=== PATIENT | female | born 1935 | race African-American/Black ===

== ENCOUNTER 2021-02-22 11:55 | Inpatient (IN) | payer MEDICARE, SELFPAY ==
[2021-02-22] VITALS (7 sets, daily range): BP systolic 172–212; BP diastolic 69–113; PULSE 58–86; RESP 11–20; TEMP 36.5–37; O2SAT 80–99; BMI 24.3
--- NOTE | 2021-02-22 | ECG_ITS ---
Test Reason : CP Blood Pressure : / mmHG Vent. Rate : 084 BPM Atrial Rate : 084 BPM P-R Int : 170 ms QRS Dur : 088 ms QT Int : 376 ms P-R-T Axes : 054 -19 134 degrees QTc Int : 444 ms Normal sinus rhythm Possible Left atrial enlargement Left ventricular hypertrophy with repolarization abnormality Abnormal ECG When compared with ECG of 24-DEC-2009 12:51, No significant change was found Referred By: Generic ED Physician Electronically Signed By:Shen Foley
--- NOTE | 2021-02-22 | ECG_ITS ---
Test Reason : CHEST PAIN Blood Pressure : / mmHG Vent. Rate : 067 BPM Atrial Rate : 067 BPM P-R Int : 166 ms QRS Dur : 082 ms QT Int : 444 ms P-R-T Axes : 049 -09 156 degrees QTc Int : 469 ms Normal sinus rhythm Possible Left atrial enlargement Left ventricular hypertrophy with repolarization abnormality Abnormal ECG When compared with ECG of 22-FEB-2021 12:04, T wave inversion now evident in Anterior leads Referred By: Prosper Rowland Electronically Signed By:Shen Foley
--- NOTE | ~2021-02-22 | XR_ITS ---
EXAMINATION: XR CHEST CLINICAL INFORMATION: Left-sided chest pain COMPARISON: Chest radiograph 12/24/2009 TECHNIQUE: 2 views of the chest were obtained. FINDINGS: There is mild cardiopericardial enlargement. The vascularity is normal. There is no vascular congestion, airspace consolidation, groundglass opacity, or effusion. No pneumothorax or pleural reaction. The costophrenic sulci are clear. The hilar and mediastinal contours are normal. There are multilevel degenerative changes thoracic spine. XR/XR chest 2V IMPRESSION: Mild cardiopericardial enlargement. Normal vascularity. Lungs clear. No pneumothorax.
[2021-02-22 12:21] LABS: MANUAL DIFF FLAG NO
[2021-02-22 12:25] LABS: Basophils Percent Auto 0.4 % (0-2); Eosinophils Absolute Auto 0.4 X10*3/uL (0.0-0.4); Eosinophils Percent Auto 4.7 % (0-4); Hematocrit 42.9 % (37-47); Hemoglobin 14.2 g/dl (12.0-16.0); Imm Gran Abs Auto 0.02 X10*3/uL (0.00-0.03); Imm Gran Pct Auto 0.2 % (0.0-0.4); Lymphocytes Percent Auto 24.2 % (20-40); Mean Corpuscular HGB Conc 33.1 g/dl (31.0-35.0); Mean Corpuscular Hemoglobin 27.5 pg (27.0-33.0); Mean Platelet Volume 10.5 fL (9.4-12.3); Monocytes Absolute Auto 0.4 X10*3/uL (0.1-1.2); Monocytes Percent Auto 5.3 % (2-11); Neutrophils Absolute Auto 5.3 X10*3/uL (2.0-8.3); Neutrophils Percent Auto 65.2 % (45-73); Platelet Count 204 X10*3/uL (160-400); Red Blood Count 5.17 X10*6/uL (4.20-5.50); Red Cell Distribution Width 15.4 % (11.0-16.0); White Blood Count 8.1 X10*3/uL (4.8-10.8)
[2021-02-22 13:07] LABS: Anion Gap 16 (12-20); Blood Urea Nitrogen 10 mg/dL (9-16); Calcium 9.7 mg/dL (8.4-10.2); Carbon Dioxide 22 mmol/L (22-29); Chloride 107 mmol/L (96-108); Creatinine Clr Calc Pharmacy 42.2; Estimated Glomerular Filt Rate > 60; Glucose Random 92 mg/dL (60-115); Sodium 141 mmol/L (135-145)
[2021-02-22 13:21] LABS: Glucose Urine UA NEG (NEG); Leukocyte Esterase Urine NEG (NEG); Nitrite Urine NEG (NEG); PH 7.5 (5.0-8.0); Specific Gravity - Urine 1.025 (1.005-1.025); Urine Blood TRACE (NEG); Urine Ketones NEG (NEG); Urine Protein 2+ MG/DL (NEG-TRACE)
[2021-02-22 13:26] LABS: Appearance Urine CLEAR; Color Urine YELLOW
[2021-02-22 13:35] LABS: Squamous Epithelial Cell Urine 1+ /LPF; WBC Urine 0-2 /HPF (0-4)
--- NOTE | 2021-02-22 15:03 | ED.CHESTPAIN ---
HPI - Chest Pain General Chief Complaint: Chest Pain Stated Complaint: chest pain Time Seen by Provider: 02/22/21 15:03 Related Data Allergies Allergy/AdvReac Type Severity Reaction Status Date / Time acetaminophen [From PERCOCET] Allergy Mild UNKNOWN Unverified 07/20/20 14:58 oxycodone [From PERCOCET] Allergy Mild UNKNOWN Unverified 07/20/20 14:58 pregabalin [From LYRICA] Allergy Mild UNKNOWN Unverified 07/20/20 14:58 Sulfa (Sulfonamide Allergy Unknown HIVES Unverified 07/20/20 14:58 Antibiotics) [SULFA(SULFONAMIDE ANTIBIOTICS)] sulfur Allergy Unknown Verified 03/01/13 00:00 [facility] Past Medical History Medical History (Updated 02/22/21 @ 12:54 by Henry Swanson) Arthritis Asthma GERD (gastroesophageal reflux disease) HLD (hyperlipidemia) Hypothyroid Spondylolysis Surgical History (Updated 02/22/21 @ 12:54 by Henry Swanson) History of hysterectomy Physical Exam Vital Signs: Vital Signs: Last Vital Signs Temp 98.4 F 02/22/21 12:50 Pulse 81 02/22/21 12:50 Resp 18 02/22/21 12:50 BP 207/95 H 02/22/21 12:50 Pulse Ox 99 02/22/21 12:50 Body Mass Index 24.3 Course Course Course Narrative: 1500-This is a rapid medical exam. 85 yo female with past medical history of chronic left sided cp for quite some time worsened over the last 1.5 weeks with no associated symptoms. Will check CXR, EKG, labs. Deferred additional HPI, ROS and PE to primary provider. MDM - Chest Pain Lab Data Result diagrams: 02/22/21 12:15 02/22/21 12:15 Labs: Lab Results 02/22/21 02/22/21 02/22/21 Range/Units 12:15 12:15 12:15 WBC 8.1 (4.8-10.8) X10*3/uL RBC 5.17 (4.20-5.50) X10*6/uL Hgb 14.2 (12.0-16.0) g/dl Hct 42.9 (37-47) % MCV 83.0 (80-98) fL MCH 27.5 (27.0-33.0) pg MCHC 33.1 (31.0-35.0) g/dl RDW 15.4 (11.0-16.0) % Plt Count 204 (160-400) X10*3/uL MPV 10.5 (9.4-12.3) fL Immature Gran % (Auto) 0.2 (0.0-0.4) % Neut % (Auto) 65.2 (45-73) % Lymph % (Auto) 24.2 (20-40) % [place] % (Auto) 5.3 (2-11) % Eos % (Auto) 4.7 H (0-4) % Baso % (Auto) 0.4 (0-2) % Lymph # (Auto) 2.0 (1.2-4.9) X10*3/uL [place] # (Auto) 0.4 (0.1-1.2) X10*3/uL Eos # (Auto) 0.4 (0.0-0.4) X10*3/uL Baso # (Auto) 0.0 (0.0-0.2) X10*3/uL Abs Immat Gran (auto) 0.02 (0.00-0.03) X10*3/uL Absolute Neuts (auto) 5.3 (2.0-8.3) X10*3/uL Absolute Nucleated RBC 0.000 (0.0-0.012) X10*3/uL Nucleated RBC % (auto) 0.0 (0.0-0.2) /100WBC Sodium 141 (135-145) mmol/L Potassium 4.0 (3.3-5.1) mmol/L Chloride 107 (96-108) mmol/L Carbon Dioxide 22 (22-29) mmol/L Anion Gap 16 (12-20) BUN 10 (9-16) mg/dL Creatinine 0.84 (0.5-1.4) mg/dL Estim Creat Clear Calc 42.2 Estimated GFR > 60 Random Glucose 92 (60-115) mg/dL Calcium 9.7 (8.4-10.2) mg/dL Troponin I High Sens 13.0 (<3.5-17.0) ng/L Urine Color Urine Appearance Urine pH (5.0-8.0) Ur Specific [place] (1.005-1.025) Urine Protein (NEG-TRACE) MG/DL Urine Glucose (UA) (NEG) MG/DL Urine Ketones (NEG) MG/DL Urine Blood (NEG) Urine Nitrite (NEG) Ur Leukocyte Esterase (NEG) Urine RBC (0) /HPF Urine WBC (0-4) /HPF Ur Squamous Epith Cells /LPF Urine Bacteria /LPF 02/22/21 Range/Units 13:03 WBC (4.8-10.8) X10*3/uL RBC (4.20-5.50) X10*6/uL Hgb (12.0-16.0) g/dl Hct (37-47) % MCV (80-98) fL MCH (27.0-33.0) pg MCHC (31.0-35.0) g/dl RDW (11.0-16.0) % Plt Count (160-400) X10*3/uL MPV (9.4-12.3) fL Immature Gran % (Auto) (0.0-0.4) % Neut % (Auto) (45-73) % Lymph % (Auto) (20-40) % [place] % (Auto) (2-11) % Eos % (Auto) (0-4) % Baso % (Auto) (0-2) % Lymph # (Auto) (1.2-4.9) X10*3/uL [place] # (Auto) (0.1-1.2) X10*3/uL Eos # (Auto) (0.0-0.4) X10*3/uL Baso # (Auto) (0.0-0.2) X10*3/uL Abs Immat Gran (auto) (0.00-0.03) X10*3/uL Absolute Neuts (auto) (2.0-8.3) X10*3/uL Absolute Nucleated RBC (0.0-0.012) X10*3/uL Nucleated RBC % (auto) (0.0-0.2) /100WBC Sodium (135-145) mmol/L Potassium (3.3-5.1) mmol/L Chloride (96-108) mmol/L Carbon Dioxide (22-29) mmol/L Anion Gap (12-20) BUN (9-16) mg/dL Creatinine (0.5-1.4) mg/dL Estim Creat Clear Calc Estimated GFR Random Glucose (60-115) mg/dL Calcium (8.4-10.2) mg/dL Troponin I High Sens (<3.5-17.0) ng/L Urine Color YELLOW Urine Appearance CLEAR Urine pH 7.5 (5.0-8.0) Ur Specific [place] 1.025 (1.005-1.025) Urine Protein 2+ H (NEG-TRACE) MG/DL Urine Glucose (UA) NEG (NEG) MG/DL Urine Ketones NEG (NEG) MG/DL Urine Blood TRACE (NEG) Urine Nitrite NEG (NEG) Ur Leukocyte Esterase NEG (NEG) Urine RBC 5-9 H (0) /HPF Urine WBC 0-2 (0-4) /HPF Ur Squamous Epith Cells 1+ /LPF Urine Bacteria NONE /LPF
[2021-02-22 16:03] LABS: Alanine Aminotransferase 13 U/L (0-31); Albumin Level 4.5 g/dL (3.5-5.0); Alkaline Phosphatase 79 U/L (39-117); Aspartate Amino Transferase 23 U/L (5-31); Bilirubin Direct 0.2 mg/dL (0.0-0.5); Bilirubin Total 0.8 mg/dL (0.0-1.0); Lipase 45 U/L (8-78); Total Protein 7.9 g/dL (6.5-8.0)
[2021-02-22 16:47] LABS: Troponin-I High Sensitivity 21.6 ng/L (<3.5-17.0)
--- NOTE | 2021-02-22 17:04 | ED.CHESTPAIN ---
HPI - Chest Pain General Chief Complaint: Chest Pain Stated Complaint: chest pain Time Seen by Provider: 02/22/21 15:03 Source: patient Mode of arrival: ambulatory Limitations: no limitations History of Present Illness HPI narrative: Patient history of hypertension high cholesterol hypothyroidism been having left-sided chest pain off and on for 2 yrs had multiple stress tests in the past been having chest pain for last 2 weeks got worse today since 07:00 o'clock when she woke up she noticed left-sided chest pain which is not going away , going to the left arm and left side of the neck on arrival patient's blood pressure was 207/95 with heart rate of 81 beats per minute no diaphoresis no nausea no vomiting no shortness of breath no cough MD complaint: chest pain Related Data Allergies Allergy/AdvReac Type Severity Reaction Status Date / Time acetaminophen [From PERCOCET] Allergy Mild UNKNOWN Verified 02/22/21 20:43 oxycodone [From PERCOCET] Allergy Mild UNKNOWN Verified 02/22/21 20:43 pregabalin [From LYRICA] Allergy Mild UNKNOWN Verified 02/22/21 20:43 Sulfa (Sulfonamide Allergy Unknown HIVES Verified 02/22/21 20:43 Antibiotics) [SULFA(SULFONAMIDE ANTIBIOTICS)] sulfur Allergy Unknown Unknown Verified 02/22/21 20:43 Review of Systems Review of Systems: Constitutional : No Weight loss, No Fever, No Chills ENT/Mouth : No sore throat, No Rhinorrhea Eyes: No Eye Pain, No Swelling Cardiovascular : + Chest Pain, no palpitations Respiratory : No Cough, No Sputum, no shortness of breath Gastrointestinal : no Nausea, No Vomiting, No Diarrhea, No abdominal Pain, no black stools Genitourinary : No Dysuria, No Urinary Frequency Musculoskeletal : No joint pain, No Myalgias, No Joint Swelling Skin : No Skin Lesions, No rash Neuro : No Weakness, No Numbness, No Dizziness, No Headache Psych : No Anxiety/Panic, No Depression Heme/Lymph: No Bruising, No Lymphadenopathy Endocrine : No Polyuria, No Polydipsia All other systems reviewed and are negative PMFSH Past Medical History Medical History Arthritis Asthma GERD (gastroesophageal reflux disease) HLD (hyperlipidemia) Hypertension Hypothyroid Spondylolysis Surgical History History of hysterectomy Social History Social History Alcohol intake: never Smoking Status: Unknown if ever smoked Use of substances other than those prescribed or required for medical reasons: No Advance Directives: No Advance Directives Information Provided: Yes Physical Exam Vital Signs: Vital Signs: Last Vital Signs Temp 97.7 F 02/22/21 23:50 Pulse 58 02/22/21 23:50 Resp 11 L 02/22/21 23:50 BP 172/69 H 02/22/21 23:50 Pulse Ox 97 02/22/21 23:50 Body Mass Index 24.3 Appearance: Alert. Oriented X3. No acute distress. Eyes: Pupils equal, round and reactive to light. ENT: Pharynx normal. Neck: Normal inspection. Neck supple. CVS: Normal heart rate and rhythm. Pulses normal. Respiratory: No respiratory distress. Breath sounds normal. Abdomen: Soft and nontender. Bowel sounds are present, no mass palpable, no CVA tenderness Skin: Skin warm and dry. Normal skin color. Normal skin turgor. Extremities: No lower extremity edema. No calf tenderness Neuro: Oriented X 3. No motor deficit. No sensory deficit. MDM - Chest Pain MDM Narrative Medical decision making narrative: Patient with left-sided chest pain with history of hiatal hernia continuous chest pain for last 12 hours EKG showed T inversion in inferolateral leads with LVH more prominent in the 2nd EKG facially on V2 and V3 troponin slightly increased to 26.4 from 13 earlier today. 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 Result diagrams: 02/22/21 12:15 02/22/21 12:15 Labs: Lab Results 02/22/21 02/22/21 02/22/21 Range/Units 12:15 12:15 12:15 WBC 8.1 (4.8-10.8) X10*3/uL RBC 5.17 (4.20-5.50) X10*6/uL Hgb 14.2 (12.0-16.0) g/dl Hct 42.9 (37-47) % MCV 83.0 (80-98) fL MCH 27.5 (27.0-33.0) pg MCHC 33.1 (31.0-35.0) g/dl RDW 15.4 (11.0-16.0) % Plt Count 204 (160-400) X10*3/uL MPV 10.5 (9.4-12.3) fL Immature Gran % (Auto) 0.2 (0.0-0.4) % Neut % (Auto) 65.2 (45-73) % Lymph % (Auto) 24.2 (20-40) % [place] % (Auto) 5.3 (2-11) % Eos % (Auto) 4.7 H (0-4) % Baso % (Auto) 0.4 (0-2) % Lymph # (Auto) 2.0 (1.2-4.9) X10*3/uL [place] # (Auto) 0.4 (0.1-1.2) X10*3/uL Eos # (Auto) 0.4 (0.0-0.4) X10*3/uL Baso # (Auto) 0.0 (0.0-0.2) X10*3/uL Abs Immat Gran (auto) 0.02 (0.00-0.03) X10*3/uL Absolute Neuts (auto) 5.3 (2.0-8.3) X10*3/uL Absolute Nucleated RBC 0.000 (0.0-0.012) X10*3/uL Nucleated RBC % (auto) 0.0 (0.0-0.2) /100WBC Sodium 141 (135-145) mmol/L Potassium 4.0 (3.3-5.1) mmol/L Chloride 107 (96-108) mmol/L Carbon Dioxide 22 (22-29) mmol/L Anion Gap 16 (12-20) BUN 10 (9-16) mg/dL Creatinine 0.84 (0.5-1.4) mg/dL Estim Creat Clear Calc 42.2 Estimated GFR > 60 Random Glucose 92 (60-115) mg/dL Calcium 9.7 (8.4-10.2) mg/dL Total Bilirubin 0.8 (0.0-1.0) mg/dL Direct Bilirubin 0.2 (0.0-0.5) mg/dL AST 23 (5-31) U/L ALT 13 (0-31) U/L Alkaline Phosphatase 79 (39-117) U/L Troponin I High Sens 13.0 (<3.5-17.0) ng/L Total Protein 7.9 (6.5-8.0) g/dL Albumin 4.5 (3.5-5.0) g/dL Lipase 45 (8-78) U/L Urine Color Urine Appearance Urine pH (5.0-8.0) Ur Specific [place] (1.005-1.025) Urine Protein (NEG-TRACE) MG/DL Urine Glucose (UA) (NEG) MG/DL Urine Ketones (NEG) MG/DL Urine Blood (NEG) Urine Nitrite (NEG) Ur Leukocyte Esterase (NEG) Urine RBC (0) /HPF Urine WBC (0-4) /HPF Ur Squamous Epith Cells /LPF Urine Bacteria /LPF 02/22/21 02/22/21 02/22/21 Range/Units 13:03 15:41 19:28 WBC (4.8-10.8) X10*3/uL RBC (4.20-5.50) X10*6/uL Hgb (12.0-16.0) g/dl Hct (37-47) % MCV (80-98) fL MCH (27.0-33.0) pg MCHC (31.0-35.0) g/dl RDW (11.0-16.0) % Plt Count (160-400) X10*3/uL MPV (9.4-12.3) fL Immature Gran % (Auto) (0.0-0.4) % Neut % (Auto) (45-73) % Lymph % (Auto) (20-40) % [place] % (Auto) (2-11) % Eos % (Auto) (0-4) % Baso % (Auto) (0-2) % Lymph # (Auto) (1.2-4.9) X10*3/uL [place] # (Auto) (0.1-1.2) X10*3/uL Eos # (Auto) (0.0-0.4) X10*3/uL Baso # (Auto) (0.0-0.2) X10*3/uL Abs Immat Gran (auto) (0.00-0.03) X10*3/uL Absolute Neuts (auto) (2.0-8.3) X10*3/uL Absolute Nucleated RBC (0.0-0.012) X10*3/uL Nucleated RBC % (auto) (0.0-0.2) /100WBC Sodium (135-145) mmol/L Potassium (3.3-5.1) mmol/L Chloride (96-108) mmol/L Carbon Dioxide (22-29) mmol/L Anion Gap (12-20) BUN (9-16) mg/dL Creatinine (0.5-1.4) mg/dL Estim Creat Clear Calc Estimated GFR Random Glucose (60-115) mg/dL Calcium (8.4-10.2) mg/dL Total Bilirubin (0.0-1.0) mg/dL Direct Bilirubin (0.0-0.5) mg/dL AST (5-31) U/L ALT (0-31) U/L Alkaline Phosphatase (39-117) U/L Troponin I High Sens 21.6 H D 26.4 H (<3.5-17.0) ng/L Total Protein (6.5-8.0) g/dL Albumin (3.5-5.0) g/dL Lipase (8-78) U/L Urine Color YELLOW Urine Appearance CLEAR Urine pH 7.5 (5.0-8.0) Ur Specific [place] 1.025 (1.005-1.025) Urine Protein 2+ H (NEG-TRACE) MG/DL Urine Glucose (UA) NEG (NEG) MG/DL Urine Ketones NEG (NEG) MG/DL Urine Blood TRACE (NEG) Urine Nitrite NEG (NEG) Ur Leukocyte Esterase NEG (NEG) Urine RBC 5-9 H (0) /HPF Urine WBC 0-2 (0-4) /HPF Ur Squamous Epith Cells 1+ /LPF Urine Bacteria NONE /LPF ECG Data ECG #1: Attestation: I personally reviewed and interpreted this ECG as follows: Interpretation: Normal sinus syndrome heart rate 84 beats per minute left atrial enlargement LVH with strain pattern no acute ST T wave changes normal axis no acute ischemia
[2021-02-22] MEDS: Nitroglycerin 2 % Oint 1 GM Packet 1 INCH TRANSDERMA (17:53)
[2021-02-22] MEDS: Aspirin Enteric Coated 81 MG TABLET.DR 162 MG PO (17:53)
[2021-02-22] MEDS: Metoprolol Tartrate 5 MG/5 ML VIAL IVPUSH (18:04)
[2021-02-22 20:02] LABS: Troponin-I High Sensitivity 26.4 ng/L (<3.5-17.0)
--- NOTE | 2021-02-22 20:05 | PC.NURSE ---
Pt calling RN reporting 10 central nonradiating chest pain. MD mitchell aware of symtpoms and elevated trop result. EKG currently being obtained.
[2021-02-22] MEDS: Magnesium Hydrox/Alum Hydrox 30 ML ORAL.SUSP PO (20:26)
[2021-02-22] MEDS: Morphine Sulfate 4 MG/ML CARTRIDGE IVPUSH (20:26)
[2021-02-22] MEDS: Heparin Sodium,Porcine 5,000 UNIT/ML VIAL 4000 UNIT IVPUSH (20:26)
[2021-02-22] MEDS: ondansetron HCL 4 MG/2 ML VIAL IVPUSH (20:26)
[2021-02-22] MEDS: Famotidine/PF 20 MG/2 ML VIAL IVPUSH (20:47)
[2021-02-22] MEDS: Heparin Sodium,Porcine/1/2NS 25,000 UNIT/250 ML IV.SOLN 7.73 UNIT IVCONT (21:11)
--- NOTE | 2021-02-22 22:07 | PC.NURSE ---
Pt continues to have chest pain central with some stabbing pain in left shoulder. MD Gibbons aware.
[2021-02-22] MEDS: Lidocaine HCl Viscous 2 % 15 ML SOLUTION MUCOUS MEM (22:40)
--- NOTE | 2021-02-23 | ECG_ITS ---
Test Reason : REPEAT Blood Pressure : / mmHG Vent. Rate : 055 BPM Atrial Rate : 055 BPM P-R Int : 170 ms QRS Dur : 084 ms QT Int : 488 ms P-R-T Axes : 054 -14 174 degrees QTc Int : 466 ms Sinus bradycardia with Premature atrial complexes Left ventricular hypertrophy with repolarization abnormality Abnormal ECG When compared with ECG of 23-FEB-2021 02:13, Premature atrial complexes are now Present Referred By: Prosper Rowland Electronically Signed By:SONIDO JOHNSON MD
--- NOTE | 2021-02-23 | ECG_ITS ---
Test Reason : CHEST PAIN Blood Pressure : / mmHG Vent. Rate : 064 BPM Atrial Rate : 064 BPM P-R Int : 170 ms QRS Dur : 084 ms QT Int : 448 ms P-R-T Axes : 059 -06 156 degrees QTc Int : 462 ms Normal sinus rhythm Possible Left atrial enlargement Left ventricular hypertrophy with repolarization abnormality Abnormal ECG When compared with ECG of 22-FEB-2021 20:08, No significant change was found Referred By: Prosper Rowland Electronically Signed By:Shen Foley
[2021-02-23 01:03] LABS: Troponin-I High Sensitivity 22.7 ng/L (<3.5-17.0)
--- NOTE | 2021-02-23 02:32 | PC.NURSE ---
PT moved to room 14 because the noise and stimulation in room 13 was causing the PT to have anxiety and subsequent chest pain. EKG was done with no significant findings.
[2021-02-23 02:34] VITALS: BP 171/69; PULSE 64; RESP 18; O2SAT 95
--- NOTE | 2021-02-23 04:23 | PM.IMHP ---
History of Present Illness Date of Service: 02/22/21 Chief Complaint: Chest pain This is a pleasant 85-year-old female with past medical history of hypothyroidism, HLD, who presents to the hospital with complaints of chest pain. Patient reports that she has had this chest pain intermittently for the past 2 years but she had 2 episodes on Friday and today. She reports that the pain is midsternal, comes on spontaneously, localized to the midsternal region, feels like something sitting on her chest, last few minutes and resolved spontaneously. She reports that today's episode has remained with her all day, she had 1 episode in the ED where she felt a squeezing in her chest and the pain was 10/10. She otherwise denies any headache, change in vision, no shortness of breath, no palpitation, no abdominal pain nausea or vomiting, no diarrhea constipation, no urinary symptoms and no lower extremity edema. On arrival to the ED hemodynamically stable with no significant abnormal vitals except for elevated blood pressure of 207/95, improved to 170 1/69 at this time Labs are significant for WBC of 8.1, hemoglobin of 14.2, initial high sensitivity troponin of 13 that increased to 21 than 226. Now is 22.7 EKG shows T-wave inversions in lead 1, aVL, V5 and V6. Case was discussed with Cardiology and decision was made to admit patient for NSTEMI. Patient was placed on heparin GGT. Past medical history as below and confirmed with patient Review of Systems Review of Systems: Yes all other systems are reviewed and are negative [facility] Medical History Arthritis Asthma GERD (gastroesophageal reflux disease) HLD (hyperlipidemia) Hypertension Hypothyroid Spondylolysis Surgical History History of hysterectomy Social History Alcohol intake: never Smoking Status: Unknown if ever smoked Use of substances other than those prescribed or required for medical reasons: No Advance Directives: No Advance Directives Information Provided: Yes Meds Allergies Allergy/AdvReac Type Severity Reaction Status Date / Time acetaminophen [From PERCOCET] Allergy Mild UNKNOWN Verified 02/22/21 20:43 oxycodone [From PERCOCET] Allergy Mild UNKNOWN Verified 02/22/21 20:43 pregabalin [From LYRICA] Allergy Mild UNKNOWN Verified 02/22/21 20:43 Sulfa (Sulfonamide Allergy Unknown HIVES Verified 02/22/21 20:43 Antibiotics) [SULFA(SULFONAMIDE ANTIBIOTICS)] sulfur Allergy Unknown Unknown Verified 02/22/21 20:43 Active Medications: Current Medications Generic Name Dose Route Start Last Admin Trade Name Freq PRN Reason Stop Dose Admin Heparin Sodium/Sodium Chloride 25,000 unit in 250 mls @ 0 mls/hr 02/22/21 20:30 02/22/21 21:11 IVCONT 12 units/kg/hr .Q0M ELVIA 7.73 mls/hr Administration Protocol Per Protocol Physical Exam Vital Signs and Narrative: Vital Signs: Last Vital Signs Temp 97.7 F 02/22/21 23:50 Pulse 64 02/23/21 02:34 Resp 18 02/23/21 02:34 BP 171/69 H 02/23/21 02:34 Pulse Ox 95 02/23/21 02:34 Body Mass Index 24.3 Const: General: cooperative and no acute distress Orientation/consciousness: patient oriented x3 Eyes: General: appearance normal, both eyes and all related structures Resp: Effort & Inspection: normal respiratory effort and able to speak in complete sentences Cardio: Rate: regular rate Rhythm: regular rhythm GI: Palpation (GI): Soft to palpation Auscultation: normal bowel sounds Skin: General skin exam: no rashes or lesions noted Neuro: General: patient oriented x3 Cognition (Neuro): normal cognition Extrem: General: Yes normal to inspection and Yes no pedal edema Results Labs CBC and Chem 7: 02/22/21 12:15 02/22/21 12:15 Labs: Laboratory Results - last 24 hr 02/22/21 02/22/21 02/22/21 12:15 12:15 12:15 MCV 83.0 MCH 27.5 MCHC 33.1 RDW 15.4 Plt Count 204 MPV 10.5 Immature Gran % (Auto) 0.2 Neut % (Auto) 65.2 Lymph % (Auto) 24.2 [place] % (Auto) 5.3 Eos % (Auto) 4.7 H Baso % (Auto) 0.4 Lymph # (Auto) 2.0 [place] # (Auto) 0.4 Eos # (Auto) 0.4 Baso # (Auto) 0.0 Abs Immat Gran (auto) 0.02 Absolute Neuts (auto) 5.3 Absolute Nucleated RBC 0.000 Nucleated RBC % (auto) 0.0 Anion Gap 16 Estim Creat Clear Calc 42.2 Estimated GFR > 60 Random Glucose 92 Calcium 9.7 Total Bilirubin 0.8 Direct Bilirubin 0.2 AST 23 ALT 13 Alkaline Phosphatase 79 Troponin I High Sens 13.0 Total Protein 7.9 Albumin 4.5 Lipase 45 Urine Color Urine Appearance Urine pH Ur Specific [place] Urine Protein Urine Glucose (UA) Urine Ketones Urine Blood Urine Nitrite Ur Leukocyte Esterase Urine RBC Urine WBC Ur Squamous Epith Cells Urine Bacteria 02/22/21 02/22/21 02/22/21 13:03 15:41 19:28 MCV MCH MCHC RDW Plt Count MPV Immature Gran % (Auto) Neut % (Auto) Lymph % (Auto) [place] % (Auto) Eos % (Auto) Baso % (Auto) Lymph # (Auto) [place] # (Auto) Eos # (Auto) Baso # (Auto) Abs Immat Gran (auto) Absolute Neuts (auto) Absolute Nucleated RBC Nucleated RBC % (auto) Anion Gap Estim Creat Clear Calc Estimated GFR Random Glucose Calcium Total Bilirubin Direct Bilirubin AST ALT Alkaline Phosphatase Troponin I High Sens 21.6 H D 26.4 H Total Protein Albumin Lipase Urine Color YELLOW Urine Appearance CLEAR Urine pH 7.5 Ur Specific [place] 1.025 Urine Protein 2+ H Urine Glucose (UA) NEG Urine Ketones NEG Urine Blood TRACE Urine Nitrite NEG Ur Leukocyte Esterase NEG Urine RBC 5-9 H Urine WBC 0-2 Ur Squamous Epith Cells 1+ Urine Bacteria NONE 02/23/21 00:30 MCV MCH MCHC RDW Plt Count MPV Immature Gran % (Auto) Neut % (Auto) Lymph % (Auto) [place] % (Auto) Eos % (Auto) Baso % (Auto) Lymph # (Auto) [place] # (Auto) Eos # (Auto) Baso # (Auto) Abs Immat Gran (auto) Absolute Neuts (auto) Absolute Nucleated RBC Nucleated RBC % (auto) Anion Gap Estim Creat Clear Calc Estimated GFR Random Glucose Calcium Total Bilirubin Direct Bilirubin AST ALT Alkaline Phosphatase Troponin I High Sens 22.7 H Total Protein Albumin Lipase Urine Color Urine Appearance Urine pH Ur Specific [place] Urine Protein Urine Glucose (UA) Urine Ketones Urine Blood Urine Nitrite Ur Leukocyte Esterase Urine RBC Urine WBC Ur Squamous Epith Cells Urine Bacteria Imaging Radiologist's Impressions: Impressions Chest X-Ray 02/22/21 15:04 IMPRESSION: Mild cardiopericardial enlargement. Normal vascularity. Lungs clear. No pneumothorax. Assessment and Plan (1) Non-STEMI (non-ST elevated myocardial infarction): Status: Acute 85-year-old female past medical history of hypothyroidism, asthma, hypertension presents to the hospital with chest pain found to have NSTEMI # NSTEMI - typical chest pain, slightly elevated troponin, EKG showing T-wave inversions in V5, V6, 1 and aVL - was hypertensive on arrival which may have caused or contributed - high sensitivity troponin trended up to 27 - patient placed on heparin GGT - will obtain echocardiogram - cardiology consult - start on Lopressor, and high-dose statin # hypertensive urgency - patient blood pressure of 207/97 on arrival - currently 170s over 69 - it does not appear that patient is on any medications for hypertension at home - will start her on lisinopril 10 mg and can titrate up as appropriate # Hypothyroidsim - continue home meds # Asthma - no exacerbation - continue PRN inhalers Med review still pending by nursing staff DVT prophylaxis:heparin
[2021-02-23 05:23] LABS: COVID-19 Test Negative (Negative); IDNOW Serial# 9DD0AD1C
[2021-02-23 06:24] VITALS: BP 176/80; PULSE 58; RESP 18; O2SAT 95
--- NOTE | 2021-02-23 07:34 | CA_ITS ---
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 The visually estimated ejection fraction is >70%. - E/E prime ratio is >15, consistent with elevated filling pressures. - Normal right ventricular cavity size and systolic function. - The left atrium is normal in size. Findings Left Ventricle Normal left ventricular cavity size. There is moderately increased left ventricular wall thickness. The left ventricular systolic function is hyperdynamic. The visually estimated ejection fraction is >70%. There is no evidence of regional wall motion abnormalities. Abnormal diastolic function is noted. Spectral Doppler is indicative of an impaired relaxation filling pattern. E/E prime ratio is >15, consistent with elevated filling pressures. Right Ventricle Normal right ventricular cavity size and systolic function. Atria The left atrium is normal in size. Aortic Valve Normal aortic valve structure and function. There is no aortic valve stenosis. There is no aortic valve regurgitation. Mitral Valve There is moderate mitral annular calcification. There is no mitral valve regurgitation. There is no mitral valve stenosis. Pulmonic Valve The pulmonic valve is likely normal. Tricuspid Valve Normal tricuspid valve structure and function. There is trace tricuspid valve regurgitation. Tricuspid regurgitation envelope is inadequate for calculation of right ventricular systolic pressure. Normal right atrial pressure. Great Vessels All visible segments of the aorta are normal in size. The visualized portions of the pulmonary artery and branches are normal. Venous The inferior vena cava is normal in size and collapses greater than 50% with inspiration. Pericardium/Pleural There is no evidence of pericardial effusion. Prior Study Comparison No prior study available for comparison. Measurements 2D Linear Measurements IVSd: 1.20 0.6-0.9/0.6-1.0 cm LVIDd: 3.42 3.9-5.3/4.2-5.9 cm LVIDd Index: 2.01 2.4-3.2/2.2-3.1 cm/m2 LVIDs: 2.16 2.0-3.6 cm LVPWd: 1.09 0.7-1.1 cm Ao Root: 2.70 2.1-3.5 cm LA Diam: 3.40 2.7-3.8/3.0-4.0 cm LAIDs Index: 2.00 1.5-2.3 cm/m2 LV Mass: 321.27 67-162/88-224 g LV Mass Index: 188.98 43-95/49-115 g/m2 LVOT Diam: 2.10 3.0+(-)1.3 cm Mitral Valve MV Pk E: 0.81 MV PK A: 1.22 MV Decel Time: 306.00 E/A: 0.70 E'Lateral: 3.48 E'Medial: 3.26 E/E' Med: 24.80 E/E' Lat: 23.20 PHT: 90.00 MVA PHT: 2.44 Decel Harnett: 2.64 Aortic Valve AoV Pk Portillo: 1.82 AoV Mn Portillo: 1.10 AoV VTI: 0.35 AoV Pk Grad: 13.00 Aov Mn Grad: 6.00 ROXY Cont.VTI: 2.76 LVOT LVOT Pk Portillo: 1.20 LVOT Mn Portillo: 0.83 LVOT VTI: 0.28 LVOT Pk Grad: 6.00 LVOT Mn Grad: 3.00 LVOT Diam: 2.10 LVOT Area: 3.46 Diastolic Function MV Pk E: 0.81 MV Pk A: 1.22 E/A: 0.70 E'Medial: 3.26 E/E' Med: 24.80 E' Laterial: 3.48 E/E' Lat: 23.20 Tricuspid Valve TR Pk Portillo: 2.58 TR Pk Grad: 27.00 Great Vessels Aorta Ao Root-2D: 2.70 2.0-3.7 cm Ao Asc: 2.90 2.1-3.4 cm Pulmonary Valve PV Pk Portillo: 0.91 Peak PV Grad: 3.00 Updated in Other Vendor System with Status of Final Shen Foley MD electronically signed on 02/23/2021 9:16:25 PM with status of Final
[2021-02-23 07:46] VITALS: BP 200/100; PULSE 72
[2021-02-23] MEDS: Atorvastatin Calcium 40 MG TABLET PO (07:46)
[2021-02-23] MEDS: lisinopriL 10 MG TABLET PO (07:46)
[2021-02-23] MEDS: Aspirin 81 MG TAB.CHEW PO (07:46)
[2021-02-23] MEDS: Metoprolol Tartrate 12.5 MG HALFTAB PO (07:47)
[2021-02-23 07:52] LABS: MANUAL DIFF FLAG NO
[2021-02-23 07:54] LABS: Basophils Percent Auto 0.2 % (0-2); Eosinophils Absolute Auto 0.4 X10*3/uL (0.0-0.4); Eosinophils Percent Auto 3.9 % (0-4); Hematocrit 41.2 % (37-47); Hemoglobin 13.4 g/dl (12.0-16.0); Imm Gran Abs Auto 0.05 X10*3/uL (0.00-0.03); Imm Gran Pct Auto 0.5 % (0.0-0.4); Lymphocytes Absolute Auto 1.9 X10*3/uL (1.2-4.9); Lymphocytes Percent Auto 20.5 % (20-40); Mean Corpuscular HGB Conc 32.5 g/dl (31.0-35.0); Mean Corpuscular Hemoglobin 27.3 pg (27.0-33.0); Mean Corpuscular Volume 83.9 fL (80-98); Mean Platelet Volume 10.5 fL (9.4-12.3); Monocytes Absolute Auto 0.4 X10*3/uL (0.1-1.2); Monocytes Percent Auto 3.7 % (2-11); Neutrophils Absolute Auto 6.7 X10*3/uL (2.0-8.3); Neutrophils Percent Auto 71.2 % (45-73); Platelet Count 177 X10*3/uL (160-400); Red Blood Count 4.91 X10*6/uL (4.20-5.50); Red Cell Distribution Width 15.7 % (11.0-16.0); White Blood Count 9.5 X10*3/uL (4.8-10.8)
[2021-02-23 08:04] LABS: PTT Heparin Drip 98.9 SEC (53-77.9)
[2021-02-23 08:17] LABS: Anion Gap 16 (12-20); Blood Urea Nitrogen 8 mg/dL (9-16); Calcium 9.5 mg/dL (8.4-10.2); Carbon Dioxide 19 mmol/L (22-29); Chloride 105 mmol/L (96-108); Creatinine Clr Calc Pharmacy 42.2; Estimated Glomerular Filt Rate > 60; Glucose Random 121 mg/dL (60-115); Potassium 4.4 mmol/L (3.3-5.1); Sodium 136 mmol/L (135-145)
[2021-02-23 08:24] VITALS: BP 159/50; PULSE 63; RESP 16
--- NOTE | 2021-02-23 09:59 | PM.CNCAR ---
History of Present Illness History of Present Illness Date of Service: 02/23/21 Requesting physician: David Khan Chief complaint: NSTEMI Narrative: 85-year-old female here for CP. She has been noticed to have significantly high blood pressures. She is saying she has had indigestion like feeling ongoing for years. In the last 2 weeks she had persistent indigestion like feeling and then chest pressure yesterday. She said she has persistent chest pressure since yesterday. Her blood pressure was significantly elevated and was as high as 200/113. At the time of interview she said she is still having some chest pressure. She was physically active at home and was riding a bike and doing some exercises without symptoms. She also said her blood pressure previously was normal. ECG is showing anterolateral T-wave inversions which are new. We have done a bedside echocardiogram and I looked at the wall motion while it was being done at was completely normal. She has significant left ventricular hypertrophy. Cardiac enzymes went up slightly but repeat testing was flat. She was started on heparin drip and is on heparin drip right now. Review of Systems Review of Systems: Chest pressure Yes all other systems are reviewed and are negative [facility] Past Medical History Medical History Arthritis Asthma GERD (gastroesophageal reflux disease) HLD (hyperlipidemia) Hypertension Hypothyroid Spondylolysis Surgical History Surgical History History of hysterectomy Social History Social History Alcohol intake: never Smoking Status: Unknown if ever smoked Use of substances other than those prescribed or required for medical reasons: No Advance Directives: Yes Advance Directives on File: Yes Advance Directives Date on File: 02/23/21 Meds Allergies Allergy/AdvReac Type Severity Reaction Status Date / Time acetaminophen [From PERCOCET] Allergy Mild UNKNOWN Verified 02/22/21 20:43 oxycodone [From PERCOCET] Allergy Mild UNKNOWN Verified 02/22/21 20:43 pregabalin [From LYRICA] Allergy Mild UNKNOWN Verified 02/22/21 20:43 Sulfa (Sulfonamide Allergy Unknown HIVES Verified 02/22/21 20:43 Antibiotics) [SULFA(SULFONAMIDE ANTIBIOTICS)] sulfur Allergy Unknown Unknown Verified 02/22/21 20:43 Active Medications: Current Medications Generic Name Dose Route Start Last Admin Trade Name Freq PRN Reason Stop Dose Admin Amlodipine Besylate 5 mg 02/23/21 10:00 Amlodipine Besylate 5 Mg Tablet PO DAILY [facility] Protocol Aspirin 81 mg 02/23/21 09:00 02/23/21 07:46 Aspirin 81 Mg Tab.Chew PO 81 mg DAILY [facility] Administration Atorvastatin Calcium 40 mg 02/23/21 09:00 02/23/21 07:46 Atorvastatin Calcium 40 Mg Tablet PO 40 mg DAILY [facility] Administration Docusate Sodium 100 mg 02/23/21 07:34 Docusate Sodium 100 Mg Capsule PO DAILY PRN Constipation Heparin Sodium/Sodium Chloride 25,000 unit in 250 mls @ 0 mls/hr 02/22/21 20:30 02/22/21 21:11 IVCONT 12 units/kg/hr .Q0M [facility] 7.73 mls/hr Administration Protocol Per Protocol Lisinopril 10 mg 02/23/21 09:00 02/23/21 07:46 Lisinopril 10 Mg Tablet PO 10 mg DAILY [facility] Administration Protocol Metoprolol Tartrate 12.5 mg 02/23/21 09:00 02/23/21 07:47 Metoprolol Tartrate 12.5 Mg Halftab PO 12.5 mg BID [facility] Administration Protocol Nitroglycerin 1 inch 02/23/21 14:00 Nitroglycerin 2 % Oint 1 Gm Packet TRANSDERMA RQ6H WHILE AWAKE [facility] Ondansetron HCl 4 mg 02/23/21 07:34 Ondansetron Hcl 4 Mg/2 Ml Vial IVPUSH Q8H PRN Nausea and Vomiting Sodium Chloride 3 ml 02/23/21 07:34 02/23/21 08:29 0.9 % Sodium Chloride Flush 3 Ml Syringe IVFLUSH Not Given QSHIFT [facility] Home Medications Medication Instructions Recorded Confirmed Last Taken Type albuterol sulfate 2 puff INHALATION Q6H PRN 02/23/21 02/23/21 02/22/21 History ezetimibe 1 tab PO DAILY 02/23/21 02/23/21 02/22/21 History fluticasone propionate 2 spray INTRANASAL DAILY 02/23/21 02/23/21 02/22/21 History levothyroxine 1 tab PO DAILY 02/23/21 02/23/2121 History montelukast 1 tab PO DAILY 02/23/21 02/23/21 02/22/21 History omeprazole 1 cap PO DAILY 02/23/21 02/23/21 02/22/21 History oxybutynin chloride 1 tab PO DAILY 02/23/21 02/23/21 02/22/21 History rosuvastatin 1 tab PO DAILY 02/23/21 02/23/21 02/22/21 History timolol maleate 1 drp QAM 02/23/21 02/23/21 02/22/21 History Physical Exam Vital Signs: Vital Signs: Last Vital Signs Temp 97.7 F 02/22/21 23:50 Pulse 63 02/23/21 08:24 Resp 16 02/23/21 08:24 BP 159/50 H 02/23/21 08:24 Pulse Ox 95 02/23/21 06:24 Body Mass Index 24.3 GENERAL APPEARANCE: Pleasant, in no acute distress. HEENT: unremarkable. HEAD: normocephalic, atraumatic. NECK/THYROID: no carotid bruit, no jugular venous distention. SKIN: no suspicious lesions, warm and dry. HEART: no murmurs, regular rate and rhythm, S1, S2 normal. LUNGS: Few crackles at bases. ABDOMEN: normal, bowel sounds present, soft, nontender, nondistended. EXTREMITIES: no clubbing, cyanosis, or edema. PERIPHERAL PULSES: equal. NEUROLOGIC: nonfocal, alert and oriented. PSYCH: mood/affect full range. Results Labs and Meds Result diagrams: 02/23/21 07:47 02/23/21 07:47 Lab results: Laboratory Results - last 24 hr 02/22/21 02/22/21 02/22/21 12:15 12:15 12:15 WBC 8.1 RBC 5.17 Hgb 14.2 Hct 42.9 MCV 83.0 MCH 27.5 MCHC 33.1 RDW 15.4 Plt Count 204 MPV 10.5 Immature Gran % (Auto) 0.2 Neut % (Auto) 65.2 Lymph % (Auto) 24.2 [place] % (Auto) 5.3 Eos % (Auto) 4.7 H Baso % (Auto) 0.4 Lymph # (Auto) 2.0 Woodson # (Auto) 0.4 Eos # (Auto) 0.4 Baso # (Auto) 0.0 Abs Immat Gran (auto) 0.02 Absolute Neuts (auto) 5.3 Absolute Nucleated RBC 0.000 Nucleated RBC % (auto) 0.0 PTT (Heparin Protocol) Sodium 141 Potassium 4.0 Chloride 107 Carbon Dioxide 22 Anion Gap 16 BUN 10 Creatinine 0.84 Estim Creat Clear Calc 42.2 Estimated GFR > 60 Random Glucose 92 Calcium 9.7 Total Bilirubin 0.8 Direct Bilirubin 0.2 AST 23 ALT 13 Alkaline Phosphatase 79 Troponin I High Sens 13.0 Total Protein 7.9 Albumin 4.5 Lipase 45 Urine Color Urine Appearance Urine pH Ur Specific [place] Urine Protein Urine Glucose (UA) Urine Ketones Urine Blood Urine Nitrite Ur Leukocyte Esterase Urine RBC Urine WBC Ur Squamous Epith Cells Urine Bacteria COVID-19 (ELAINE) COVID-19 Who@ 02/22/21 02/22/21 02/22/21 13:03 15:41 19:28 WBC RBC Hgb Hct MCV MCH MCHC RDW Plt Count MPV Immature Gran % (Auto) Neut % (Auto) Lymph % (Auto) [place] % (Auto) Eos % (Auto) Baso % (Auto) Lymph # (Auto) [place] # (Auto) Eos # (Auto) Baso # (Auto) Abs Immat Gran (auto) Absolute Neuts (auto) Absolute Nucleated RBC Nucleated RBC % (auto) PTT (Heparin Protocol) Sodium Potassium Chloride Carbon Dioxide Anion Gap BUN Creatinine Estim Creat Clear Calc Estimated GFR Random Glucose Calcium Total Bilirubin Direct Bilirubin AST ALT Alkaline Phosphatase Troponin I High Sens 21.6 H D 26.4 H Total Protein Albumin Lipase Urine Color YELLOW Urine Appearance CLEAR Urine pH 7.5 Ur Specific [place] 1.025 Urine Protein 2+ H Urine Glucose (UA) NEG Urine Ketones NEG Urine Blood TRACE Urine Nitrite NEG Ur Leukocyte Esterase NEG Urine RBC 5-9 H Urine WBC 0-2 Ur Squamous Epith Cells 1+ Urine Bacteria NONE COVID-19 (ELAINE) COVID-19 Who@ 02/23/21 02/23/21 02/23/21 00:30 05:04 07:47 WBC 9.5 RBC 4.91 Hgb 13.4 Hct 41.2 MCV 83.9 MCH 27.3 MCHC 32.5 RDW 15.7 Plt Count 177 MPV 10.5 Immature Gran % (Auto) 0.5 H Neut % (Auto) 71.2 Lymph % (Auto) 20.5 Woodson % (Auto) 3.7 Eos % (Auto) 3.9 Baso % (Auto) 0.2 Lymph # (Auto) 1.9 [place]son # (Auto) 0.4 Eos # (Auto) 0.4 Baso # (Auto) 0.0 Abs Immat Gran (auto) 0.05 H Absolute Neuts (auto) 6.7 Absolute Nucleated RBC 0.000 Nucleated RBC % (auto) 0.0 PTT (Heparin Protocol) Sodium Potassium Chloride Carbon Dioxide Anion Gap BUN Creatinine Estim Creat Clear Calc Estimated GFR Random Glucose Calcium Total Bilirubin Direct Bilirubin AST ALT Alkaline Phosphatase Troponin I High Sens 22.7 H Total Protein Albumin Lipase Urine Color Urine Appearance Urine pH Ur Specific [place] Urine Protein Urine Glucose (UA) Urine Ketones Urine Blood Urine Nitrite Ur Leukocyte Esterase Urine RBC Urine WBC Ur Squamous Epith Cells Urine Bacteria COVID-19 (ELAINE) Negative COVID-19 Clin Com See Note 02/23/21 02/23/21 07:47 07:47 WBC RBC Hgb Hct MCV MCH MCHC RDW Plt Count MPV Immature Gran % (Auto) Neut % (Auto) Lymph % (Auto) [place] % (Auto) Eos % (Auto) Baso % (Auto) Lymph # (Auto) [place] # (Auto) Eos # (Auto) Baso # (Auto) Abs Immat Gran (auto) Absolute Neuts (auto) Absolute Nucleated RBC Nucleated RBC % (auto) PTT (Heparin Protocol) 98.9 H Sodium 136 Potassium 4.4 Chloride 105 Carbon Dioxide 19 L Anion Gap 16 BUN 8 L Creatinine 0.84 Estim Creat Clear Calc 42.2 Estimated GFR > 60 Random Glucose 121 H Calcium 9.5 Total Bilirubin Direct Bilirubin AST ALT Alkaline Phosphatase Troponin I High Sens Total Protein Albumin Lipase Urine Color Urine Appearance Urine pH Ur Specific [place] Urine Protein Urine Glucose (UA) Urine Ketones Urine Blood Urine Nitrite Ur Leukocyte Esterase Urine RBC Urine WBC Ur Squamous Epith Cells Urine Bacteria COVID-19 (ELAINE) COVID-19 Clin Com Imaging Radiologist's impression: Impressions Chest X-Ray 02/22/21 15:04 IMPRESSION: Mild cardiopericardial enlargement. Normal vascularity. Lungs clear. No pneumothorax. Assessment and Plan (1) Non-STEMI (non-ST elevated myocardial infarction): Status: Acute (2) Uncontrolled hypertension: Status: Acute 85-year-old female who is presenting with chest discomfort. She has been experiencing some indigestion like feeling for long time. Over the last 2 weeks she has persistent ejection like feeling and then some chest pressure. With these symptoms she came to [facility] and was found to have significantly elevated blood pressures. She was started on lisinopril and metoprolol and her blood pressure has come down. She is saying with blood pressure control her chest discomfort is improving. Her troponins are very mildly abnormal. Echocardiography is not showing any wall motion abnormality. She has significant left ventricular hypertrophy. I think her presentation is likely due to uncontrolled hypertension. I will repeat her EKG to see if the changes are improving. If she has persistent changes despite blood pressure control then I think we need to transfer to [facility] and consider doing a diagnostic angiogram on her. She is on heparin drip right now which I will continue. We will follow along with you. Thank you for allowing me to participate in the care of your patient. Please feel free to contact me if you have any questions.
--- NOTE | 2021-02-23 10:17 | MHC.CM.PN ---
Attempted to meet with patient in regards to discharge planning. Patient is currently eating breakfast. Will attempt to meet again. Continue to monitor for d/c needs.
[2021-02-23 10:57] VITALS: BP 116/40; PULSE 61; RESP 18; O2SAT 95
--- NOTE | 2021-02-23 12:28 | PM.DS ---
DS: Providers Provider Date of Service: 02/23/21 Date of admission: 02/22/21 23:09 Primary care physician: Gerardo Teresa MD Consults: 02/23/21 07:34 Consult to Cardiology Routine Consulting Provider: Shen Foley Reason for consultation: NSTEMI Has provider been notified: Yes DS: Diagnosis Discharge Diagnosis (1) Non-STEMI (non-ST elevated myocardial infarction): Status: Acute (2) Uncontrolled hypertension: Status: Acute DS: Medications Discharge Medications Home Medications: Home Medications Medication Instructions Recorded Confirmed albuterol sulfate 2 puff INHALATION Q6H PRN 02/23/21 02/23/21 ezetimibe 1 tab PO DAILY 02/23/21 02/23/21 fluticasone propionate 2 spray INTRANASAL DAILY 02/23/21 02/23/21 levothyroxine 1 tab PO DAILY 02/23/21 02/23/21 montelukast 1 tab PO DAILY 02/23/21 02/23/21 omeprazole 1 cap PO DAILY 02/23/21 02/23/21 oxybutynin chloride 1 tab PO DAILY 02/23/21 02/23/21 rosuvastatin 1 tab PO DAILY 02/23/21 02/23/21 timolol maleate 1 drp QAM 02/23/21 02/23/21 DS: Summary Hospital Course Hospital Course: This is a pleasant 85-year-old female with past medical history of hypothyroidism, HLD, who presents to the hospital with complaints of chest pain. Patient reports that she has had this chest pain intermittently for the past 2 years but she had 2 episodes on Friday and today. She reports that the pain is midsternal, comes on spontaneously, localized to the midsternal region, feels like something sitting on her chest, last few minutes and resolved spontaneously. She reports that today's episode has remained with her all day, she had 1 episode in the ED where she felt a squeezing in her chest and the pain was 10/10. She otherwise denies any headache, change in vision, no shortness of breath, no palpitation, no abdominal pain nausea or vomiting, no diarrhea constipation, no urinary symptoms and no lower extremity edema. On arrival to the ED hemodynamically stable with no significant abnormal vitals except for elevated blood pressure of 207/95, improved to 170 1/69 at this time Labs are significant for WBC of 8.1, hemoglobin of 14.2, initial high sensitivity troponin of 13 that increased to 21 than 226. Now is 22.7 EKG shows T-wave inversions in lead 1, aVL, V5 and V6. Case was discussed with Cardiology and decision was made to admit patient for NSTEMI. Patient was placed on heparin GGT. NSTEMI- Patient was admitted to telemetry unit and placed on a heparin drip. She was started on aspirin, beta-salena, statin as well as lisinopril. Her highly sensitive troponin remained flat at 21.6, 26.4, 22.7. Her EKG showed deep T-wave inversions in lead 1, aVL, V3-v6. She was seen in consultation by Cardiology. She underwent echocardiogram which showed ventricular hypertrophy with no wall motion abnormality. However she continues to have chest pain and EKG changes despite control of her blood pressure. For this reason the decision was made to transfer her to [facility] for diagnostic angiogram and further management. Uncontrolled hypertension-blood pressure was initially in the 200s. She was started on beta-salena and lisinopril and her blood pressure improved significantly. She continues to have chest pain despite improvement of her blood pressure. She is being transferred to [facility] for further management. Time Spent with Patient Time attestation: Total time spent providing and/or coordinating discharge services: Discharge coordination time: Greater than 30 minutes Physical Exam Vital Signs: Vital Signs: Last Vital Signs Temp 97.7 F 02/22/21 23:50 Pulse 61 02/23/21 10:57 Resp 18 02/23/21 10:57 BP 116/40 L 02/23/21 10:57 Pulse Ox 95 02/23/21 10:57 Body Mass Index 24.3 Const: Nutritional Appearance: well nourished Orientation/consciousness: patient oriented x3 HENMT: Head: Yes normocephalic and Yes atraumatic Eyes: Sclerae: sclerae normal Chest: Chest palpation & inspection: normal inspection of the chest Resp: Effort & Inspection: normal respiratory effort and no respiratory distress Cardio: Rate: regular rate Rhythm: regular rhythm GI: Palpation (GI): Soft to palpation and nontender Neuro: General: patient oriented x3 Cranial nerves: Yes CN's II-XII intact bilaterally and Yes Bilaterally intact EOM present Extrem: General: Yes normal to inspection DS: Data Data Completed and Pending Labs on day of discharge: Laboratory Results - last 24 hr 02/22/21 02/22/21 02/22/21 12:15 12:15 13:03 WBC RBC Hgb Hct MCV MCH MCHC RDW Plt Count MPV Immature Gran % (Auto) Neut % (Auto) Lymph % (Auto) [place] % (Auto) Eos % (Auto) Baso % (Auto) Lymph # (Auto) [place] # (Auto) Eos # (Auto) Baso # (Auto) Abs Immat Gran (auto) Absolute Neuts (auto) Absolute Nucleated RBC Nucleated RBC % (auto) PTT (Heparin Protocol) Sodium 141 Potassium 4.0 Chloride 107 Carbon Dioxide 22 Anion Gap 16 BUN 10 Creatinine 0.84 Estim Creat Clear Calc 42.2 Estimated GFR > 60 Random Glucose 92 Calcium 9.7 Total Bilirubin 0.8 Direct Bilirubin 0.2 AST 23 ALT 13 Alkaline Phosphatase 79 Troponin I High Sens 13.0 Total Protein 7.9 Albumin 4.5 Lipase 45 Urine Color YELLOW Urine Appearance CLEAR Urine pH 7.5 Ur Specific [place] 1.025 Urine Protein 2+ H Urine Glucose (UA) NEG Urine Ketones NEG Urine Blood TRACE Urine Nitrite NEG Ur Leukocyte Esterase NEG Urine RBC 5-9 H Urine WBC 0-2 Ur Squamous Epith Cells 1+ Urine Bacteria NONE COVID-19 (ELAINE) COVID-19 Clin Com 02/22/21 02/22/21 02/23/21 15:41 19:28 00:30 WBC RBC Hgb Hct MCV MCH MCHC RDW Plt Count MPV Immature Gran % (Auto) Neut % (Auto) Lymph % (Auto) [place] % (Auto) Eos % (Auto) Baso % (Auto) Lymph # (Auto) [place] # (Auto) Eos # (Auto) Baso # (Auto) Abs Immat Gran (auto) Absolute Neuts (auto) Absolute Nucleated RBC Nucleated RBC % (auto) PTT (Heparin Protocol) Sodium Potassium Chloride Carbon Dioxide Anion Gap BUN Creatinine Estim Creat Clear Calc Estimated GFR Random Glucose Calcium Total Bilirubin Direct Bilirubin AST ALT Alkaline Phosphatase Troponin I High Sens 21.6 H D 26.4 H 22.7 H Total Protein Albumin Lipase Urine Color Urine Appearance Urine pH Ur Specific [place] Urine Protein Urine Glucose (UA) Urine Ketones Urine Blood Urine Nitrite Ur Leukocyte Esterase Urine RBC Urine WBC Ur Squamous Epith Cells Urine Bacteria COVID-19 (ELAINE) COVID-19 Clin Com 02/23/21 02/23/21 02/23/21 05:04 07:47 07:47 WBC 9.5 RBC 4.91 Hgb 13.4 Hct 41.2 MCV 83.9 MCH 27.3 MCHC 32.5 RDW 15.7 Plt Count 177 MPV 10.5 Immature Gran % (Auto) 0.5 H Neut % (Auto) 71.2 Lymph % (Auto) 20.5 [place] % (Auto) 3.7 Eos % (Auto) 3.9 Baso % (Auto) 0.2 Lymph # (Auto) 1.9 [place] # (Auto) 0.4 Eos # (Auto) 0.4 Baso # (Auto) 0.0 Abs Immat Gran (auto) 0.05 H Absolute Neuts (auto) 6.7 Absolute Nucleated RBC 0.000 Nucleated RBC % (auto) 0.0 PTT (Heparin Protocol) Sodium 136 Potassium 4.4 Chloride 105 Carbon Dioxide 19 L Anion Gap 16 BUN 8 L Creatinine 0.84 Estim Creat Clear Calc 42.2 Estimated GFR > 60 Random Glucose 121 H Calcium 9.5 Total Bilirubin Direct Bilirubin AST ALT Alkaline Phosphatase Troponin I High Sens Total Protein Albumin Lipase Urine Color Urine Appearance Urine pH Ur Specific [place] Urine Protein Urine Glucose (UA) Urine Ketones Urine Blood Urine Nitrite Ur Leukocyte Esterase Urine RBC Urine WBC Ur Squamous Epith Cells Urine Bacteria COVID-19 (ELAINE) Negative COVID-19 Clin Com See Note 02/23/21 07:47 WBC RBC Hgb Hct MCV MCH MCHC RDW Plt Count MPV Immature Gran % (Auto) Neut % (Auto) Lymph % (Auto) [place] % (Auto) Eos % (Auto) Baso % (Auto) Lymph # (Auto) [place] # (Auto) Eos # (Auto) Baso # (Auto) Abs Immat Gran (auto) Absolute Neuts (auto) Absolute Nucleated RBC Nucleated RBC % (auto) PTT (Heparin Protocol) 98.9 H Sodium Potassium Chloride Carbon Dioxide Anion Gap BUN Creatinine Estim Creat Clear Calc Estimated GFR Random Glucose Calcium Total Bilirubin Direct Bilirubin AST ALT Alkaline Phosphatase Troponin I High Sens Total Protein Albumin Lipase Urine Color Urine Appearance Urine pH Ur Specific [place] Urine Protein Urine Glucose (UA) Urine Ketones Urine Blood Urine Nitrite Ur Leukocyte Esterase Urine RBC Urine WBC Ur Squamous Epith Cells Urine Bacteria COVID-19 (ELAINE) COVID-19 Clin Com Discharge Plan Discharge Patient Disposition: Xfer Acute Care Hospital Discharge Diagnosis: NSTEMI, uncontrolled HTN Referrals: Gerardo Teresa MD [Primary Care Provider] - 1 Week Discharge Medications: New atorvastatin 40 mg Tablet 40 mg PO DAILY Qty: 1 RF: 0 lisinopril 10 mg Tablet 10 mg PO DAILY Qty: 1 RF: 0 Nitro-Bid 2 % Ointment 1 inch transdermal RQ6H WHILE AWAKE Qty: 30 RF: 0 metoprolol tartrate [Lopressor] 50 mg tablet 12.5 mg PO DAILY Qty: 1 RF: 0 heparin(porcine) in 0.45% NaCl 25,000 unit/250 mL Parenteral Solution 25,000 unit continuous IV infusion .Q0M Qty: 250 RF: 0 aspirin 81 mg Tablet,Chewable 81 mg PO DAILY Qty: 1 RF: 0 Continued levothyroxine 50 mcg tablet 1 tab PO DAILY RF: 0 oxybutynin chloride 5 mg tablet extended release 24hr 1 tab PO DAILY RF: 0 omeprazole 20 mg capsule,delayed release(DR/EC) 1 cap PO DAILY RF: 0 montelukast 10 mg tablet 1 tab PO DAILY RF: 0 albuterol sulfate 90 mcg/actuation HFA aerosol inhaler 2 puff inhalation Q6H PRN (Reason: wheezing) RF: 0 timolol maleate 0.5 % drops 1 drp QAM RF: 0 fluticasone propionate 50 mcg/actuation spray,suspension 2 spray intranasal DAILY RF: 0 ezetimibe 10 mg tablet 1 tab PO DAILY RF: 0 Discontinued rosuvastatin 40 mg tablet 1 tab PO DAILY RF: 0 Discharge Orders: Discharge Order (Routine); Ordered 02/23/21 Ordered By: Madhavi Santos Activity on Discharge: As tolerated Stand Alone Forms: Patient Portal Discharge page Care Plan Goals: Evaluation of chest pain/management of blood pressure Health Concerns: NSTEMI uncontrolled blood pressure Plan of Treatment: Transfer to [facility] [place] further management of NSTEMI, uncontrolled HTN Assessment: See discharge summary
--- NOTE | 2021-02-23 12:47 | PC.NURSE ---
CALL TO S3 FOR REPORT
--- NOTE | 2021-02-23 13:58 | MHC.CM.PN ---
PATIENT IS AN ACUTE CARE TRANSFER TO [facility] RN AND UNIT AWARE.
[2021-02-23] MEDS: Nitroglycerin 2 % Oint 1 GM Packet 1 INCH TRANSDERMA (15:39)
== END 2021-02-23 16:37 | disposition short-term general hospital (02) | DRG 282 ==
LOC: HO.ED 17:03 → HO.EDOVER 02-23 00:04 → HO.S3 02-23 11:26
PROVIDERS: Nurse Practitioner Family; Admitting Provider Internal Medicine; Emergency Provider Internal Medicine; PCP Internal Medicine; Visit Provider Family Medicine
DX: I21.4 Non-ST elevation (NSTEMI) myocardial infarction (principal); E03.9 Hypothyroidism, unspecified; K21.9 Gastro-esophageal reflux disease without esophagitis; I10 Essential (primary) hypertension; I16.0 Hypertensive urgency; E78.5 Hyperlipidemia, unspecified; Z20.822 Contact with and (suspected) exposure to COVID-19; Z88.2 Allergy status to sulfonamides; J45.909 Unspecified asthma, uncomplicated; Z88.5 Allergy status to narcotic agent; Z79.51 Long term (current) use of inhaled steroids; Z79.82 Long term (current) use of aspirin; Z79.899 Other long term (current) drug therapy; Z79.890 Hormone replacement therapy
CPT/HCPCS: 36415; 71046; 80048; 80076; 81001; 83690; 84484; 85025; 85730; 87635; 93005; 93306; 96374; 96375; 99285; J2270; J2405

== ENCOUNTER → 2021-03-08 14:16 | Outpatient (BNVA) | payer MEDICARE, SELFPAY | PROVIDERS: PCP Internal Medicine; Visit Provider Internal Medicine Cardiovascular Disease | DX: I21.4 Non-ST elevation (NSTEMI) myocardial infarction (principal); I10 Essential (primary) hypertension | CPT/HCPCS: Q3014 ==

== ENCOUNTER → 2021-03-29 12:23 | Outpatient (BNVA) | payer MEDICARE, SELFPAY | PROVIDERS: PCP Internal Medicine; Referring Provider Internal Medicine; Visit Provider Internal Medicine Cardiovascular Disease | DX: I10 Essential (primary) hypertension (principal); R07.9 Chest pain, unspecified | CPT/HCPCS: 99212 ==

== ENCOUNTER 2021-04-11 12:58 | Outpatient (REF) | payer MEDICARE, SELFPAY ==
--- NOTE | ~2021-04-11 | CT_ITS ---
EXAMINATION: CT HEAD WITHOUT CONTRAST CLINICAL INFORMATION: Headache. History of trauma. COMPARISON: Previous head CT October 2019 TECHNIQUE: Contiguous axial imaging was performed from the skull base to vertex without intravenous administration of contrast. This CT examination was performed using dose optimization techniques as appropriate, variously including the following: *Automated exposure control *Adjustment of mA and/or kV according to patient size (this includes techniques or standardized protocols for targeted exams where dose is matched to indication/reason for exam; i.e. extremities or head) *Use of iterative reconstruction technique DLP: 711 mGy-cm FINDINGS: There is no evidence of an extra-axial collection. There is no evidence of intra-axial or extra-axial hemorrhage. The ventricles and extra-axial CSF spaces are appropriate. Zhang-white matter differentiation is normal. No mass, mass effect or infarct is seen. There is soft tissue opacification of the bilateral frontal ethmoid and maxillary sinuses suggestive of sinusitis. Mastoid air cells and middle ears are clear. No skull fracture or bone lesion is seen. CT/CT head/brain wo con IMPRESSION: Sinusitis otherwise unremarkable exam.
== END 2021-04-11 12:59 | disposition home or self-care (01) ==
LOC: HO.CT 12:58
PROVIDERS: Visit Provider Internal Medicine
DX: R51.9 Headache, unspecified (principal); Z91.81 History of falling
CPT/HCPCS: 70450

== ENCOUNTER 2021-09-03 09:25 | Day surgery (SDC) | payer MEDICARE, OTHER, SELFPAY ==
[2021-08-24 14:59] VITALS: BMI 23.5
--- NOTE | 2021-08-30 14:07 | MHC.SHP ---
Pre-Procedural Eval Section A Date of Service: 08/30/21 The patient is an INPATIENT: No Changes since office visit: No Cold of Flu in the past 2 weeks, No New Medical Problems, No Changes in Medication and No Patient answered all questions The History & Physical has been completed within 30 days and I have reviewed it.: Yes Section B Chief Complaint: Cataract Right Eye Allergies: Allergies Allergy/AdvReac Type Severity Reaction Status Date / Time oxycodone [From PERCOCET] Allergy Mild UNKNOWN Verified 08/24/21 14:58 pregabalin [From LYRICA] Allergy Mild UNKNOWN Verified 08/24/21 14:58 Sulfa (Sulfonamide Allergy Unknown HIVES Verified 08/24/21 14:58 Antibiotics) [SULFA(SULFONAMIDE ANTIBIOTICS)] Plan Diagnosis/Plan: Unchanged I have reviewed the history and physical and performed a pertinent physical examination on my patient. No changes have occurred unless specified.
--- NOTE | 2021-08-31 13:52 | HO.ANESPROP2 ---
Documented by User: Belem Barber NP 08/31/21 13:53 HPI - Anesthesia Eval Consult details Narrative: 86yo F for Right Cataract Multifocal with IOL Insertion PCP cleared No previous cataract on file PMFSH Active Problems Active Problems: All Active Problems (Updated 08/28/21 @ 13:13 by Sejal Fay RN) Non-STEMI (non-ST elevated myocardial infarction) (Acute) Uncontrolled hypertension (Acute) Chest pain (Acute) Hypertension (Acute) Past Medical History Medical History Arthritis Asthma Back pain COVID-19 vaccine series completed Depression GERD (gastroesophageal reflux disease) Headache HLD (hyperlipidemia) Hx of chest pain Hypertension Hypothyroid Joint pain Sinusitis Spondylolysis Surgical History Surgical History History of esophagogastroduodenoscopy (EGD) History of hysterectomy History of nasal surgery Hx of cardiac catheterization Hx of colonoscopy Social History Social History (Updated 03/29/21 @ 12:54 by SAMIA Dubois) Are you a primary managed care provider to a significant other at home: No Do you presently have visiting nurse or other home services: No (Her Children are all coming to help) Alcohol intake: never Patient Tobacco Use Status: Former Tobacco user Quit Date: 1999 Tobacco use type: Cigarette Years Smoked: 20 Use of substances other than those prescribed or required for medical reasons: No Have you been hit, kicked, punched, or otherwise hurt by someone within the past year? If so, by whom?: No Advance Directives: Yes Advance Directives Information Provided: No Advance Directives on File: Yes Advance Directives Date on File: 02/23/21 Recently lost weight without trying: No Eating poorly because of decreased appetite: No Nutrition Risks: No Nutritional Risk Patient : No Meds Allergies Allergy/AdvReac Type Severity Reaction Status Date / Time oxycodone [From PERCOCET] Allergy Mild UNKNOWN Verified 09/03/21 11:13 pregabalin [From LYRICA] Allergy Mild UNKNOWN Verified 09/03/21 11:13 Sulfa (Sulfonamide Allergy Unknown HIVES Verified 09/03/21 11:13 Antibiotics) [SULFA(SULFONAMIDE ANTIBIOTICS)] Home Medications Medication Instructions Recorded Confirmed Last Taken Type albuterol sulfate 90 mcg/actuation 2 puff INHALATION Q6H PRN 02/23/21 08/24/21 02/22/21 History aerosol inhaler ezetimibe 10 mg tablet 1 tab PO DAILY 02/23/21 08/24/21 02/22/21 History fluticasone propionate 50 2 spray INTRANASAL DAILY 02/23/21 08/24/21 02/22/21 History mcg/actuation nasal spray,suspension levothyroxine 50 mcg tablet 1 tab PO DAILY 02/23/21 08/24/21 02/22/21 History montelukast 10 mg tablet 1 tab PO DAILY 02/23/21 08/24/21 02/22/21 History omeprazole 20 mg capsule,delayed 1 cap PO DAILY 02/23/21 08/24/21 02/22/21 History release oxybutynin chloride 5 mg 1 tab PO DAILY 02/23/21 08/24/21 02/22/21 History tablet,extended release 24 hr timolol maleate 0.5 % eye drops 1 drp QAM 02/23/21 08/24/21 02/22/21 History hydrocodone 5 mg-acetaminophen 325 1 tab PO QID PRN 03/08/21 08/24/21 Unknown History mg tablet metoprolol succinate 25 mg 12.5 mg PO DAILY 03/08/21 08/24/21 Unknown History tablet,extended release 24 hr Exam Exam Date and Time: August 31, 2021 1352 Height,Weight and Vital Signs: Height 5 ft 4.5 in Weight 63.049 kg Narrative Narrative: Cardiac cath 02/2021 negative for significant CAD Assessment and Plan Assessment Anesthesia Assessment: Chart Reviewed Documented by User: Sudheer Cruz MD 09/03/21 11:43 [facility] Past Medical History Medical History Arthritis Asthma Back pain COVID-19 vaccine series completed Depression GERD (gastroesophageal reflux disease) Headache HLD (hyperlipidemia) Hx of chest pain Hypertension Hypothyroid Joint pain Sinusitis Spondylolysis Surgical History Surgical History History of esophagogastroduodenoscopy (EGD) History of hysterectomy History of nasal surgery Hx of cardiac catheterization Hx of colonoscopy Social History Social History (Updated 03/29/21 @ 12:54 by SAMIA Dubois) Are you a primary managed care provider to a significant other at home: No Do you presently have visiting nurse or other home services: No (Her Children are all coming to help) Alcohol intake: never Patient Tobacco Use Status: Former Tobacco user Quit Date: 1999 Tobacco use type: Cigarette Years Smoked: 20 Use of substances other than those prescribed or required for medical reasons: No Have you been hit, kicked, punched, or otherwise hurt by someone within the past year? If so, by whom?: No Advance Directives: Yes Advance Directives Information Provided: No Advance Directives on File: Yes Advance Directives Date on File: 02/23/21 Recently lost weight without trying: No Eating poorly because of decreased appetite: No Nutrition Risks: No Nutritional Risk Patient : No Meds Allergies Allergy/AdvReac Type Severity Reaction Status Date / Time oxycodone [From PERCOCET] Allergy Mild UNKNOWN Verified 09/03/21 11:13 pregabalin [From LYRICA] Allergy Mild UNKNOWN Verified 09/03/21 11:13 Sulfa (Sulfonamide Allergy Unknown HIVES Verified 09/03/21 11:13 Antibiotics) [SULFA(SULFONAMIDE ANTIBIOTICS)] Home Medications Medication Instructions Recorded Confirmed Last Taken Type albuterol sulfate 90 mcg/actuation 2 puff INHALATION Q6H PRN 02/23/21 08/24/21 02/22/21 History aerosol inhaler ezetimibe 10 mg tablet 1 tab PO DAILY 02/23/21 08/24/21 02/22/21 History fluticasone propionate 50 2 spray INTRANASAL DAILY 02/23/21 08/24/21 02/22/21 History mcg/actuation nasal spray,suspension levothyroxine 50 mcg tablet 1 tab PO DAILY 02/23/21 08/24/21 02/22/21 History montelukast 10 mg tablet 1 tab PO DAILY 02/23/21 08/24/21 02/22/21 History omeprazole 20 mg capsule,delayed 1 cap PO DAILY 04/08/24/21 02/22/21 History release oxybutynin chloride 5 mg 1 tab PO DAILY 02/23/21 08/24/21 02/22/21 History tablet,extended release 24 hr timolol maleate 0.5 % eye drops 1 drp QAM 02/23/21 08/24/21 02/22/21 History hydrocodone 5 mg-acetaminophen 325 1 tab PO QID PRN 03/08/21 08/24/21 Unknown History mg tablet metoprolol succinate 25 mg 12.5 mg PO DAILY 03/08/21 08/24/21 Unknown History tablet,extended release 24 hr Exam Airway Mallampati Class: II TM Dist: >3cm Neck ROM: Full Denture: Upper Partial: Lower
[2021-09-03 11:13] VITALS: BP 158/69; PULSE 68; RESP 16; TEMP 36.4; O2SAT 97
[2021-09-03] MEDS: Tetracaine HCl/PF 0.5% Oph Sol 4 ML DROPS 1 DROP EYE-RIGHT (11:20)
[2021-09-03] MEDS: Lactated Ringers 500 ML 50 ML IV (11:22)
[2021-09-03] MEDS: Tropicamide 1 % Ophth Sol 3 ML BTL 1 DROP EYE-RIGHT ×3 (11:23→11:32)
[2021-09-03] MEDS: Phenylephrine HCL 2.5% Oph SoL 2 ML BOTTLE 1 DROP EYE-RIGHT ×3 (11:25→11:34)
--- NOTE | 2021-09-03 12:44 | HO.PNOPHT ---
Ophthalmology Procedure Procedure Date of Service: 09/03/21 Ophthalmology Viscoelastic: Healmat Archert Dual Pack Pro Ophthalmology Lenses: [id number] (20) Procedure Notes: PREOPERATIVE DIAGNOSIS: Decreased visual acuity right eye secondary to cataract POSTOPERATIVE DIAGNOSIS: Same PROCEDURE: Right cataract extraction with intraocular lens insertion SURGEON: Desmond Francis M.D. ANESTHESIA: Topical/MAC ESTIMATED BLOOD LOSS: None COMPLICATIONS: None After obtaining informed consent, the patient was brought to the operating room suite and placed in the supine position. After adequate sedation per anesthesia, topical drops of Tetracaine were given to the right eye. The eye was then prepped and draped in the usual sterile fashion. The operating room microscope was then positioned over the operative eye and a lid speculum placed. A paracentesis was created. Viscoelastic was then instilled into the anterior chamber. A three plane incision was then created temporally, utilizing a 2.85 mm keratome. Capsulotomy forceps were then utilized to create a circular tear capsulotomy. Hydrodissection and hydrodelineation were carried out until adequate mobilization of the nucleus occurred. Phacoemulsification was then utilized to remove the dense central nucleus followed by removal of the cortical material utilizing the automated aspiration irrigation unit. Viscoelastic was instilled into the posterior capsular bag followed by placement of a posterior chamber intraocular lens without difficulty. The residual Viscoelastic was then removed utilizing the automated IA machine. The wound was checked and found to be watertight. The patient tolerated the procedure well and the lid speculum was removed. Intracameral injection of Vigamox 0.1 mL followed by a subtenon injection of Kenalog-40 0.2 mL were administered. The patient will be seen in the a.m.
[2021-09-03 13:10] VITALS: BP 145/66; PULSE 67; RESP 16; TEMP 36; O2SAT 98
== END 2021-09-03 13:25 ==
LOC: HO.SSS 09:25
PROVIDERS: PCP Internal Medicine; Visit Provider Ophthalmology
PROC: (CPT 66985; principal; 2021-09-03 12:30)
DX: H25.11 Age-related nuclear cataract, right eye (principal); H54.7 Unspecified visual loss; I10 Essential (primary) hypertension; E03.9 Hypothyroidism, unspecified; J45.909 Unspecified asthma, uncomplicated; E78.5 Hyperlipidemia, unspecified; Z79.51 Long term (current) use of inhaled steroids; Z79.899 Other long term (current) drug therapy; Z88.2 Allergy status to sulfonamides; Z88.8 Allergy status to other drugs, medicaments and biological substances; Z87.891 Personal history of nicotine dependence
CPT/HCPCS: 66984; J2250; J3010; J3300; V2632

== ENCOUNTER 2023-11-26 11:55 | Inpatient (IN) | payer MEDICARE, OTHER, SELFPAY ==
--- NOTE | ~2023-11-26 | CT_ITS ---
EXAMINATION: CT HEAD WITHOUT CONTRAST CLINICAL INFORMATION: Headaches. Hypertension. COMPARISON: 04/11/2021 TECHNIQUE: Contiguous axial imaging was performed from the skull base to vertex without intravenous administration of contrast. This CT examination was performed using dose optimization techniques as appropriate, variously including the following: *Automated exposure control *Adjustment of mA and/or kV according to patient size (this includes techniques or standardized protocols for targeted exams where dose is matched to indication/reason for exam; i.e. extremities or head) *Use of iterative reconstruction technique DLP: 714 mGy-cm FINDINGS: There is prominence to the sulci and ventricles with moderate deep white matter gliosis. Bilateral basal ganglia calcification noted. No evidence though for intra or extra-axial fluid collection, hemorrhage, mass, or mass effect. There is mucoperiosteal thickening in the left maxillary sinus as well as the sinuses and right frontal sinus. No significant change. The calvarium is intact. There is atherosclerotic calcification in the carotid siphons. CT/CT head/brain wo IV con IMPRESSION: No acute intracranial pathology.
--- NOTE | ~2023-11-26 | XR_ITS ---
EXAMINATION: XR CHEST CLINICAL INFORMATION: Chest pain COMPARISON: 02/22/2021 TECHNIQUE: Frontal view of the chest was obtained. FINDINGS: Heart borderline size with normal caliber pulmonary vessels in the lungs are clear. There is degenerative change in both shoulder joints. XR/XR chest 1V IMPRESSION: No active disease.
[2023-11-26 12:10] VITALS: BP 240/108; PULSE 85; RESP 18; TEMP 36.8; O2SAT 97; BMI 24.6
--- NOTE | 2023-11-26 12:10 | ED_ITS ---
HPI - General Adult General Chief complaint: General Medical Stated complaint: Referred by PCP - high BP Time Seen by Provider: 11/26/23 16:06 Source: patient, family, RN notes reviewed and old records reviewed Mode of arrival: ambulatory Limitations: no limitations History of Present Illness HPI narrative: 88-year-old female with past medical history significant for hypertension, GERD, presents for evaluation of high blood pressure. Patient went to her PCP this afternoon for routine checkup. She does state that she has been ?feeling off since around Thanksgiving. ? 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 Related Data Home Medications Medication Instructions Recorded Confirmed ezetimibe 10 mg tablet 1 tab PO DAILY 02/23/21 11/26/23 fluticasone propionate 50 2 spray intranasal DAILY 02/23/21 11/26/23 mcg/actuation nasal spray,suspension levothyroxine 50 mcg tablet 1 tab PO DAILY 02/23/21 11/26/23 montelukast 10 mg tablet 1 tab PO DAILY 02/23/21 11/26/23 omeprazole 20 mg capsule,delayed 1 cap PO DAILY 02/23/21 11/26/23 release timolol maleate 0.5 % eye drops 1 drp ophthalmic-Left QAM 02/23/21 11/26/23 hydrocodone 5 mg-acetaminophen 325 1 tab PO QID PRN Pain 03/08/21 11/26/23 mg tablet calcium carbonate 500 mg-vitamin 1 tab PO DAILY 11/26/23 11/26/23 D3 10 mcg (400 unit) tablet (Calcium 500 + D) cholecalciferol (vitamin D3) 50 50 mcg PO DAILY 11/26/23 11/26/23 mcg (2,000 unit) capsule (Vitamin D3) diphenhydramine HCl 50 mg capsule 50 mg PO DAILY PRN Itching 11/26/23 11/26/23 (Banophen) fluticasone fur. 200 mcg-umeclid 1 ea inhalation DAILY 11/26/23 11/26/23 62.5 mcg-vilant 25 mcg inhalat.powder (Trelegy Ellipta) losartan 100 mg tablet 100 mg PO DAILY 11/26/23 11/26/23 tcysweboeeaks-oejtgdmmgnbdz-pdhguqwbfvc 2 tab PO Q4-6H PRN Sinus Symptoms 11/26/23 11/26/23 5 mg-325 mg-200 mg tablet (Severe Sinus) Allergies Allergy/AdvReac Type Severity Reaction Status Date / Time oxycodone [From PERCOCET] Allergy Mild UNKNOWN Verified 11/26/23 12:09 pregabalin [From LYRICA] Allergy Mild UNKNOWN Verified 11/26/23 12:09 Sulfa (Sulfonamide Allergy Unknown HIVES Verified 11/26/23 12:10 Antibiotics) [SULFA(SULFONAMIDE ANTIBIOTICS)] Review of Systems 2 Constitutional: Constitutional: Denies chills, Denies fever(s) and Reports headache(s) Eyes: Eyes: Denies blurry vision ENT: Denies vertigo, Denies dizziness and Reports headache(s) Cardiovascular: Cardiovascular: Reports chest pain and Denies dyspnea Respiratory: Respiratory: Denies cough and Denies dyspnea Gastrointestinal: Gastrointestinal: Denies abdominal pain, Reports nausea and Denies vomiting Musculoskeletal: Musculoskeletal: Denies back pain Integumentary/Breasts: Skin/Breast: Denies rash Neurologic: Denies vertigo, Denies dizziness and Reports headache(s) [facility] Past Medical History Medical History (Updated 11/26/23 @ 18:39 by Juan Francisco Moore) Sinusitis Joint pain Depression COVID-19 vaccine series completed Hx of chest pain Back pain Headache Hypertension Spondylolysis Arthritis Asthma Hypothyroid HLD (hyperlipidemia) GERD (gastroesophageal reflux disease) Surgical History Hx of cardiac catheterization History of nasal surgery History of esophagogastroduodenoscopy (EGD) Hx of colonoscopy History of hysterectomy Social History Social History (Updated 03/29/21 @ 12:54 by SAMIA Dubois) Are you a primary respiratory care program director to a significant other at home: No Do you presently have visiting nurse or other home services: No (Her Children are all coming to help) Alcohol intake: never Patient Tobacco Use Status: Former Tobacco user Quit Date: 1999 Tobacco use type: Cigarette Years Smoked: 20 Smoked in Last 30 Days: No Use of substances other than those prescribed or required for medical reasons: No Advance Directives: Yes Advance Directives on File: Yes Advance Directives Date on File: 02/23/21 Physical Exam ED Vital Signs: Vital Signs - 24 hr 11/26/23 12:10 11/26/23 14:08 11/26/23 17:30 Temperature 98.2 F 98.1 F 98.5 F Pulse Rate 85 76 69 Respiratory Rate 18 16 16 Blood Pressure 240/108 H 233/83 H 223/78 H Pulse Oximetry 97 98 97 Oxygen Delivery Method Room Air Room Air BMI result Body Mass Index 24.6 Const General: healthy appearing, comfortable, no acute distress, alert and awake Nutritional Appearance: well nourished Orientation/consciousness: patient oriented x3 HENMT Head: Yes normocephalic and Yes atraumatic Eyes Eyelids: Yes eyelids normal Conjunctivae: conjunctivae normal Sclerae: sclerae normal Corneas: corneas normal Pupils: Equal, round and reactive pupils present EOM: EOMs intact bilaterally Neck Neck: Yes full ROM Resp Effort & Inspection: normal respiratory effort, able to speak in complete sentences and not labored Cardio Rate: regular rate Rhythm: regular rhythm GI Inspection: No distended Palpation (GI): Soft to palpation, not firm, nontender, no guarding and not rigid Skin General skin exam: elasticity normal Neuro General: patient oriented x3 Cranial nerves: Yes CN's II-XII intact bilaterally, Yes Equal, round and reactive pupils present and Yes Bilaterally intact EOM present Cognition (Neuro): normal cognition Extrem Other: Moving all extremities well without any obvious deformities Course Course Course Narrative: RME: 88 year-old F w/ PMHx HTN, asthma, fibromyalgia, GERD, HLD, hypothyroid, IBS, presenting to the ED c/o sent in by PCP for HTN 228/111 w/intermittent FOWLER since Thanksgiving & chest pain. Takes Losartan but was taken off Amlodipine ?1yr ago. denies taking AC HTNsive 240/108 in triage EKG, Labs Full HPI, ROS and PE to be performed by primary ED provider. Reevaluation(s) Reevaluation #1: Patient's blood pressure after receiving labetalol 10 mg IV is 223/78. She was given a 2nd dose of labetalol. Time: 17:32 Medications Administered Discontinued Medications Generic Name Dose Route Start Last Admin Trade Name Caitlin PRN Reason Stop Dose Admin Labetalol HCl 10 mg 11/26/23 16:37 11/26/23 16:55 Labetalol Hcl 100 Mg/20 Ml Vial IVPUSH 11/26/23 16:38 10 mg ONCE ONE Administration Labetalol HCl 20 mg 11/26/23 17:31 11/26/23 17:56 Labetalol Hcl 100 Mg/20 Ml Vial IVPUSH 11/26/23 17:32 20 mg ONCE ONE Administration Medical Decision Making Medical Decision Making [facility] Narrative: 88-year-old female presents for evaluation of elevated blood pressure. On arrival to the ED today, the patient's blood pressure was elevated to 240/108. I cycled the blood pressure when I arrived was 236/119. She has some vague complaints but not currently having any chest pain. Her EKG is nonischemic, redness troponin was 14 with a repeat 22 which is likely elevated due to the degree of hypertension she was experiencing. Patient only takes losartan 100 mg daily. Will give her a dose of labetalol. Anticipate transfer of care to the medical service for admission of hypertensive emergency. Differential Diagnosis Differential Diagnoses: The differential diagnosis associated with the presentation includes Uncontrolled hypertension Hypertensive urgency Hypertensive emergency Acute headache Medication noncompliance Admission/Observation Consideration of admission/observation: Escalation of care including admission/observation considered Lab Data [facility] Lab Attestation statement: I reviewed the patient's lab results. No leukocytosis or anemia. No electrolyte abnormalities. Normal renal function. Initial troponin of 14.6 and a repeat of 22.6. This is likely due to hypertensive crisis and not likely related to acute ischemic event 11/26/23 12:28 11/26/23 12:28 Labs: Lab Results 11/26/23 11/26/23 11/26/23 Range/Units 12:28 15:40 18:03 WBC 9.6 (4.8-10.8) X10*3/uL RBC 5.03 (4.20-5.50) X10*6/uL Hgb 14.0 (12.0-16.0) g/dl Hct 42.7 (37.0-47.0) % MCV 84.9 (80.0-98.0) fL MCH 27.8 (27.0-33.0) pg MCHC 32.8 (31.0-35.0) g/dl RDW 15.5 (11.0-16.0) % Plt Count 164 (160-400) X10*3/uL MPV 10.7 (9.4-12.3) fL Immature Gran % (Auto) 0.5 H (0.0-0.4) % Neut % (Auto) 76.8 H (45-73) % Lymph % (Auto) 16.7 L (20-40) % [place] % (Auto) 4.2 (2-11) % Eos % (Auto) 1.5 (0-4) % Baso % (Auto) 0.3 (0-2) % Lymph # (Auto) 1.6 (1.2-4.9) X10*3/uL [place] # (Auto) 0.4 (0.1-1.2) X10*3/uL Eos # (Auto) 0.1 (0.0-0.4) X10*3/uL Baso # (Auto) 0.0 (0.0-0.2) X10*3/uL Abs Immat Gran (auto) 0.05 H (0.00-0.03) X10*3/uL Absolute Neuts (auto) 7.4 (2.0-8.3) x10*3/uL Absolute Nucleated RBC 0.000 (0.0-0.012) X10*3/uL Nucleated RBC % (auto) 0.0 (0.0-0.2) /100WBC PT 12.3 (11.1-13.3) SEC INR 1.0 (0.9-1.1) Sodium 140 (135-145) mmol/L Potassium 3.7 (3.3-5.1) mmol/L Chloride 107 (96-108) mmol/L Carbon Dioxide 21 L (22-29) mmol/L Anion Gap 16 (12-20) BUN 8 L (9-16) mg/dL Creatinine 0.86 (0.5-1.4) mg/dL Estim Creat Clear Calc 39.0 Estimated GFR > 60 Random Glucose 98 (60-115) mg/dL Calcium 10.4 H D (8.4-10.2) mg/dL Magnesium 1.9 (1.6-2.6) mg/dL Total Bilirubin 0.8 (0.0-1.0) mg/dL Direct Bilirubin 0.3 (0.0-0.5) mg/dL AST 24 (5-31) U/L ALT 15 (0-31) U/L Alkaline Phosphatase 64 (39-117) U/L Troponin I High Sens 14.6 22.6 H D (<3.5-17.0) ng/L Total Protein 8.1 H (6.5-8.0) g/dL Albumin 4.3 (3.5-5.0) g/dL Urine Color Yellow Urine Appearance Clear Urine pH 7.0 (5.0-9.0) Ur Specific [place] 1.010 (1.005-1.025) Urine Protein 30 (1+) H (Neg-Trace) mg/dL Urine Glucose (UA) Negative (Negative) mg/dL Urine Ketones Negative (Negative) mg/dL Urine Blood Negative (Negative) Urine Nitrite Negative (Negative) Ur Leukocyte Esterase Trace H (Negative) Independent Interpretation I performed an independent interpretation of an: EKG Discharge Plan Discharge Clinical Impression: Uncontrolled hypertension Patient Disposition: Admitted As Inpatient Prescriptions: No Action levothyroxine 50 mcg tablet 1 tab PO DAILY omeprazole 20 mg capsule,delayed release(DR/EC) 1 cap PO DAILY montelukast 10 mg tablet 1 tab PO DAILY timolol maleate 0.5 % drops 1 drp ophthalmic-Left QAM fluticasone propionate 50 mcg/actuation spray,suspension 2 spray intranasal DAILY ezetimibe 10 mg tablet 1 tab PO DAILY Trelegy Ellipta 200-62.5-25 mcg blister with device 1 ea inhalation DAILY diphenhydramine HCl [Banophen] 50 mg Capsule 50 mg PO DAILY PRN (Reason: Itching) Severe Sinus 5-325-200 mg Tablet 2 tab PO Q4-6H PRN (Reason: Sinus Symptoms) losartan 100 mg tablet 100 mg PO DAILY calcium carbonate-vitamin D3 [Calcium 500 + D] 500 mg-10 mcg (400 unit) Tablet 1 tab PO DAILY cholecalciferol (vitamin D3) [Vitamin D3] 50 mcg (2,000 unit) Capsule 50 mcg PO DAILY hydrocodone-acetaminophen 5-325 mg tablet 1 tab PO QID PRN (Reason: Pain)
--- NOTE | 2023-11-26 12:13 | ECG_ITS ---
Test Reason : htn Blood Pressure : / mmHG Vent. Rate : 084 BPM Atrial Rate : 084 BPM P-R Int : 172 ms QRS Dur : 082 ms QT Int : 392 ms P-R-T Axes : 028 -23 117 degrees QTc Int : 463 ms Normal sinus rhythm Possible Left atrial enlargement Left ventricular hypertrophy with repolarization abnormality ( R in aVL , Sokolow-Olivares , [place] product , Romhilt-Parikh ) Abnormal ECG When compared with ECG of 23-FEB-2021 12:01, Premature atrial complexes are no longer Present Vent. rate has increased BY 29 BPM T wave inversion no longer evident in Inferior leads T wave inversion no longer evident in Anterior leads Referred By: Julia Pratt Electronically Signed By:Shen Foley
[2023-11-26 12:35] LABS: MANUAL DIFF FLAG NO
[2023-11-26 12:38] LABS: Basophils Percent Auto 0.3 % (0-2); Eosinophils Absolute Auto 0.1 X10*3/uL (0.0-0.4); Eosinophils Percent Auto 1.5 % (0-4); Hematocrit 42.7 % (37.0-47.0); Imm Gran Abs Auto 0.05 X10*3/uL (0.00-0.03); Imm Gran Pct Auto 0.5 % (0.0-0.4); Lymphocytes Absolute Auto 1.6 X10*3/uL (1.2-4.9); Lymphocytes Percent Auto 16.7 % (20-40); Mean Corpuscular HGB Conc 32.8 g/dl (31.0-35.0); Mean Corpuscular Hemoglobin 27.8 pg (27.0-33.0); Mean Corpuscular Volume 84.9 fL (80.0-98.0); Mean Platelet Volume 10.7 fL (9.4-12.3); Monocytes Absolute Auto 0.4 X10*3/uL (0.1-1.2); Monocytes Percent Auto 4.2 % (2-11); Neutrophils Absolute Auto 7.4 x10*3/uL (2.0-8.3); Neutrophils Percent Auto 76.8 % (45-73); Platelet Count 164 X10*3/uL (160-400); Red Blood Count 5.03 X10*6/uL (4.20-5.50); Red Cell Distribution Width 15.5 % (11.0-16.0); White Blood Count 9.6 X10*3/uL (4.8-10.8)
[2023-11-26 12:45] LABS: Prothrombin Time 12.3 SEC (11.1-13.3)
[2023-11-26 13:05] LABS: Alanine Aminotransferase 15 U/L (0-31); Albumin Level 4.3 g/dL (3.5-5.0); Alkaline Phosphatase 64 U/L (39-117); Anion Gap 16 (12-20); Aspartate Amino Transferase 24 U/L (5-31); Bilirubin Direct 0.3 mg/dL (0.0-0.5); Bilirubin Total 0.8 mg/dL (0.0-1.0); Blood Urea Nitrogen 8 mg/dL (9-16); Calcium 10.4 mg/dL (8.4-10.2); Carbon Dioxide 21 mmol/L (22-29); Chloride 107 mmol/L (96-108); Estimated Glomerular Filt Rate > 60; Glucose Random 98 mg/dL (60-115); Magnesium 1.9 mg/dL (1.6-2.6); Potassium 3.7 mmol/L (3.3-5.1); Sodium 140 mmol/L (135-145); Total Protein 8.1 g/dL (6.5-8.0)
[2023-11-26 13:08] LABS: Troponin-I High Sensitivity 14.6 ng/L (<3.5-17.0)
[2023-11-26 14:08] VITALS: BP 233/83; PULSE 76; RESP 16; TEMP 36.7; O2SAT 98
[2023-11-26 16:25] LABS: Troponin-I High Sensitivity 22.6 ng/L (<3.5-17.0)
[2023-11-26] MEDS: Labetalol HCL 100 MG/20 ML VIAL 10 MG IVPUSH (16:55)
--- NOTE | 2023-11-26 16:55 | PC.NURSE ---
medication administered per provider. will reassess BP shortly.
[2023-11-26 17:30] VITALS: BP 223/78; PULSE 69; RESP 16; TEMP 36.9; O2SAT 97
--- NOTE | 2023-11-26 17:32 | PC.NURSE ---
pt remains hypertensive at this time despite medication administration. will reassess. pt's son bedside for support. respirations remain even and unlabored. call hutton placed within reach.
[2023-11-26] MEDS: Labetalol HCL 100 MG/20 ML VIAL 20 MG IVPUSH (17:56)
--- NOTE | 2023-11-26 17:56 | PHA.MEDREC ---
Pharmacy Consult ? Medication Reconciliation Pharmacy has completed the medication reconciliation. Confirmed patient medications from list by provider, claim history, and patient. Patient wasn't confident on blood pressure medication. Providers list had amlodipine and losartan but only losartan was being filled. Cathy Hassan CPht
--- NOTE | 2023-11-26 17:59 | PC.NURSE ---
medication administered per provider order.
[2023-11-26 18:22] LABS: Appearance Urine Clear; Color Urine Yellow; Glucose Urine UA Negative (Negative); Leukocyte Esterase Urine Trace (Negative); Nitrite Urine Negative (Negative); UMIC TRIGGER UACC YES; Urine Blood Negative (Negative); Urine Ketones Negative (Negative); Urine Protein 30 (1+) mg/dL (Neg-Trace)
[2023-11-26 18:38] VITALS: BP 181/72; PULSE 58; RESP 18; TEMP 36.8; O2SAT 97
[2023-11-26 18:56] LABS: Bacteria Urine None Seen (None Seen); Hyaline Casts Urine 0-2 /LPF (0-2); RBC Urine 0-2 /HPF (0-2); Squamous Epithelial Cell Urine 0-2 /HPF (0-2); WBC Urine 0-5 /HPF (0-5)
[2023-11-26 19:40] VITALS: BP 164/64; PULSE 57; RESP 16; TEMP 36.7; O2SAT 97
--- NOTE | 2023-11-26 20:26 | P.HPHOSP_ITS ---
History of Present Illness Date of Service: 11/26/23 Attending physician on admission: Eddie Matt Chief Complaint: Headache Alejandra Guzman is 88 years old woman with past medical history significant for essential hypertension and hyperlipidemia presents to the emergency department complaining of multiple symptoms including generalized headache, chest pain and abdominal pain. She denied nausea, vomiting, diarrhea, diaphoresis, fevers chills. She denies shortness of breath. She does complain of chronic back pain. She denies any dizziness or palpitations. She denies any acute urinary symptoms. She denies swelling to the lower extremities. She denied alcohol abuse, tobacco smoking or illicit drug use. In the ED, she was initially found to have a blood pressure of 240/108. Her most recent blood pressure is 164/64 after receiving treatment with labetalol IV. Blood workup showed no leukocytosis. Troponin slightly elevated. Head CT scan without contrast showed no acute intracranial abnormality. CXR is negative. ECG showed normal sinus rhythm with a heart rate 84 beats per minute and LVH changes with the obvious acute ischemia. ED tx: A total 30 mg Labetalol IV. Review of Systems 2 Review of Systems: All 12 systems were reviewed and normal except as noted in HPI. [facility] Medical History (Updated 11/26/23 @ 18:39 by Juan Francisco Moore) Sinusitis Joint pain Depression COVID-19 vaccine series completed Hx of chest pain Back pain Headache Hypertension Spondylolysis Arthritis Asthma Hypothyroid HLD (hyperlipidemia) GERD (gastroesophageal reflux disease) Surgical History Hx of cardiac catheterization History of nasal surgery History of esophagogastroduodenoscopy (EGD) Hx of colonoscopy History of hysterectomy Social History (Updated 03/29/21 @ 12:54 by SAMIA Dubois) Are you a primary critical care educator to a significant other at home: No Do you presently have visiting nurse or other home services: No (Her Children are all coming to help) Alcohol intake: never Patient Tobacco Use Status: Former Tobacco user Quit Date: 1999 Tobacco use type: Cigarette Years Smoked: 20 Smoked in Last 30 Days: No Use of substances other than those prescribed or required for medical reasons: No Advance Directives: Yes Advance Directives on File: Yes Advance Directives Date on File: 02/23/21 Meds Allergies Allergy/AdvReac Type Severity Reaction Status Date / Time oxycodone [From PERCOCET] Allergy Mild UNKNOWN Verified 11/26/23 12:09 pregabalin [From LYRICA] Allergy Mild UNKNOWN Verified 11/26/23 12:09 Sulfa (Sulfonamide Allergy Unknown HIVES Verified 11/26/23 12:10 Antibiotics) [SULFA(SULFONAMIDE ANTIBIOTICS)] Active Medications: Current Medications Acetaminophen (Acetaminophen 325 Mg Tablet) 975 mg PO Q6H PRN PRN Reason: headache Diphenhydramine HCl (Diphenhydramine Hcl 25 Mg Capsule) 50 mg PO DAILY PRN PRN Reason: Itching Ezetimibe (Ezetimibe 10 Mg Tablet) 10 mg PO DAILY [facility] Fluticasone/Umeclidinium/Vilanterol (Fluticasone/Umeclidinium/Vilanterol 200/62.5/25 Blst.W.Dev) 1 puff INHALE RDAILY [facility] Heparin Sodium (Porcine) (Heparin Sodium,Porcine 5,000 Unit/Ml Vial) 5,000 unit SUBCUT Q12H [facility] Levothyroxine Sodium (Levothyroxine Sodium 50 Mcg Tablet) 50 mcg PO DAILY@0600 [facility] Losartan Potassium (Losartan Potassium 50 Mg Tablet) 100 mg PO DAILY [facility]; Protocol Montelukast Sodium (Montelukast Sodium 10 Mg Tablet) 10 mg PO DAILY [facility] Omeprazole (Omeprazole 20 Mg Capsule.Dr) 20 mg PO DAILY@0630 [facility] Sodium Chloride (0.9 % Sodium Chloride Flush 3 Ml Syringe) 3 ml IVFLUSH QSHIFT [facility] Timolol Maleate (Timolol Maleate 0.5 % Oph Shayy 5 Ml Drbtl) 1 drop EYE-LEFT DAILY [facility] Vitamin D (Cholecalciferol (Vitamin D3) 25 Mcg Tablet) 50 mcg PO DAILY [facility] Home Medications Medication Instructions Recorded Confirmed Last Taken Type ezetimibe 10 mg tablet 1 tab PO DAILY 02/23/21 11/26/23 11/25/23 History fluticasone propionate 50 2 spray intranasal DAILY 02/23/21 11/26/23 11/25/23 History mcg/actuation nasal spray,suspension levothyroxine 50 mcg tablet 1 tab PO DAILY 02/23/21 11/26/23 11/25/23 History montelukast 10 mg tablet 1 tab PO DAILY 02/23/21 11/26/23 11/25/23 History omeprazole 20 mg capsule,delayed 1 cap PO DAILY 02/23/21 11/26/23 11/25/23 History release timolol maleate 0.5 % eye drops 1 drp ophthalmic-Left QAM 02/23/21 11/26/23 11/25/23 History hydrocodone 5 mg-acetaminophen 325 1 tab PO QID PRN Pain 03/08/21 11/26/23 Unknown History mg tablet calcium carbonate 500 mg-vitamin 1 tab PO DAILY 11/26/23 11/26/23 Unknown History D3 10 mcg (400 unit) tablet (Calcium 500 + D) cholecalciferol (vitamin D3) 50 50 mcg PO DAILY 11/26/23 11/26/23 Unknown History mcg (2,000 unit) capsule (Vitamin D3) diphenhydramine HCl 50 mg capsule 50 mg PO DAILY PRN Itching 11/26/23 11/26/23 Unknown History (Banophen) fluticasone fur. 200 mcg-umeclid 1 ea inhalation DAILY 11/26/23 11/26/23 11/25/23 History 62.5 mcg-vilant 25 mcg inhalat.powder (Trelegy Ellipta) losartan 100 mg tablet 100 mg PO DAILY 11/26/23 11/26/23 Unknown History nxyfnfsmsohuv-ttpwopghpgiij-okpfxviwqiq 2 tab PO Q4-6H PRN Sinus Symptoms 11/26/23 11/26/23 Unknown History 5 mg-325 mg-200 mg tablet (Severe Sinus) Physical Exam 2 Vital Signs and Narrative: Vital Signs: Last Vital Signs Temp 98.0 F 11/26/23 19:40 Pulse 57 11/26/23 19:40 Resp 16 11/26/23 19:40 BP 164/64 H 11/26/23 19:40 Pulse Ox 97 11/26/23 19:40 O2 Del Method Room Air 11/26/23 19:40 BMI result Body Mass Index 24.6 Constitutional - Awake and Alert, No apparent distress HEENT - Pupils are equally round. Heart - RRR, normal rate. Respiratory - Normal lung expansion, Normal respiratory effort, No respiratory distress, CTA bilaterally Gastrointestinal - NT / ND; +BS; No rebound or guarding Extremities - no calf tenderness bilaterally, no swelling Musculoskeletal - Normal inspection, normal ROM Skin - Warm/Dry Neurological - Alert & oriented x3, CN II-XII in tact, / strength BUE and BLE Psychological - Appropriate affect. Results Labs 11/26/23 12:28 11/26/23 12:28 Labs: Laboratory Results - last 24 hr 11/26/23 11/26/23 12:28 18:03 MCV 84.9 MCH 27.8 MCHC 32.8 RDW 15.5 Plt Count 164 MPV 10.7 Immature Gran % (Auto) 0.5 H Neut % (Auto) 76.8 H Lymph % (Auto) 16.7 L [place] % (Auto) 4.2 Eos % (Auto) 1.5 Baso % (Auto) 0.3 Lymph # (Auto) 1.6 [place] # (Auto) 0.4 Eos # (Auto) 0.1 Baso # (Auto) 0.0 Abs Immat Gran (auto) 0.05 H Absolute Neuts (auto) 7.4 Absolute Nucleated RBC 0.000 Nucleated RBC % (auto) 0.0 PT 12.3 INR 1.0 Anion Gap 16 Estim Creat Clear Calc 39.0 Estimated GFR > 60 Random Glucose 98 Calcium 10.4 H D Magnesium 1.9 Total Bilirubin 0.8 Direct Bilirubin 0.3 AST 24 ALT 15 Alkaline Phosphatase 64 Total Protein 8.1 H Albumin 4.3 Urine Color Yellow Urine Appearance Clear Urine pH 7.0 Ur Specific [place] 1.010 Urine Protein 30 (1+) H Urine Glucose (UA) Negative Urine Ketones Negative Urine Blood Negative Urine Nitrite Negative Ur Leukocyte Esterase Trace H Urine RBC 0-2 Urine WBC 0-5 Ur Squamous Epith Cells 0-2 Urine Bacteria None Seen Hyaline Casts 0-2 Imaging Radiologist's Impressions: Impressions Chest X-Ray 11/26/23 12:40 IMPRESSION: No active disease. Head CT 11/26/23 13:04 IMPRESSION: No acute intracranial pathology. Assessment and Plan (1) Chest pain: Status: Acute (2) Uncontrolled hypertension: Status: Acute Plan Alejandra Guzman is 88 years old woman admitted with: * Hypertension crisis. improving significantly. Admit to hospitalist service. Telemetry. Start treatment with Norvasc 5 mg p.o. now. Continue losartan Continue to monitor blood pressure closely. * Headache likely secondary to hypertension. Treat with aspirin and Tylenol. * Chest pain. Telemetry. Trend troponin. Start treatment with aspirin 1st dose now. Check echocardiogram. Cardiology consult. * Hyperlipidemia. Continue statin and ezetimibe. * Hypothyroidism. Continue levothyroxine. * DVT prophylaxis: Heparin subcut. Code status: Full. Patient will need hospitalization for at least 2 midnights for hypertensive crisis and chest pain treatment and evaluation. Patient will need close monitoring of the blood pressure as well as chest pain workup with echocardiogram and Cardiology consult for further recommendations. Quality Stroke Does the patient have a stroke diagnosis?: No VTE Prior VTE?: No VTE Risk Level:: Medical - moderate - high VTE Device Contraindication: Treatment Not Indicated VTE Drug Contraindication: N/A - Med Ordered
[2023-11-26] MEDS: Aspirin Enteric Coated 325 MG TABLET.DR PO (21:12)
[2023-11-26] MEDS: amLODIPine Besylate 5 MG TABLET PO (21:12)
--- NOTE | 2023-11-26 21:13 | PC.NURSE ---
pt medicated per mar, pt tolerated well with water. pt reporting 10/10 pain of the lower legs, provider aware, no new orders at this time.
[2023-11-26] MEDS: traMADoL HCL 50 MG TABLET 25 MG PO (22:31)
--- NOTE | 2023-11-26 22:32 | PC.NURSE ---
pt medicated per mar for 10/10 bilateral leg pain.
[2023-11-26 22:58] VITALS: BP 172/66; PULSE 61; RESP 14; TEMP 36.7; O2SAT 97
[2023-11-27] VITALS (9 sets, daily range): BP systolic 133–155; BP diastolic 57–94; PULSE 46–61; RESP 13–18; TEMP 36.1–37; O2SAT 95–98
[2023-11-27] MEDS: 0.9 % Sodium Chloride Flush 3 ML SYRINGE IVFLUSH ×4 (01:25→19:43)
--- NOTE | 2023-11-27 02:21 | PC.NURSE ---
pt sleeping respirations even and unlabored, no acute distress noted.
--- NOTE | 2023-11-27 06:18 | PC.NURSE ---
pt assisted to bathroom at this time, pt ambulated with steady gait.
[2023-11-27] MEDS: Omeprazole 20 MG CAPSULE.DR PO (06:24)
[2023-11-27] MEDS: Levothyroxine Sodium 50 MCG TABLET PO (06:24)
[2023-11-27] MEDS: traMADoL HCL 50 MG TABLET 25 MG PO ×3 (06:28→19:40)
--- NOTE | 2023-11-27 06:29 | PC.NURSE ---
pt medicated per PRN mar for 8/10 head and abdominal pain.
[2023-11-27 06:52] LABS: MANUAL DIFF FLAG NO
--- NOTE | 2023-11-27 07:00 | CA_ITS ---
Transthoracic Echocardiogram Patient (Last, First, Middle): Alejandra Guzman E Gender: Female Date of : 1935 Age: 88 Procedure Date: 11/27/2023 Procedure Type: Transthoracic Echocardiogram Location: S3E Height: 162.56 cm Weight: 64.86 kg BSA: 1.70 m2 Heart Rate: 50 bpm BP: 144 / 58 mmHg Certified Nutritionist: SB Referring MD: dEdie Matt MD Symptoms: chest pain Study Quality: Adequate ECG Rhythm: Bradycardia Conclusions: - Normal left ventricular cavity size. The left ventricular systolic function is hyperdynamic. The visually estimated ejection fraction is >70%. Abnormal diastolic function is noted. Spectral Doppler is indicative of an impaired relaxation filling pattern. Elevated filling pressures. There is severe septal asymmetric hypertrophy. - Normal right ventricular cavity size and systolic function. - The left atrium is mildly dilated. The right atrium is normal in size. - Mild pulmonary hypertension is present. Findings Left Ventricle Normal left ventricular cavity size. The left ventricular systolic function is hyperdynamic. The visually estimated ejection fraction is >70%. Abnormal diastolic function is noted. Spectral Doppler is indicative of an impaired relaxation filling pattern. Elevated filling pressures. There is severe septal asymmetric hypertrophy. Right Ventricle Normal right ventricular cavity size and systolic function. Atria The left atrium is mildly dilated. The right atrium is normal in size. Aortic Valve Normal aortic valve structure and function. There is no aortic valve stenosis. There is no aortic valve regurgitation. Mitral Valve The mitral valve appears normal. There is trace mitral valve regurgitation. There is no mitral valve stenosis. Pulmonic Valve Normal pulmonic valve structure and function. There is trace pulmonic valve regurgitation. Tricuspid Valve Normal tricuspid valve structure. There is mild tricuspid valve regurgitation. The right ventricular systolic pressure is 38 mmHg. Normal right atrial pressure. Mild pulmonary hypertension is present. Great Vessels All visible segments of the aorta are normal in size. The visualized portions of the pulmonary artery and branches are normal. Venous The inferior vena cava is normal in size and collapses greater than 50% with inspiration. Pericardium/Pleural There is no evidence of pericardial effusion. Prior Study Comparison Changes noted compared to prior study dated: 02/23/2021. Severe septal hypertrophy Measurements 2D Linear Measurements IVSd: 1.90 0.6-0.9/0.6-1.0 cm LVIDd: 4.35 3.9-5.3/4.2-5.9 cm LVIDd Index: 2.56 2.4-3.2/2.2-3.1 cm/m2 LVIDs: 2.89 2.0-3.6 cm LVPWd: 0.85 0.7-1.1 cm LA Diam: 4.00 2.7-3.8/3.0-4.0 cm LAIDs Index: 2.35 1.5-2.3 cm/m2 LV Mass: 286.31 67-162/88-224 g LV Mass Index: 168.42 43-95/49-115 g/m2 LVOT Diam: 1.90 3.0+(-)1.3 cm 2D Systolic Function EF 4C: 75.70 >55% EF 2C: 70.50 >55% Mitral Valve MV Pk E: 0.76 MV PK A: 0.94 MV Decel Time: 330.00 E/A: 0.80 E'Lateral: 4.22 E'Medial: 2.51 E/E' Med: 30.20 E/E' Lat: 18.00 PHT: 97.00 MVA PHT: 2.27 Decel Sargent: 2.30 Aortic Valve AoV Pk Portillo: 1.62 AoV Mn Portillo: 1.14 AoV VTI: 0.38 AoV Pk Grad: 10.00 Aov Mn Grad: 6.00 ROXY Cont.VTI: 2.12 LVOT LVOT Pk Portillo: 1.19 LVOT Mn Portillo: 0.74 LVOT VTI: 0.28 LVOT Pk Grad: 6.00 LVOT Mn Grad: 3.00 LVOT Diam: 1.90 LVOT Area: 2.84 Diastolic Function MV Pk E: 0.76 MV Pk A: 0.94 E/A: 0.80 E'Medial: 2.51 E/E' Med: 30.20 E' Laterial: 4.22 E/E' Lat: 18.00 Right Ventricle TAPSE (mm): 19.10 TVS' Portillo: 9.49 Tricuspid Valve TR Pk Portillo: 2.94 TR Pk Grad: 35.00 RA Press: 3.00 RVSP: 38.00 Great Vessels Aorta Sinus of Valsalva: 2.60 2.0-3.5 cm Ao Asc: 3.00 2.1-3.4 cm Pulmonary Veins Pulm Vein S/D 1.40 Pulmonary Valve PV Pk Portillo: 0.77 Peak PV Grad: 2.00 Updated in Other Vendor System with Status of Final Shen Foley MD electronically signed on 11/27/2023 3:57:12 PM with status of Final
[2023-11-27 07:02] LABS: Basophils Percent Auto 0.4 % (0-2); Eosinophils Absolute Auto 0.2 X10*3/uL (0.0-0.4); Eosinophils Percent Auto 2.8 % (0-4); Hematocrit 38.9 % (37.0-47.0); Hemoglobin 13.2 g/dl (12.0-16.0); Imm Gran Abs Auto 0.03 X10*3/uL (0.00-0.03); Imm Gran Pct Auto 0.4 % (0.0-0.4); Lymphocytes Absolute Auto 1.9 X10*3/uL (1.2-4.9); Lymphocytes Percent Auto 23.1 % (20-40); Mean Corpuscular HGB Conc 33.9 g/dl (31.0-35.0); Mean Corpuscular Hemoglobin 28.9 pg (27.0-33.0); Mean Corpuscular Volume 85.1 fL (80.0-98.0); Mean Platelet Volume 11.4 fL (9.4-12.3); Monocytes Absolute Auto 0.5 X10*3/uL (0.1-1.2); Monocytes Percent Auto 5.9 % (2-11); Neutrophils Absolute Auto 5.5 x10*3/uL (2.0-8.3); Neutrophils Percent Auto 67.4 % (45-73); Platelet Count 162 X10*3/uL (160-400); Red Blood Count 4.57 X10*6/uL (4.20-5.50); Red Cell Distribution Width 15.3 % (11.0-16.0); White Blood Count 8.1 X10*3/uL (4.8-10.8)
[2023-11-27 07:13] LABS: Anion Gap 13 (12-20); Blood Urea Nitrogen 10 mg/dL (9-16); Calcium 9.5 mg/dL (8.4-10.2); Carbon Dioxide 23 mmol/L (22-29); Chloride 107 mmol/L (96-108); Creatinine Clr Calc Pharmacy 41.4; Estimated Glomerular Filt Rate > 60; Glucose Random 86 mg/dL (60-115); Potassium 3.6 mmol/L (3.3-5.1); Sodium 139 mmol/L (135-145)
[2023-11-27 07:21] LABS: Troponin-I High Sensitivity 24.5 ng/L (<3.5-17.0)
[2023-11-27] MEDS: Cholecalciferol (Vitamin D3) 25 MCG TABLET 50 MCG PO (10:21)
[2023-11-27] MEDS: Aspirin 81 MG TAB.CHEW PO (10:22)
[2023-11-27] MEDS: Ezetimibe 10 MG TABLET PO (10:22)
[2023-11-27] MEDS: Heparin Sodium,Porcine 5,000 UNIT/ML VIAL 5000 UNIT SUBCUT ×2 (10:22→21:03)
[2023-11-27] MEDS: Losartan Potassium 50 MG TABLET 100 MG PO (10:22)
[2023-11-27] MEDS: Montelukast Sodium 10 MG TABLET PO (10:22)
--- NOTE | 2023-11-27 12:16 | HO.PM.IMPN ---
Subjective Subjective Date of Service: 11/27/23 Interval History: Being followed for elevated blood pressure with symptoms of headache generalized body ache and chronic intermittent diarrhea. At present patient denies headache, no chest pain, complaining of lower abdominal discomfort and loose bowel movement, history of constipation followed by loose stools denies fever, no chills, no weakness no numbness. Review of Systems All other system reviewed and negative. Physical Exam Vital Signs: Vital Signs: Last Vital Signs Temp 98.6 F 11/27/23 11:19 Pulse 58 11/27/23 11:19 Resp 16 11/27/23 11:19 BP 150/66 H 11/27/23 11:19 Pulse Ox 96 11/27/23 11:19 O2 Del Method Room Air 11/27/23 11:19 BMI result Body Mass Index 24.6 Const: Other: General awake alert x3, resting comfortably, in no acute distress. Neck supple no JVD. CVS regular rate rhythm, Respiratory lungs clear to auscultation, no respiratory distress, no wheeze, no rhonchi. Gastrointestinal abdomen soft, non tender, bowel sounds audible,no guarding , no rigidity. Extremities no edema. Neuro nonfocal Skin no rash Psych appropriate affect. Objective Data Active Medications Acetaminophen (Acetaminophen 325 Mg Tablet) 975 mg PO Q6H PRN PRN Reason: headache Aspirin (Aspirin 81 Mg Tab.Chew) 81 mg PO DAILY [facility] Last Admin: 11/27/23 10:22 Dose: 81 mg Documented By: CORINNE Diphenhydramine HCl (Diphenhydramine Hcl 25 Mg Capsule) 50 mg PO DAILY PRN PRN Reason: Itching Ezetimibe (Ezetimibe 10 Mg Tablet) 10 mg PO DAILY [facility] Last Admin: 11/27/23 10:22 Dose: 10 mg Documented By: CORINNE Fluticasone/Umeclidinium/Vilanterol (Fluticasone/Umeclidinium/Vilanterol 200/62.5/25 Blst.W.Dev) 1 puff INHALE RDAILY [facility] Last Admin: 11/27/23 11:36 Dose: Not Given Documented By: GEOVANNA Non-Admin Reason: Med Not Available Heparin Sodium (Porcine) (Heparin Sodium,Porcine 5,000 Unit/Ml Vial) 5,000 unit SUBCUT Q12H [facility] Last Admin: 11/27/23 10:22 Dose: 5,000 unit Documented By: CORINNE Levothyroxine Sodium (Levothyroxine Sodium 50 Mcg Tablet) 50 mcg PO DAILY@0600 [facility] Last Admin: 11/27/23 06:24 Dose: 50 mcg Documented By: MONICA Losartan Potassium (Losartan Potassium 50 Mg Tablet) 100 mg PO DAILY [facility]; Protocol Last Admin: 11/27/23 10:22 Dose: 100 mg Documented By: CORINNE Montelukast Sodium (Montelukast Sodium 10 Mg Tablet) 10 mg PO DAILY [facility] Last Admin: 11/27/23 10:22 Dose: 10 mg Documented By: CORINNE Omeprazole (Omeprazole 20 Mg Capsule.Dr) 20 mg PO DAILY@0630 [facility] Last Admin: 11/27/23 06:24 Dose: 20 mg Documented By: MONICA Sodium Chloride (0.9 % Sodium Chloride Flush 3 Ml Syringe) 3 ml IVFLUSH QSHIFT [facility] Last Admin: 11/27/23 10:51 Dose: 3 ml Documented By: CORINNE Timolol Maleate (Timolol Maleate 0.5 % Oph Shayy 5 Ml Drbtl) 1 drop EYE-LEFT DAILY [facility] Tramadol HCl (Tramadol Hcl 50 Mg Tablet) 25 mg PO Q4H PRN PRN Reason: Pain, Severe (Pain Scale 7-10) Last Admin: 11/27/23 10:51 Dose: 25 mg Documented By: CORINNE Vitamin D (Cholecalciferol (Vitamin D3) 25 Mcg Tablet) 50 mcg PO DAILY [facility] Last Admin: 11/27/23 10:21 Dose: 50 mcg Documented By: CORINNE Labs 11/27/23 05:38 11/27/23 05:38 Labs: Laboratory Results - last 24 hr 11/26/23 11/26/23 11/27/23 12:28 18:03 05:38 MCV 84.9 85.1 MCH 27.8 28.9 MCHC 32.8 33.9 RDW 15.5 15.3 Plt Count 164 162 MPV 10.7 11.4 Immature Gran % (Auto) 0.5 H 0.4 Neut % (Auto) 76.8 H 67.4 Lymph % (Auto) 16.7 L 23.1 [place] % (Auto) 4.2 5.9 Eos % (Auto) 1.5 2.8 Baso % (Auto) 0.3 0.4 Lymph # (Auto) 1.6 1.9 [place] # (Auto) 0.4 0.5 Eos # (Auto) 0.1 0.2 Baso # (Auto) 0.0 0.0 Abs Immat Gran (auto) 0.05 H 0.03 Absolute Neuts (auto) 7.4 5.5 Absolute Nucleated RBC 0.000 0.000 Nucleated RBC % (auto) 0.0 0.0 PT 12.3 INR 1.0 Anion Gap 16 13 Estim Creat Clear Calc 39.0 41.4 Estimated GFR > 60 > 60 Random Glucose 98 86 Calcium 10.4 H D 9.5 D Magnesium 1.9 Total Bilirubin 0.8 Direct Bilirubin 0.3 AST 24 ALT 15 Alkaline Phosphatase 64 Total Protein 8.1 H Albumin 4.3 Urine Color Yellow Urine Appearance Clear Urine pH 7.0 Ur Specific [place] 1.010 Urine Protein 30 (1+) H Urine Glucose (UA) Negative Urine Ketones Negative Urine Blood Negative Urine Nitrite Negative Ur Leukocyte Esterase Trace H Urine RBC 0-2 Urine WBC 0-5 Ur Squamous Epith Cells 0-2 Urine Bacteria None Seen Hyaline Casts 0-2 Assessment and Plan (1) Chest pain: Status: Acute (2) Uncontrolled hypertension: Status: Acute Plan 88-year-old female patient presented with multiple symptoms of generalized body ache headache, abdominal pain and chest discomfort noted to have elevated blood pressure 240/108 treated with IV labetalol. Hypertensive Crisis: History of longstanding hypertension on Cozaar 100 mg daily, history of non ST elevation [place] with high blood pressure in the past, with normal cardiac catheterization. Norvasc 5 mg daily added Mild bradycardia likely due to labetalol ,Troponin mildly elevated, EKG showed left ventricular hypertrophy, no acute ischemic changes, less likely acute coronary syndrome, normal renal function,CT head unremarkable, chest x-ray negative Echo and cardiology consult pending. Chronic abdominal pain likely irritable bowel syndrome with episodes of constipation followed by diarrhea will place on Metamucil. Hyperlipidemia continue ezetimibe Hypothyroidism continue levothyroxine DVT prophylaxis on heparin subQ Code status full code Patient will need continued inpatient hospitalization for management of hypertensive crisis requiring further workup and expert consultation. Quality Stroke Does the patient have a stroke diagnosis?: No VTE Prior VTE?: No VTE Risk Level:: Medical - moderate - high VTE Device Contraindication: Treatment Not Indicated VTE Drug Contraindication: N/A - Med Ordered
--- NOTE | 2023-11-27 12:39 | MHC.CM.PN ---
PT REPORTS SHE LIVES ALONE AND IS INDEPENDENT WITH SELF CARE SHE HAS TWO HOURS PER WEEK OF PERSONAL CARE AIDE SERVICES TO ASSIST WITH HOUSEKEEPING PT USES A CANE PRN HCP ON FILE PCP: [facility]MM DELIVERED DCP: HOME RESUME PERSONAL CARE AIDE AND POSSIBLY NEW [facility] REFERRAL PLACED TO [facility] TO TRANSPORT
[2023-11-27] MEDS: Acetaminophen 325 MG TABLET 975 MG PO ×2 (13:00→19:39)
[2023-11-27] MEDS: timoloL maleate 0.5 % Oph Sol 5 ML DRBTL 1 DROP EYE-LEFT (13:01)
--- NOTE | 2023-11-27 14:29 | P.CONCA_ITS ---
History of Present Illness History of Present Illness Date of Service: 11/27/23 Requesting physician: Neto Wolfe Chief complaint: Hypertensive Crisis Narrative: 88-year-old female who is presenting with elevated blood pressures. She went to her primary care physician for follow-up and blood pressure was significantly elevated. She was advised to go to the emergency department. She has been experiencing atypical chest pains which are chronic. She was seen in 2020 by myself when she came with chest pain and EKG changes and was taken for cardiac catheterization which showed no significant coronary disease. It was felt that her presentation was due to elevated blood pressure. She has some dyspepsia and also gets left-sided sharp chest pains randomly. She does not monitor her blood pressure closely at home. She was taking losartan 100 mg daily. She has been given amlodipine 5 mg daily. On her med list there is also severe sinus tablets which has phenylephrine in it. We need to confirm whether she has been taking them regularly or not PMFSH Past Medical History Medical History Sinusitis Joint pain Depression COVID-19 vaccine series completed Hx of chest pain Back pain Headache Hypertension Spondylolysis Arthritis Asthma Hypothyroid HLD (hyperlipidemia) GERD (gastroesophageal reflux disease) Surgical History Surgical History Hx of cardiac catheterization History of nasal surgery History of esophagogastroduodenoscopy (EGD) Hx of colonoscopy History of hysterectomy Social History Social History (Updated 03/29/21 @ 12:54 by SAMIA Dubois) Household Members: None Housing: Apartment Are you a primary care associate to a significant other at home: No Do you presently have visiting nurse or other home services: No Alcohol intake: never Patient Tobacco Use Status: Former Tobacco user Quit Date: 1999 Tobacco use type: Cigarette Years Smoked: 20 Substance Use Type: Marijuana Advance Directives Date on File: 02/23/21 service: No Meds Allergies Allergy/AdvReac Type Severity Reaction Status Date / Time oxycodone [From PERCOCET] Allergy Mild UNKNOWN Verified 11/26/23 12:09 pregabalin [From LYRICA] Allergy Mild UNKNOWN Verified 11/26/23 12:09 Sulfa (Sulfonamide Allergy Unknown HIVES Verified 01/24/24 12:10 Antibiotics) [SULFA(SULFONAMIDE ANTIBIOTICS)] Active Medications: Current Medications Acetaminophen (Acetaminophen 325 Mg Tablet) 975 mg PO Q6H PRN PRN Reason: headache Last Admin: 11/27/23 13:00 Dose: 975 mg Amlodipine Besylate (Amlodipine Besylate 5 Mg Tablet) 5 mg PO DAILY [facility]; Protocol Aspirin (Aspirin 81 Mg Tab.Chew) 81 mg PO DAILY [facility] Last Admin: 11/27/23 10:22 Dose: 81 mg Diphenhydramine HCl (Diphenhydramine Hcl 25 Mg Capsule) 50 mg PO DAILY PRN PRN Reason: Itching Ezetimibe (Ezetimibe 10 Mg Tablet) 10 mg PO DAILY [facility] Last Admin: 11/27/23 10:22 Dose: 10 mg Fluticasone/Umeclidinium/Vilanterol (Fluticasone/Umeclidinium/Vilanterol 200/62.5/25 Blst.W.Dev) 1 puff INHALE RDAILY [facility] Last Admin: 11/27/23 11:36 Dose: Not Given Heparin Sodium (Porcine) (Heparin Sodium,Porcine 5,000 Unit/Ml Vial) 5,000 unit SUBCUT Q12H [facility] Last Admin: 11/27/23 10:22 Dose: 5,000 unit Levothyroxine Sodium (Levothyroxine Sodium 50 Mcg Tablet) 50 mcg PO DAILY@0600 [facility] Last Admin: 11/27/23 06:24 Dose: 50 mcg Losartan Potassium (Losartan Potassium 50 Mg Tablet) 100 mg PO DAILY [facility]; Protocol Last Admin: 11/27/23 10:22 Dose: 100 mg Montelukast Sodium (Montelukast Sodium 10 Mg Tablet) 10 mg PO DAILY [facility] Last Admin: 11/27/23 10:22 Dose: 10 mg Omeprazole (Omeprazole 20 Mg Capsule.Dr) 20 mg PO DAILY@0630 [facility] Last Admin: 11/27/23 06:24 Dose: 20 mg Psyllium Hydrophilic Mucilloid (Psyllium Seed 3.7 Gm Packet) 3.7 gm PO DAILY [facility] Sodium Chloride (0.9 % Sodium Chloride Flush 3 Ml Syringe) 3 ml IVFLUSH QSHIFT [facility] Last Admin: 11/27/23 10:51 Dose: 3 ml Timolol Maleate (Timolol Maleate 0.5 % Oph Shayy 5 Ml Drbtl) 1 drop EYE-LEFT DAILY [facility] Last Admin: 11/27/23 13:01 Dose: 1 drop Tramadol HCl (Tramadol Hcl 50 Mg Tablet) 25 mg PO Q4H PRN PRN Reason: Pain, Severe (Pain Scale 7-10) Last Admin: 11/27/23 10:51 Dose: 25 mg Vitamin D (Cholecalciferol (Vitamin D3) 25 Mcg Tablet) 50 mcg PO DAILY [facility] Last Admin: 11/27/23 10:21 Dose: 50 mcg Home Medications Medication Instructions Recorded Confirmed Last Taken Type ezetimibe 10 mg tablet 1 tab PO DAILY 02/23/21 11/26/23 11/25/23 History fluticasone propionate 50 2 spray intranasal DAILY 02/23/21 11/26/23 11/25/23 History mcg/actuation nasal spray,suspension levothyroxine 50 mcg tablet 1 tab PO DAILY 02/23/21 11/26/23 11/25/23 History montelukast 10 mg tablet 1 tab PO DAILY 02/23/21 11/26/23 11/25/23 History omeprazole 20 mg capsule,delayed 1 cap PO DAILY 02/23/21 11/26/23 11/25/23 History release timolol maleate 0.5 % eye drops 1 drp ophthalmic-Left QAM 02/23/21 11/26/23 11/25/23 History hydrocodone 5 mg-acetaminophen 325 1 tab PO QID PRN Pain 03/08/21 11/26/23 Unknown History mg tablet calcium carbonate 500 mg-vitamin 1 tab PO DAILY 11/26/23 11/26/23 Unknown History D3 10 mcg (400 unit) tablet (Calcium 500 + D) cholecalciferol (vitamin D3) 50 50 mcg PO DAILY 11/26/23 11/26/23 Unknown History mcg (2,000 unit) capsule (Vitamin D3) diphenhydramine HCl 50 mg capsule 50 mg PO DAILY PRN Itching 11/26/23 11/26/23 Unknown History (Banophen) fluticasone fur. 200 mcg-umeclid 1 ea inhalation DAILY 11/26/23 11/26/23 11/25/23 History 62.5 mcg-vilant 25 mcg inhalat.powder (Trelegy Ellipta) losartan 100 mg tablet 100 mg PO DAILY 11/26/23 11/26/23 Unknown History sexoactxhbpir-cbjosmwnlbyos-salywgmjste 2 tab PO Q4-6H PRN Sinus Symptoms 11/26/23 11/26/23 Unknown History 5 mg-325 mg-200 mg tablet (Severe Sinus) Physical Exam 2 Vital Signs: Vital Signs: Last Vital Signs Temp 98.6 F 11/27/23 11:19 Pulse 58 11/27/23 11:19 Resp 16 11/27/23 11:19 BP 150/66 H 11/27/23 11:19 Pulse Ox 96 11/27/23 11:19 O2 Del Method Room Air 11/27/23 11:19 BMI result Body Mass Index 24.6 GENERAL APPEARANCE: in no acute distress, pleasant. NECK: no carotid bruit, no jugular venous distention. SKIN: no suspicious lesions, warm and dry. HEART: no murmurs, regular rate and rhythm. LUNGS: clear to auscultation bilaterally. ABDOMEN: soft, nontender. EXTREMITIES: no edema. PERIPHERAL PULSES: equal. NEUROLOGIC: No gross deficits, AAO X 3 Objective Labs and Meds 11/27/23 05:38 11/27/23 05:38 Lab results: Laboratory Results - last 24 hr 11/26/23 11/26/23 11/27/23 15:40 18:03 05:38 WBC 8.1 RBC 4.57 Hgb 13.2 Hct 38.9 MCV 85.1 MCH 28.9 MCHC 33.9 RDW 15.3 Plt Count 162 MPV 11.4 Immature Gran % (Auto) 0.4 Neut % (Auto) 67.4 Lymph % (Auto) 23.1 [place] % (Auto) 5.9 Eos % (Auto) 2.8 Baso % (Auto) 0.4 Lymph # (Auto) 1.9 [place] # (Auto) 0.5 Eos # (Auto) 0.2 Baso # (Auto) 0.0 Abs Immat Gran (auto) 0.03 Absolute Neuts (auto) 5.5 Absolute Nucleated RBC 0.000 Nucleated RBC % (auto) 0.0 Sodium 139 Potassium 3.6 Chloride 107 Carbon Dioxide 23 Anion Gap 13 BUN 10 Creatinine 0.81 Estim Creat Clear Calc 41.4 Estimated GFR > 60 Random Glucose 86 Calcium 9.5 D Troponin I High Sens 22.6 H D 24.5 H Urine Color Yellow Urine Appearance Clear Urine pH 7.0 Ur Specific [place] 1.010 Urine Protein 30 (1+) H Urine Glucose (UA) Negative Urine Ketones Negative Urine Blood Negative Urine Nitrite Negative Ur Leukocyte Esterase Trace H Urine RBC 0-2 Urine WBC 0-5 Ur Squamous Epith Cells 0-2 Urine Bacteria None Seen Hyaline Casts 0-2 Assessment and Plan (1) Uncontrolled hypertension: Status: Acute Plan 88-year-old female presenting with significantly elevated blood pressures and non anginal chest pain. She has known history of elevated blood pressure and previously had angiogram in 2020 which was normal. EKG showing left ventricular hypertrophy and some nonspecific T-wave changes. Blood pressure is coming down with amlodipine. This should be continued and titrated further depending on how blood pressure responds. Please confirm that she is taking phenylephrine Tylenol combination for sinus pain or not. If he is taking that she should be advised not to take it any further because that could be the potential cause for episodic elevated blood pressures. We will follow along with you. Thank you for allowing me to participate in the care of your patient. Please feel free to contact me if you have any questions. A Procedures Date of Service Date of Service: 11/27/23
--- NOTE | 2023-11-27 15:06 | PC.NURSE ---
HR noted to be 44-49bpm on air sampling and monitoring. Patient sitting up talking on phone when this RN entered the room. Dr. Wolfe made aware. No new orders.
[2023-11-27] MEDS: Fluticasone/Umeclidinium/Vilanterol 200/62.5/25 BLST.W.DEV 1 PUFF INHALE (19:46)
--- NOTE | 2023-11-28 | ECG_ITS ---
Test Reason : BRADYCARDIA Blood Pressure : / mmHG Vent. Rate : 049 BPM Atrial Rate : 049 BPM P-R Int : 168 ms QRS Dur : 094 ms QT Int : 474 ms P-R-T Axes : 052 -05 156 degrees QTc Int : 428 ms Sinus bradycardia Left ventricular hypertrophy with repolarization abnormality ( R in aVL , Sokolow-Olivares , Brock product , Romhilt-Parikh ) Abnormal ECG No previous ECGs available Referred By: Neto Wolfe Electronically Signed By:Shen Foley
[2023-11-28 04:00] VITALS: BP 174/64; PULSE 58; RESP 16; TEMP 36.4; O2SAT 98
[2023-11-28] MEDS: Levothyroxine Sodium 50 MCG TABLET PO (05:46)
[2023-11-28] MEDS: Omeprazole 20 MG CAPSULE.DR PO (05:46)
[2023-11-28 06:20] VITALS: BP 160/58
[2023-11-28 07:33] VITALS: BP 168/70; PULSE 50; RESP 18; TEMP 36.4; O2SAT 99
[2023-11-28] MEDS: Fluticasone/Umeclidinium/Vilanterol 200/62.5/25 BLST.W.DEV 1 PUFF INHALE (07:59)
[2023-11-28 08:00] VITALS: PULSE 50; RESP 18; O2SAT 97
[2023-11-28] MEDS: Losartan Potassium 50 MG TABLET 100 MG PO (08:01)
[2023-11-28] MEDS: Heparin Sodium,Porcine 5,000 UNIT/ML VIAL 5000 UNIT SUBCUT (08:01)
[2023-11-28] MEDS: amLODIPine Besylate 5 MG TABLET PO (08:02)
[2023-11-28] MEDS: Aspirin 81 MG TAB.CHEW PO (08:02)
[2023-11-28] MEDS: Montelukast Sodium 10 MG TABLET PO (08:02)
[2023-11-28] MEDS: Psyllium seed 3.7 GM PACKET PO (08:02)
[2023-11-28] MEDS: Cholecalciferol (Vitamin D3) 25 MCG TABLET 50 MCG PO (08:02)
[2023-11-28] MEDS: Ezetimibe 10 MG TABLET PO (08:02)
[2023-11-28] MEDS: 0.9 % Sodium Chloride Flush 3 ML SYRINGE IVFLUSH (08:03)
[2023-11-28] MEDS: timoloL maleate 0.5 % Oph Sol 5 ML DRBTL 1 DROP EYE-LEFT (08:16)
[2023-11-28 09:35] VITALS: BP 150/58; PULSE 52; RESP 18
[2023-11-28] MEDS: hydroCHLOROthiazide 25 MG TABLET PO (09:54)
--- NOTE | 2023-11-28 11:10 | PM.PNCARD ---
Subjective Subjective Date of Service: 11/28/23 Interval history: Seen examined at bedside. Feeling good. ECHO reviewed and discussed with patient. Physical Exam Vital Signs: Last Vital Signs Temp 97.6 F 11/28/23 07:33 Pulse 52 11/28/23 09:35 Resp 18 11/28/23 09:35 BP 150/58 H 11/28/23 09:35 Pulse Ox 99 11/28/23 07:33 O2 Del Method Room Air 11/28/23 07:33 BMI result Body Mass Index 24.6 GENERAL APPEARANCE: in no acute distress, pleasant. NECK: no carotid bruit, no jugular venous distention. SKIN: no suspicious lesions, warm and dry. HEART: no murmurs, regular rate and rhythm. LUNGS: clear to auscultation bilaterally. ABDOMEN: soft, nontender. EXTREMITIES: no edema. PERIPHERAL PULSES: equal. NEUROLOGIC: No gross deficits, AAO X 3 Objective Labs and Meds 11/27/23 05:38 11/27/23 05:38 Progress Note: A&P Assessment and plan (1) Chest pain: Status: Acute (2) Uncontrolled hypertension: Status: Acute Plan Pleasant 88-year-old female with noncardiac chest discomfort. Blood pressure is elevated and she has been seen previously for similar issues with mild NSTEMI. She had cardiac catheterization in 2020 for ECG changes and high blood pressure when no significant coronary disease was noted. Titrating medications. She will need close monitoring of blood pressure. We will arrange that she could see us in office after discharge. Thank you for allowing me to participate in the care of your patient. Please feel free to contact me if you have any questions. Time Spent With Patient Time: Total time managing care of this patient today ____ minutes. Progress Note: Quality Stroke Does the patient have a stroke diagnosis?: No Procedures Date of Service Date of Service: 11/28/23
[2023-11-28 11:43] VITALS: BP 140/68; PULSE 42; RESP 18; TEMP 36.6; O2SAT 96
--- NOTE | 2023-11-28 12:37 | PC.NURSE ---
MD Wolfe made aware via [employer] connect pt HR 42, ordered Urgent EKG.
--- NOTE | 2023-11-28 13:26 | MHC.CM.PN ---
Addendum entered by Christina Jc RN 11/28/23 15:16: EMR reviewed. Patient is medically cleared for dc home self care. Will resume [facility] services 2 hours weekly. Son will transport home. IMM delivered. Original Note: EMR reviewed. Per MD rounds patient is not medically cleared for dc. Awaiting blood cultures. If blood cultures are negative plan to dc home self care. CM will continue to follow.
[2023-11-28 14:08] LABS: Thyroid Stimulating Hormone 2.17 uIU/mL (0.32-4.0)
--- NOTE | 2023-11-28 14:51 | PM.DS ---
DS: Providers Provider Date of Service: 11/28/23 Date of admission: 11/26/23 19:51 Primary care physician: Gerardo Teresa MD Consults: 11/26/23 20:28 Consult to Cardiology Routine Consulting Provider[place] [facility] [place] [facility] Reason for consultation: chest pain Has provider been notified: No DS: Diagnosis Discharge Diagnosis (1) Chest pain: Status: Acute (2) Uncontrolled hypertension: Status: Acute DS: Summary Hospital Course Hospital Course: History of presenting illness: Date of Service: 11/26/23 Attending physician on admission: Eddie Matt Chief Complaint: Headache Alejandra Guzman is 88 years old woman with past medical history significant for essential hypertension and hyperlipidemia presents to the emergency department complaining of multiple symptoms including generalized headache, chest pain and abdominal pain. She denied nausea, vomiting, diarrhea, diaphoresis, fevers chills. She denies shortness of breath. She does complain of chronic back pain. She denies any dizziness or palpitations. She denies any acute urinary symptoms. She denies swelling to the lower extremities. She denied alcohol abuse, tobacco smoking or illicit drug use. In the ED, she was initially found to have a blood pressure of 240/108. Her most recent blood pressure is 164/64 after receiving treatment with labetalol IV. Blood workup showed no leukocytosis. Troponin slightly elevated. Head CT scan without contrast showed no acute intracranial abnormality. CXR is negative. ECG showed normal sinus rhythm with a heart rate 84 beats per minute and LVH changes with the obvious acute ischemia. ED tx: A total 30 mg Labetalol IV. Hospital course: 88-year-old female patient presented with multiple symptoms of generalized body ache headache, abdominal pain and chest discomfort noted to have elevated blood pressure 240/108 treated with IV labetalol in the emergency room and admitted to telemetry unit with a diagnosis of Hypertensive Crisis, patient with known history of longstanding hypertension and history of non ST elevation [place] due to high blood pressures, had a normal recent cardiac catheterization, on Cozaar 100 mg daily, was placed on Norvasc 5 mg daily, blood pressure improved but remain elevated therefore hydrochlorothiazide 25 mg daily was added by Cardiology with good blood pressure response, patient was noted to have mildly elevated troponin, EKG showed left ventricular hypertrophy, with no acute ischemic changes, and echocardiogram showed an EF of 70%, with abnormal diastolic function and septal asymmetric hypertrophy. Patient was followed closely by cardiology and felt not to have acute coronary syndrome therefore she is being discharged home on Cozaar 100 mg, Norvasc 5 mg and hydrochlorothiazide [address] head that showed no acute abnormality, and a chest x-ray was negative, she was noted to have normal electrolytes and renal function. Patient was noted to have sinus bradycardia EKG obtained that showed normal IA interval no pauses on tele monitor, patient on timolol eyedrops question contributing to bradycardia however patient is asymptomatic with normal TSH normal electrolytes therefore no further workup recommend to have close outpatient follow-up with PCP patient is also recommended to avoid decongestant on a regular basis that can shoot the blood pressure. Chronic abdominal pain likely irritable bowel syndrome with episodes of constipation followed by diarrhea placed on Metamucil. Hyperlipidemia continue ezetimibe Hypothyroidism continue levothyroxine, TSH with a normal range Time Attestation Discharge coordination time: Greater than 30 minutes Quality: Safe Use of Opioids Does Pt have an Active Cancer Diagnosis on the Problem List?: No Quality: Stroke Does the patient have a stroke diagnosis?: No Physical Exam Vital Signs: Vital Signs: Last Vital Signs Temp 97.8 F 11/28/23 11:43 Pulse 42 L 11/28/23 11:43 Resp 18 11/28/23 11:43 BP 140/68 H 11/28/23 11:43 Pulse Ox 96 11/28/23 11:43 O2 Del Method Room Air 11/28/23 11:43 BMI result Body Mass Index 24.6 Const: Other: General awake alert x3, resting comfortably, in no acute distress. Neck supple no JVD. CVS regular rate rhythm, Respiratory lungs clear to auscultation, no respiratory distress, no wheeze, no rhonchi. Gastrointestinal abdomen soft, non tender, bowel sounds audible,no guarding , no rigidity. Extremities no edema. Neuro non focal Skin no rash Psych appropriate affect. DS: Data Data Completed and Pending Labs on day of discharge: Laboratory Results - last 24 hr 11/28/23 13:20 TSH 2.17 Discharge Plan Discharge Anticipated Discharge Date/Time: 11/28/23 07:38 Patient Disposition: Home, Self-Care Discharge Diagnosis: Hypertensive crisis Referrals: Gerardo Teresa MD [Primary Care Provider] - 1 Week Discharge Medications: New Hydrocil Instant Packet 1 packet PO DAILY Qty: 30 0RF amlodipine 5 mg Tablet 5 mg PO DAILY Qty: 30 0RF Protocol: Hold for SBP< HOLD for SBP < : 90 hydrochlorothiazide 25 mg Tablet 25 mg PO DAILY Qty: 30 0RF Protocol: Hold for SBP< HOLD for SBP < : 90 Continued levothyroxine 50 mcg tablet 1 tab PO DAILY omeprazole 20 mg capsule,delayed release(DR/EC) 1 cap PO DAILY montelukast 10 mg tablet 1 tab PO DAILY timolol maleate 0.5 % drops 1 drp ophthalmic-Left QAM fluticasone propionate 50 mcg/actuation spray,suspension 2 spray intranasal DAILY ezetimibe 10 mg tablet 1 tab PO DAILY Trelegy Ellipta 200-62.5-25 mcg blister with device 1 ea inhalation DAILY diphenhydramine HCl [Banophen] 50 mg Capsule 50 mg PO DAILY PRN (Reason: Itching) losartan 100 mg tablet 100 mg PO DAILY calcium carbonate-vitamin D3 [Calcium 500 + D] 500 mg-10 mcg (400 unit) Tablet 1 tab PO DAILY cholecalciferol (vitamin D3) [Vitamin D3] 50 mcg (2,000 unit) Capsule 50 mcg PO DAILY hydrocodone-acetaminophen 5-325 mg tablet 1 tab PO QID PRN (Reason: Pain) Discontinued Severe Sinus 5-325-200 mg Tablet 2 tab PO Q4-6H PRN (Reason: Sinus Symptoms) Discharge Orders: Discharge Order (Routine); Ordered 11/28/23 Ordered By: Neto Wolfe Diet: Low fat, low cholesterol Activity on Discharge: As tolerated Stand Alone Forms: Patient Portal Discharge page Care Plan Goals: Admitted with high blood pressure, blood pressure improved continue Cozaar 100 mg, take Norvasc 5 mg daily and hydrochlorothiazide 25 mg daily In regard to constipation alternating with diarrhea take Metamucil 1 packet daily Mild bradycardia likely due to timolol eyedrop no further workup Avoid using medications with decongestants like phenylepherine that can increase blood pressure Health Concerns: Continue all home medications as before Plan of Treatment: Outpatient follow-up with primary care physician call for appointment Assessment: As above
== END 2023-11-28 15:38 | disposition home or self-care (01) | DRG 305 ==
LOC: HO.ED 18:39 → HO.EDOVER 19:58 → HO.S3 11-27 07:55
PROVIDERS: Physician Assistant; Admitting Provider Internal Medicine; Emergency Provider Emergency Medicine Emergency Medical Services; PCP Internal Medicine; Visit Provider Hospitalist
DX: I16.9 Hypertensive crisis, unspecified (principal); I10 Essential (primary) hypertension; E03.9 Hypothyroidism, unspecified; K58.2 Mixed irritable bowel syndrome; E78.5 Hyperlipidemia, unspecified; Z87.891 Personal history of nicotine dependence; Z91.148 Patient's other noncompliance with medication regimen for other reason; Z79.51 Long term (current) use of inhaled steroids; Z79.890 Hormone replacement therapy; Z79.899 Other long term (current) drug therapy
CPT/HCPCS: 36415; 70450; 71045; 80048; 80076; 81001; 83735; 84443; 84484; 85025; 85610; 93005; 93306; 94640; 99285; J1644; J1920; Q9957

== ENCOUNTER → 2023-11-26 12:13 | Outpatient (BNV) | payer MEDICARE, SELFPAY | PROVIDERS: PCP Internal Medicine; Visit Provider Internal Medicine Cardiovascular Disease | DX: R94.31 Abnormal electrocardiogram [ECG] [EKG] (principal); I10 Essential (primary) hypertension | CPT/HCPCS: 93010 ==

== ENCOUNTER 2023-11-26 19:51 | Outpatient (BNV) | payer MEDICARE, SELFPAY | END 2023-11-28 12:50 | PROVIDERS: Admitting Provider Internal Medicine; Emergency Provider Emergency Medicine Emergency Medical Services; PCP Internal Medicine; Visit Provider Internal Medicine Cardiovascular Disease | DX: R00.1 Bradycardia, unspecified (principal) | CPT/HCPCS: 93010 ==

== ENCOUNTER 2023-11-26 19:51 | Outpatient (BNV) | payer MEDICARE, SELFPAY | END 2023-11-27 07:00 | PROVIDERS: Admitting Provider Internal Medicine; Emergency Provider Emergency Medicine Emergency Medical Services; PCP Internal Medicine; Visit Provider Internal Medicine Cardiovascular Disease | DX: I36.1 Nonrheumatic tricuspid (valve) insufficiency (principal) | CPT/HCPCS: 93306 ==

== ENCOUNTER → 2023-11-26 19:51 | Outpatient (BNV) | payer MEDICARE, SELFPAY | PROVIDERS: Admitting Provider Internal Medicine; Emergency Provider Emergency Medicine Emergency Medical Services; PCP Internal Medicine; Visit Provider Internal Medicine | DX: R07.9 Chest pain, unspecified (principal); I16.9 Hypertensive crisis, unspecified; E78.5 Hyperlipidemia, unspecified | CPT/HCPCS: 99223; 99233; 99239 ==

== ENCOUNTER → 2023-11-26 19:51 | Outpatient (BNV) | payer MEDICARE, SELFPAY | PROVIDERS: Admitting Provider Internal Medicine; Emergency Provider Emergency Medicine Emergency Medical Services; PCP Internal Medicine; Visit Provider Internal Medicine Cardiovascular Disease | DX: R07.9 Chest pain, unspecified (principal); I10 Essential (primary) hypertension | CPT/HCPCS: 99223; 99232 ==

== ENCOUNTER 2024-01-02 14:40 | Emergency (ER) | payer MEDICARE, OTHER, SELFPAY ==
--- NOTE | ~2024-01-02 | CT_ITS ---
EXAMINATION: CT CHEST WITHOUT CONTRAST CLINICAL INFORMATION: Left-sided chest/abdominal pain and fall. COMPARISON: Chest x-ray 11/26/2023. TECHNIQUE: Multidetector volumetric CT imaging of the chest was done. Axial MIP volume rendering provided. Sagittal and coronal reformatted images were obtained. This CT examination was performed using dose optimization techniques as appropriate, variously including the following: *Automated exposure control *Adjustment of mA and/or kV according to patient size (this includes techniques or standardized protocols for targeted exams where dose is matched to indication/reason for exam; i.e. 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 LUNGS: The lungs are well-expanded with dependent bibasilar atelectasis. There is no lung nodules, mass or consolidation. There is platelike atelectasis right middle lobe. MEDIASTINUM: The thyroid lobes are symmetrical and normal. The central trachea and bronchi are widely patent. Heart size and the great vessels are normal caliber. There is no pericardial effusion. No abnormal size mediastinal or hilar lymph nodes seen. CORONARY ARTERY CALCIFICATION: None visualized on this study. PLEURA: There is no pleural effusion. No pleural mass or thickening. AXILLA: No lymphadenopathy. UPPER ABDOMEN: Visualized liver, spleen appears unremarkable. OSSEOUS STRUCTURES: Mild degenerative disc changes and ventral spondylosis seen mid dorsal spine. No aggressive lytic or sclerotic process seen. CT/CT chest wo IV con IMPRESSION: Mild atelectatic changes right middle lobe. Otherwise no acute process seen. Fleischner guidelines were followed.
--- NOTE | ~2024-01-02 | CT_ITS ---
EXAMINATION: CT HEAD WITHOUT CONTRAST CT CERVICAL SPINE WITHOUT CONTRAST CLINICAL INFORMATION: Fall. Pain. COMPARISON: CT scan of the head 11/26/2023. TECHNIQUE: Multidetector CT imaging of the head and cervical spine was performed without the use of intravenous contrast. Coronal and sagittal reformatted images were generated at the technologist workstation. This CT examination was performed using dose optimization techniques as appropriate, variously including the following: *Automated exposure control *Adjustment of mA and/or kV according to patient size (this includes techniques or standardized protocols for targeted exams where dose is matched to indication/reason for exam; i.e. extremities or head) *Use of iterative reconstruction technique DLP: 1305 mGy-cm (including concurrent CT scan of the chest). FINDINGS: CT head: There is no evidence of acute intracranial hemorrhage or territorial infarction. No abnormal mass-effect or midline shift is seen. Zhang to white matter differentiation is well preserved. No extra-axial fluid collections are identified. There is commensurate prominence of the ventricles and sulci consistent with diffuse volume loss. There are scattered areas of low-attenuation in the periventricular and subcortical white matter, most consistent with chronic microvascular ischemic changes. There are calcifications in the basal ganglia bilaterally. There has been a right lens extraction. There are no acute osseous findings. There is hyperostosis frontalis interna. The mastoid air cells are well-aerated. There is extensive opacification of the bilateral ethmoid sinuses, right greater than left frontal sinus opacification. There is mild bilateral sphenoid sinus mucoperiosteal thickening. There is extensive opacification in the left maxillary sinus with a likely polyp with multiple areas of calcification, which may be fungal related sinus disease. There is also more diffuse mucoperiosteal thickening in the posterior left and in the right maxillary sinuses. CT cervical spine: There is straightening of the normal cervical lordosis. There is a mild dextroscoliosis at the cervicothoracic region. There is multilevel narrowing of intervertebral disc height with degenerative endplate contour changes, most severe at C4-C5. Vertebral body heights are maintained, and no fractures are demonstrated. The lateral masses of C1 and C2 are normally aligned and the dens is intact. There is normal facet alignment. There are are facet arthropathic changes inferiorly on the left. The prevertebral soft tissues are unremarkable. The thyroid gland appears normal. The visualized lung apices are well-aerated. There is a left-sided C7 accessory rib. There is a 1.1 cm calcification in the region of the left submandibular gland, which may be consistent with a sialolith. CT/CT cervical spine wo IV con IMPRESSION: 1. There are no acute bleeds or territorial infarcts. No masses are demonstrated. 2. There is diffuse volume loss and there are chronic microvascular ischemic changes. 3. There are no acute fractures or subluxations in the cervical spine. There are multilevel spondylitic and facet arthropathic changes. 4. There is a calcification in the region of the left submandibular gland, which may be consistent with a sialolith. 5. 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
--- NOTE | ~2024-01-02 | XR_ITS ---
EXAMINATION: XR SHOULDER, LEFT CLINICAL INFORMATION: Pain. Injury. COMPARISON: None available. TECHNIQUE: 3 views of the left shoulder. FINDINGS: Bone alignment is normal. No fracture or dislocation. Arthritis at the acromioclavicular joint with joint space narrowing and osteophyte formation. There is also a small inferior osteophyte projecting off the humeral head at the glenohumeral joint. Soft tissues are normal. XR/XR shoulder LT min 2V IMPRESSION: No fracture or dislocation.
[2024-01-02 14:51] VITALS: BP 172/88; PULSE 90; O2SAT 98
--- NOTE | 2024-01-02 14:51 | ED_ITS ---
HPI - General Adult General Chief complaint: Fall Stated complaint: fall + collar neck back pain Time Seen by Provider: 01/02/24 14:48 Source: patient and EMS Mode of arrival: EMS Limitations: no limitations History of Present Illness HPI narrative: Patient is an 88 year old assigned female at with a history of HTN presenting to the emergency department today with left shoulder pain after a trip and fall. Patient states that she was on an escalator and when she reached the top she tripped and fell, landing on her left side. Patient states that she does have some head and neck pain but denies any loss of consciousness. Patient denies any dizziness, lightheadedness, abdominal pain, nausea, vomiting, fever, chills, blurry vision, double vision, loss of vision, chest pain, difficulty breathing, shortness of breath, back pain, night sweats, pain with urination, increased urinary frequency, increased urinary urgency, blood in her urine or stool, syncope or a near syncopal episode, bowel incontinence, bladder incontinence, bowel retention, bladder retention, or any other complaints at this time. Onset (ago): minute(s) Location: head, neck, left and upper extremity Severity: mild Severity scale (1-10): 3 Quality: aching and dull Pain Consistency: constant Relieving factors: none Exacerbating factors: none Associated symptoms: denies other symptoms Treatments prior to arrival: none Related Data Home Medications Medication Instructions Recorded Confirmed ezetimibe 10 mg tablet 1 tab PO DAILY 02/23/21 11/26/23 fluticasone propionate 50 2 spray intranasal DAILY 02/23/21 11/26/23 mcg/actuation nasal spray,suspension levothyroxine 50 mcg tablet 1 tab PO DAILY 02/23/21 11/26/23 montelukast 10 mg tablet 1 tab PO DAILY 02/23/21 11/26/23 omeprazole 20 mg capsule,delayed 1 cap PO DAILY 02/23/21 11/26/23 release timolol maleate 0.5 % eye drops 1 drp ophthalmic-Left QAM 02/23/21 11/26/23 hydrocodone 5 mg-acetaminophen 325 1 tab PO QID PRN Pain 03/08/21 11/26/23 mg tablet calcium carbonate 500 mg-vitamin 1 tab PO DAILY 11/26/23 11/26/23 D3 10 mcg (400 unit) tablet (Calcium 500 + D) cholecalciferol (vitamin D3) 50 50 mcg PO DAILY 11/26/23 11/26/23 mcg (2,000 unit) capsule (Vitamin D3) diphenhydramine HCl 50 mg capsule 50 mg PO DAILY PRN Itching 11/26/23 11/26/23 (Banophen) fluticasone fur. 200 mcg-umeclid 1 ea inhalation DAILY 11/26/23 11/26/23 62.5 mcg-vilant 25 mcg inhalat.powder (Trelegy Ellipta) losartan 100 mg tablet 100 mg PO DAILY 11/26/23 11/26/23 Previous Rx's Medication Instructions Recorded amlodipine 5 mg tablet 5 mg PO DAILY #30 tabs 11/28/23 hydrochlorothiazide 25 mg tablet 25 mg PO DAILY #30 tabs 11/28/23 psyllium (Hydrocil Instant oral 1 packet PO DAILY #30 ea 11/28/23 packet) cyclobenzaprine 5 mg tablet 5 mg PO TID PRN muscle spasm 7 01/02/24 days #21 tabs Allergies Allergy/AdvReac Type Severity Reaction Status Date / Time oxycodone [From PERCOCET] Allergy Mild UNKNOWN Verified 11/26/23 12:09 pregabalin [From LYRICA] Allergy Mild UNKNOWN Verified 11/26/23 12:09 Sulfa (Sulfonamide Allergy Unknown HIVES Verified 11/26/23 12:10 Antibiotics) [SULFA(SULFONAMIDE ANTIBIOTICS)] Review of Systems Constitutional: Constitutional: Reports no additional constitutional complaints, Denies chills, Denies fever(s), Reports headache(s) and Denies night sweats Eyes: Eyes: Reports no additional eye complaints, Denies blurry vision, Denies change in vision, Denies diplopia, Denies eye discharge, Denies loss of vision and Denies eye pain ENT: Denies dizziness, Reports headache(s) and Reports neck pain Cardiovascular: Cardiovascular: Reports no additional cardiovascular complaints, Denies chest pain, Denies lightheadedness, Denies Loss of Consciousness and Denies dyspnea Respiratory: Respiratory: Reports no additional respiratory complaints and Denies dyspnea Gastrointestinal: Gastrointestinal: Reports no additional gastrointestinal complaints, Denies abdominal pain, Denies melena, Denies hematochezia, Denies change in bowel habits and Denies change in stool character Genitourinary: Genitourinary: Denies hematuria, Denies urinary frequency, Denies dysuria, Denies urinary incontinence, Denies urinary hesitancy and Denies urinary urgency Musculoskeletal: Musculoskeletal: Reports no additional musculoskeletal complaints, Reports neck pain, Denies numbness and Denies tingling Comments: left shoulder pain Neurologic: Denies dizziness, Reports headache(s), Denies loss of vision, Denies numbness and Denies tingling Psychiatric: Psychiatric: Reports no additional psychiatric complaints Endocrine: Endocrine: Reports no additional endocrine complaints Hematologic/Lymphatic: Hematologic/Lymphatic: Reports no additional hematologic/lymphatic complaints Allergic/Immunologic: Allergic/Immunologic: Reports no additional allergic/immunologic complaints PMFSH Past Medical History Attestation statement: The following information was validated with the patient. Source: old records reviewed and nursing notes reviewed Medical History Sinusitis Joint pain Depression COVID-19 vaccine series completed Hx of chest pain Back pain Headache Hypertension Spondylolysis Arthritis Asthma Hypothyroid HLD (hyperlipidemia) GERD (gastroesophageal reflux disease) Surgical History Hx of cardiac catheterization History of nasal surgery History of esophagogastroduodenoscopy (EGD) Hx of colonoscopy History of hysterectomy Social History Social History Household Members: None Housing: Apartment Are you a primary child care centre director to a significant other at home: No Do you presently have visiting nurse or other home services: No Alcohol intake: current Alcohol intake frequency: holidays/special occasions only Patient Tobacco Use Status: Former Tobacco user Quit Date: 1999 Tobacco use type: Cigarette Years Smoked: 20 Smoked in Last 30 Days: No Use of substances other than those prescribed or required for medical reasons: No Substance Use Type: Marijuana Advance Directives: Yes Advance Directives on File: Yes Advance Directives Date on File: 02/23/21 service: No Physical Exam ED Vital Signs: Vital Signs - 24 hr 01/02/24 15:00 01/02/24 15:05 01/02/24 18:00 Temperature 98.7 F 97.7 F 98.3 F Pulse Rate 89 78 76 Respiratory Rate 18 16 16 Blood Pressure 148/82 H 157/51 H 177/71 H Pulse Oximetry 97 97 95 Oxygen Delivery Method Room Air Room Air Room Air BMI result Body Mass Index 24.2 Const General: cooperative, no acute distress, alert and awake Nutritional Appearance: well nourished Orientation/consciousness: patient oriented x3 Limitations: no limitations HENMT Head: Yes normal to inspection and Yes atraumatic Ears: hearing grossly normal bilaterally and external ears normal General nose exam: Normal external nose present, no nasal discharge noted and no epistaxis Face and sinus: Yes normal facial exam, No abrasion and No laceration Mouth: Normal oral and palatal mucosa present, no drooling and no muffled voice Eyes General: appearance normal, both eyes and all related structures Periorbital: periorbital findings normal Eyelids: Yes eyelids normal Conjunctivae: conjunctivae normal Pupils: Equal, round and reactive pupils present EOM: EOMs intact bilaterally Neck Neck: Yes normal visual inspection, Yes full ROM and Yes no lymphadenopathy Chest Chest palpation & inspection: normal inspection of the chest Resp Effort & Inspection: normal respiratory effort and able to speak in complete sentences GI Inspection: Yes normal to inspection Neuro General: patient oriented x3 and moves all extremities Cranial nerves: Yes Equal, round and reactive pupils present Cognition (Neuro): normal cognition Motor exam (neuro): 5/5 motor strength present throughout Sensory Exam: Normal double simultaneous stimulation for sensation Coordination: [id number] test normal Extrem General: Yes normal to inspection, Yes full ROM and Yes capillary refill normal Psych Appearance: grossly normal Mental Status: mental status grossly normal Affect: normal affect Attitude: cooperative Thought process: Normal thought process present Thought content: Normal thought content present Insight: Good insight present (Psych) Medications Administered Discontinued Medications Generic Name Dose Route Start Last Admin Trade Name Caitlin PRN Reason Stop Dose Admin Cyclobenzaprine HCl 5 mg 01/02/24 16:09 01/02/24 16:26 Cyclobenzaprine Hcl 5 Mg Tablet PO 01/02/24 16:10 5 mg ONCE ONE Administration Medical Decision Making Medical Decision Making [facility] Narrative: Patient is an 88 year old assigned female at with a history of HTN presenting to the emergency department today with left shoulder pain, head pain, and neck pain after a fall. Patient's physical exam was unremarkable. Patient's left shoulder x-ray showed no acute process. Patient's head and c-spine scans were negative. I explained my physical exam findings as well as all test results to the patient. I answered all questions asked by the patient. I stressed the importance of the patient taking her medication as prescribed. I stressed the importance of the patient following up with her primary care provider. I stressed the importance of the patient returning to the emergency department immediately if her symptoms were to worsen or if she were to develop any dizziness, shortness of breath, difficulty breathing, chest pain, blurry vision, loss of vision, nausea, vomiting, abdominal pain, fever, chills, back pain, or any other complaints. Patient verbalized agreement and understanding with this treatment plan and discharge. Differential Diagnosis Differential Diagnoses: The differential diagnosis associated with the presentation includes Trip and fall Left shoulder pain Neck pain Headache Admission/Observation Consideration of admission/observation: Escalation of care including admission/observation considered Patient would have been admitted to the hospital had her work up had any findin gs where hospital admission was appropriate and her clinical presentation warranted hospital admission. Independent Interpretation I performed an independent interpretation of an: Plain X-Ray and CT Scan Interpretation: My interpretation is in agreement with the radiologist's impression of these imaging studies. EXAMINATION: XR SHOULDER, LEFT CLINICAL INFORMATION: Pain. Injury. COMPARISON: None available. TECHNIQUE: 3 views of the left shoulder. FINDINGS: Bone alignment is normal. No fracture or dislocation. Arthritis at the acromioclavicular joint with joint space narrowing and osteophyte formation. There is also a small inferior osteophyte projecting off the humeral head at the glenohumeral joint. Soft tissues are normal. XR/XR shoulder LT min 2V IMPRESSION: No fracture or dislocation. Dictated By: Marlene Flynn MD Signed By: Electronically signed by Marlene Flynn MD 01/02/24 1834 EXAMINATION: CT HEAD WITHOUT CONTRAST CT CERVICAL SPINE WITHOUT CONTRAST CLINICAL INFORMATION: Fall. Pain. COMPARISON: CT scan of the head 11/26/2023. TECHNIQUE: Multidetector CT imaging of the head and cervical spine was performed without the use of intravenous contrast. Coronal and sagittal reformatted images were generated at the technologist workstation. This CT examination was performed using dose optimization techniques as appropriate, variously including the following: *Automated exposure control *Adjustment of mA and/or kV according to patient size (this includes techniques or standardized protocols for targeted exams where dose is matched to indication/reason for exam; i.e. extremities or head) *Use of iterative reconstruction technique DLP: 1305 mGy-cm (including concurrent CT scan of the chest). FINDINGS: CT head: There is no evidence of acute intracranial hemorrhage or territorial infarction. No abnormal mass-effect or midline shift is seen. Zhang to white matter differentiation is well preserved. No extra-axial fluid collections are identified. There is commensurate prominence of the ventricles and sulci consistent with diffuse volume loss. There are scattered areas of low-attenuation in the periventricular and subcortical white matter, most consistent with chronic microvascular ischemic changes. There are calcifications in the basal ganglia bilaterally. There has been a right lens extraction. There are no acute osseous findings. There is hyperostosis frontalis interna. The mastoid air cells are well-aerated. There is extensive opacification of the bilateral ethmoid sinuses, right greater than left frontal sinus opacification. There is mild bilateral sphenoid sinus mucoperiosteal thickening. There is extensive opacification in the left maxillary sinus with a likely polyp with multiple areas of calcification, which may be fungal related sinus disease. There is also more diffuse mucoperiosteal thickening in the posterior left and in the right maxillary sinuses. CT cervical spine: There is straightening of the normal cervical lordosis. There is a mild dextroscoliosis at the cervicothoracic region. There is multilevel narrowing of intervertebral disc height with degenerative endplate contour changes, most severe at C4-C5. Vertebral body heights are maintained, and no fractures are demonstrated. The lateral masses of C1 and C2 are normally aligned and the dens is intact. There is normal facet alignment. There are are facet arthropathic changes inferiorly on the left. The prevertebral soft tissues are unremarkable. The thyroid gland appears normal. The visualized lung apices are well-aerated. There is a left-sided C7 accessory rib. There is a 1.1 cm calcification in the region of the left submandibular gland, which may be consistent with a sialolith. CT/CT head/brain wo IV con IMPRESSION: 1. There are no acute bleeds or territorial infarcts. No masses are demonstrated. 2. There is diffuse volume loss and there are chronic microvascular ischemic changes. 3. There are no acute fractures or subluxations in the cervical spine. There are multilevel spondylitic and facet arthropathic changes. 4. There is a calcification in the region of the left submandibular gland, which may be consistent with a sialolith. 5. 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 Dictated By: BULL COTTRELL MD Signed By: Electronically signed by BULL COTTRELL MD 01/02/24 1740 EXAMINATION: CT CHEST WITHOUT CONTRAST CLINICAL INFORMATION: Left-sided chest/abdominal pain and fall. COMPARISON: Chest x-ray 11/26/2023. TECHNIQUE: Multidetector volumetric CT imaging of the chest was done. Axial MIP volume rendering provided. Sagittal and coronal reformatted images were obtained. This CT examination was performed using dose optimization techniques as appropriate, variously including the following: *Automated exposure control *Adjustment of mA and/or kV according to patient size (this includes techniques or standardized protocols for targeted exams where dose is matched to indication/reason for exam; i.e. 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 LUNGS: The lungs are well-expanded with dependent bibasilar atelectasis. There is no lung nodules, mass or consolidation. There is platelike atelectasis right middle lobe. MEDIASTINUM: The thyroid lobes are symmetrical and normal. The central trachea and bronchi are widely patent. Heart size and the great vessels are normal caliber. There is no pericardial effusion. No abnormal size mediastinal or hilar lymph nodes seen. CORONARY ARTERY CALCIFICATION: None visualized on this study. PLEURA: There is no pleural effusion. No pleural mass or thickening. AXILLA: No lymphadenopathy. UPPER ABDOMEN: Visualized liver, spleen appears unremarkable. OSSEOUS STRUCTURES: Mild degenerative disc changes and ventral spondylosis seen mid dorsal spine. No aggressive lytic or sclerotic process seen. CT/CT chest wo IV con IMPRESSION: Mild atelectatic changes right middle lobe. Otherwise no acute process seen. Fleischner guidelines were followed. Dictated By: Roel Wu MD Signed By: Electronically signed by Roel Wu MD 01/02/24 1800 Radiology Impression Discussion of test interpretation with radiology: I have reviewed the radiologist's reading. Independent Historian Clinical information obtained from an independent historian. History obtained from or confirmed by: EMS (EMS provided additional history and confirmed the history provided by the patient.) Prescription Management I considered prescription management with: Pain Medication (patient prescribed pain medication) Chronic Conditions Patient?s care impacted by: Hypertension Discharge Plan Discharge Clinical Impression: Acute shoulder pain, Fall Patient Disposition: Home, Self-Care Instructions: Fall Prevention for Older Adults (ED), Shoulder Pain (ED) Additional Instructions: Follow up with your primary care provider. Return to the emergency department immediately if your symptoms worsen or if you develop any dizziness, shortness of breath, difficulty breathing, chest pain, blurry vision, loss of vision, nausea, vomiting, abdominal pain, fever, chills, back pain, or any other complaints. Prescriptions: New cyclobenzaprine 5 mg tablet 5 mg PO TID PRN (Reason: muscle spasm) 7 Days Qty: 21 0RF No Action levothyroxine 50 mcg tablet 1 tab PO DAILY omeprazole 20 mg capsule,delayed release(DR/EC) 1 cap PO DAILY montelukast 10 mg tablet 1 tab PO DAILY timolol maleate 0.5 % drops 1 drp ophthalmic-Left QAM fluticasone propionate 50 mcg/actuation spray,suspension 2 spray intranasal DAILY ezetimibe 10 mg tablet 1 tab PO DAILY Trelegy Ellipta 200-62.5-25 mcg blister with device 1 ea inhalation DAILY diphenhydramine HCl [Banophen] 50 mg Capsule 50 mg PO DAILY PRN (Reason: Itching) losartan 100 mg tablet 100 mg PO DAILY calcium carbonate-vitamin D3 [Calcium 500 + D] 500 mg-10 mcg (400 unit) Tablet 1 tab PO DAILY cholecalciferol (vitamin D3) [Vitamin D3] 50 mcg (2,000 unit) Capsule 50 mcg PO DAILY Hydrocil Instant Packet 1 packet PO DAILY Qty: 30 0RF amlodipine 5 mg Tablet 5 mg PO DAILY Qty: 30 0RF Protocol: Hold for SBP< HOLD for SBP < : 90 hydrochlorothiazide 25 mg Tablet 25 mg PO DAILY Qty: 30 0RF Protocol: Hold for SBP< HOLD for SBP < : 90 hydrocodone-acetaminophen 5-325 mg tablet 1 tab PO QID PRN (Reason: Pain) Referrals: Gerardo Teresa MD [Primary Care Provider] - Interventions: ED Discharge Assessment Last Done: 01/02/24 19:12 Discharge Date/Time: 01/02/24 19:08 Print Language: Vincentian
[2024-01-02 15:00] VITALS: BP 148/82; PULSE 89; RESP 18; TEMP 37.1; O2SAT 97
[2024-01-02 15:05] VITALS: BP 157/51; PULSE 78; RESP 16; TEMP 36.5; O2SAT 97; BMI 24.2
[2024-01-02] MEDS: Cyclobenzaprine HCl 5 MG TABLET PO (16:26)
--- NOTE | 2024-01-02 17:28 | PC.NURSE ---
collar cleared. walked well to BR. voided x1. reports pain reflief w the flexeril.
[2024-01-02 18:00] VITALS: BP 177/71; PULSE 76; RESP 16; TEMP 36.8; O2SAT 95
== END 2024-01-02 19:08 | disposition home or self-care (01) ==
PROVIDERS: Emergency Provider Emergency Medicine Emergency Medical Services; PCP Internal Medicine
DX: M25.512 Pain in left shoulder (principal); R51.9 Headache, unspecified; M54.2 Cervicalgia; I10 Essential (primary) hypertension; Z91.81 History of falling
CPT/HCPCS: 70450; 71250; 72125; 73030; 99284

== ENCOUNTER 2025-01-24 12:44 | Inpatient (IN) | payer MEDICARE, OTHER, SELFPAY ==
[2025-01-24] VITALS (9 sets, daily range): BP systolic 100–150; BP diastolic 30–89; PULSE 44–53; RESP 10–18; TEMP 36.4–36.9; O2SAT 96–99; BMI 22.3
--- NOTE | ~2025-01-24 | CT_ITS ---
CLINICAL HISTORY: chest pain, dyspnea CT chest without IV contrast. COMPARISON: CT chest dated 01/02/24 at 15:49 EST FINDINGS: No supraclavicular or axillary lymphadenopathy. Ascending aorta and main pulmonary artery are normal in caliber. Aortic annular calcifications. Coronary artery calcifications present within the RCA and LAD. No pericardial effusion. Normal esophagus. No mediastinal lymphadenopathy. No pleural effusion. Minimal layering atelectasis along the posterior lower lobes. Trachea and central airways are clear. No significant bronchial wall thickening. No bronchiectasis. Visualized portions of the upper abdomen are unremarkable. Mild midthoracic spondylosis. No acute fracture identified. IMPRESSION: 1. No acute intrathoracic findings. 2. Minimal atelectasis along the posterior lower lobes, similar to prior imaging. 3. Coronary artery atherosclerosis. This document has been electronically signed by: Luiz Pham MD on 01/24/2025 17:45:06
--- NOTE | ~2025-01-24 | CT_ITS ---
CLINICAL HISTORY: Acute renal insufficiency. Creatinine elevated CT abdomen and pelvis without IV contrast. COMPARISON: None FINDINGS: Layering atelectasis along the posterior lower lobes. Atherosclerotic plaque present within the partially visualized RCA. Normal gallbladder. Liver is enlarged with right lobe measuring 20.5 cm. Normal spleen. Normal pancreas. Normal adrenal glands. Left renal cystic lesion measuring 3.4 cm. No hydronephrosis or hydroureter bilaterally. No renal or ureteral calculus. Diminutive appendix. [id number] colonic stool burden. No bowel obstruction. No mesenteric or retroperitoneal lymphadenopathy. Moderate aortoiliac atherosclerotic vascular calcifications. Urinary bladder is unremarkable given degree of distention. No adnexal mass. Small fat containing umbilical hernia. Mild to moderate spondylosis. No acute fracture or suspicious bone lesion. IMPRESSION: 1. No cause for patient's symptoms identified. No evidence of renal obstruction. No renal or ureteral calculus bilaterally. 2. Left renal cystic lesion measuring 3.4 cm. 3. Coronary artery atherosclerosis. This document has been electronically signed by: Luiz Pham MD on 01/24/2025 17:44:53
--- NOTE | ~2025-01-24 | XR_ITS ---
EXAMINATION: XR CHEST CLINICAL INFORMATION: pain COMPARISON: November 26, 2023. TECHNIQUE: Frontal view of the chest was obtained. FINDINGS: Pulmonary reticular pattern. Linear opacities in the right lower hemithorax. No consolidation pleural effusion or pneumothorax. Cardiomediastinal silhouette size is prominent, unchanged. Calcified plaque thoracic aortic arch. Multilevel thoracic spondylosis. Degenerative changes in the acromion clavicular joints, bilaterally. XR/XR chest 1V IMPRESSION: Cardiomegaly versus pericardial effusion. Mild interstitial edema in the correct clinical settings. Electronically signed by: Taras Fischer MD 01/24/2025 01:33 PM EDT
--- NOTE | 2025-01-24 12:50 | ECG_ITS ---
Test Reason : cp Blood Pressure : */* mmHG Vent. Rate : 44 BPM Atrial Rate : 44 BPM P-R Int : 184 ms QRS Dur : 84 ms QT Int : 460 ms P-R-T Axes : 38 -9 135 degrees QTcB Int : 393 ms Marked sinus bradycardia Left ventricular hypertrophy with repolarization abnormality ( R in aVL , Sokolow-Olivares , [place] product , Romhilt-Parikh ) Abnormal ECG When compared with ECG of 28-Nov-2023 12:50, T wave inversion less evident in Anterior leads Referred By: Generic ED Physician Electronically Signed By: SONIDO JOHNSON MD
--- NOTE | 2025-01-24 13:04 | ED_ITS ---
HPI - General Adult General Chief complaint: General Medical Stated complaint: Weakness, Chest Pain, High Blood Pressure, Ab Pain Time Seen by Provider: 01/24/25 13:17 Related Data Home Medications ?Medication ?Instructions ?Recorded ?Confirmed ezetimibe 10 mg tablet 1 tab PO DAILY 02/23/21 11/26/23 fluticasone propionate 50 2 spray intranasal DAILY 02/23/21 11/26/23 mcg/actuation nasal spray,suspension levothyroxine 50 mcg tablet 1 tab PO DAILY 02/23/21 11/26/23 montelukast 10 mg tablet 1 tab PO DAILY 02/23/21 11/26/23 omeprazole 20 mg capsule,delayed 1 cap PO DAILY 02/23/21 11/26/23 release timolol maleate 0.5 % eye drops 1 drp ophthalmic-Left QAM 02/23/21 11/26/23 hydrocodone 5 mg-acetaminophen 325 1 tab PO QID PRN Pain 03/08/21 11/26/23 mg tablet calcium 500 mg (as 1 tab PO DAILY 11/26/23 11/26/23 carbonate)-vitamin D3 10 mcg (400 unit) tablet (Calcium 500 + D) cholecalciferol (vitamin D3) 50 50 mcg PO DAILY 11/26/23 11/26/23 mcg (2,000 unit) capsule (Vitamin D3) diphenhydramine HCl 50 mg capsule 50 mg PO DAILY PRN Itching 11/26/23 11/26/23 (Banophen) fluticasone fur. 200 mcg-umeclid 1 ea inhalation DAILY 11/26/23 11/26/23 62.5 mcg-vilant 25 mcg inhalat.powder (Trelegy Ellipta) losartan 100 mg tablet 100 mg PO DAILY 11/26/23 11/26/23 Previous Rx's ?Medication ?Instructions ?Recorded amlodipine 5 mg tablet 5 mg PO DAILY #30 tabs 11/28/23 hydrochlorothiazide 25 mg tablet 25 mg PO DAILY #30 tabs 11/28/23 psyllium (Hydrocil Instant oral 1 packet PO DAILY #30 ea 11/28/23 packet) cyclobenzaprine 5 mg tablet 5 mg PO TID PRN muscle spasm 7 01/02/24 days #21 tabs Allergies Allergy/AdvReac Type Severity Reaction Status Date / Time oxycodone [From PERCOCET] Allergy Mild UNKNOWN Verified 01/24/25 13:03 pregabalin [From LYRICA] Allergy Mild UNKNOWN Verified 01/24/25 13:03 Sulfa (Sulfonamide Allergy Unknown HIVES Verified 01/24/25 13:03 Antibiotics) [SULFA(SULFONAMIDE ANTIBIOTICS)] [facility] Past Medical History Medical History Sinusitis Joint pain Depression COVID-19 vaccine series completed Hx of chest pain Back pain Headache Hypertension Spondylolysis Arthritis Asthma Hypothyroid HLD (hyperlipidemia) GERD (gastroesophageal reflux disease) Surgical History Hx of cardiac catheterization History of nasal surgery History of esophagogastroduodenoscopy (EGD) Hx of colonoscopy History of hysterectomy Social History Social History Household Members: None Housing: Apartment Are you a primary livestock caretaker to a significant other at home: No Do you presently have visiting nurse or other home services: No Alcohol intake: current Alcohol intake frequency: holidays/special occasions only Patient Tobacco Use Status: Former Tobacco user Tobacco use type: Cigarette Years Smoked: 20 Substance Use Type: Marijuana Advance Directives: Yes Advance Directives Information Provided: Yes Advance Directives on File: No Advance Directives Date on File: 02/23/21 service: No Physical Exam ED Vital Signs: Vital Signs - 24 hr 01/24/25 12:59 Temperature 97.7 F Pulse Rate 47 L Respiratory Rate 18 Blood Pressure 113/43 L Pulse Oximetry 99 Oxygen Delivery Method Room Air BMI result Body Mass Index 22.3 Course Course Course Narrative: This is a rapid medical exam performed by Nicole Singh PA-C. The patient was an 89-year-old female with a history of hypertension, hypothyroidism, GERD who presents with multiple complaints. Patient states she is having abdominal discomfort, nausea, weakness and left chest pain that radiates to the axilla since Friday. Her symptoms are intermittent. We will be screening basic labs, cardiac enzyme, urinalysis, chest x-ray EKG and a viral panel. The patient was stable and can return to the waiting room pending her full medical assessment. Medical Decision Making Lab Data 01/24/25 13:10 01/24/25 13:10 Labs: Lab Results 01/24/25 Range/Units 13:10 WBC 10.6 (4.8-10.8) X10*3/uL RBC 4.28 (4.20-5.50) X10*6/uL Hgb 12.1 (12.0-16.0) g/dl Hct 35.8 L (37.0-47.0) % MCV 83.6 (80.0-98.0) fL MCH 28.3 (27.0-33.0) pg MCHC 33.8 (31.0-35.0) g/dl RDW 14.4 (11.0-16.0) % Plt Count 190 (160-400) X10*3/uL MPV 10.8 (9.4-12.3) fL Immature Gran % (Auto) 0.5 H (0.0-0.4) % Neut % (Auto) 66.6 (45-73) % Lymph % (Auto) 24.4 (20-40) % Morris % (Auto) 5.7 (2-11) % Eos % (Auto) 2.4 (0-4) % Baso % (Auto) 0.4 (0-2) % Lymph # (Auto) 2.6 (1.2-4.9) X10*3/uL Morris # (Auto) 0.6 (0.1-1.2) X10*3/uL Eos # (Auto) 0.3 (0.0-0.4) X10*3/uL Baso # (Auto) 0.0 (0.0-0.2) X10*3/uL Abs Immat Gran (auto) 0.05 H (0.00-0.03) X10*3/uL Absolute Neuts (auto) 7.1 (2.0-8.3) x10*3/uL Absolute Nucleated RBC 0.000 (0.0-0.012) X10*3/uL Nucleated RBC % (auto) 0.0 (0.0-0.2) /100WBC Sodium 142 (135-145) mmol/L Potassium 3.6 (3.3-5.1) mmol/L Chloride 111 H (96-108) mmol/L Carbon Dioxide 23 (22-29) mmol/L Anion Gap 12 (12-20) BUN 37 H (9-16) mg/dL Creatinine 2.08 H (0.5-1.4) mg/dL Estim Creat Clear Calc 15.8 Estimated GFR 22 Random Glucose 114 (60-115) mg/dL Calcium 9.5 (8.4-10.2) mg/dL Magnesium 1.9 (1.6-2.6) mg/dL Total Bilirubin 0.5 (0.0-1.0) mg/dL AST 55 H (5-31) U/L ALT 38 H (0-31) U/L Alkaline Phosphatase 52 (39-117) U/L Troponin I High Sens 15.2 (<3.5-17.0) ng/L B-Natriuretic Peptide 236 H (<100) pg/mL Total Protein 7.2 (6.5-8.0) g/dL Albumin 4.0 (3.5-5.0) g/dL Lipase 28 (8-78) U/L Influenza Type A (PCR) NEGATIVE (Negative) Influenza Type B (PCR) NEGATIVE (Negative) RSV RNA Qual (PCR) NEGATIVE (Negative) SARS-CoV-2 RNA (RT-PCR) NEGATIVE (Negative) Discharge Plan Discharge Clinical Impression: Acute renal insufficiency Patient Disposition: Admitted As Inpatient
[2025-01-24 13:18] LABS: MANUAL DIFF FLAG NO
[2025-01-24 13:19] LABS: Basophils Percent Auto 0.4 % (0-2); Eosinophils Absolute Auto 0.3 X10*3/uL (0.0-0.4); Eosinophils Percent Auto 2.4 % (0-4); Hematocrit 35.8 % (37.0-47.0); Hemoglobin 12.1 g/dl (12.0-16.0); Imm Gran Abs Auto 0.05 X10*3/uL (0.00-0.03); Imm Gran Pct Auto 0.5 % (0.0-0.4); Lymphocytes Absolute Auto 2.6 X10*3/uL (1.2-4.9); Lymphocytes Percent Auto 24.4 % (20-40); Mean Corpuscular HGB Conc 33.8 g/dl (31.0-35.0); Mean Corpuscular Hemoglobin 28.3 pg (27.0-33.0); Mean Corpuscular Volume 83.6 fL (80.0-98.0); Mean Platelet Volume 10.8 fL (9.4-12.3); Monocytes Absolute Auto 0.6 X10*3/uL (0.1-1.2); Monocytes Percent Auto 5.7 % (2-11); Neutrophils Absolute Auto 7.1 x10*3/uL (2.0-8.3); Neutrophils Percent Auto 66.6 % (45-73); Platelet Count 190 X10*3/uL (160-400); Red Blood Count 4.28 X10*6/uL (4.20-5.50); Red Cell Distribution Width 14.4 % (11.0-16.0); White Blood Count 10.6 X10*3/uL (4.8-10.8)
[2025-01-24 13:33] LABS: Alanine Aminotransferase 38 U/L (0-31); Alkaline Phosphatase 52 U/L (39-117); Anion Gap 12 (12-20); Aspartate Amino Transferase 55 U/L (5-31); Bilirubin Total 0.5 mg/dL (0.0-1.0); Blood Urea Nitrogen 37 mg/dL (9-16); Calcium 9.5 mg/dL (8.4-10.2); Carbon Dioxide 23 mmol/L (22-29); Chloride 111 mmol/L (96-108); Creatinine Clr Calc Pharmacy 15.8; Estimated Glomerular Filt Rate 22; Glucose Random 114 mg/dL (60-115); Lipase 28 U/L (8-78); Magnesium 1.9 mg/dL (1.6-2.6); Potassium 3.6 mmol/L (3.3-5.1); Sodium 142 mmol/L (135-145); Total Protein 7.2 g/dL (6.5-8.0)
[2025-01-24 13:41] LABS: Troponin-I High Sensitivity 15.2 ng/L (<3.5-17.0)
[2025-01-24 13:57] LABS: Influenza A PCR NEGATIVE (Negative); Influenza B PCR NEGATIVE (Negative); Resp Syncy Virus RNA Qual PCR NEGATIVE (Negative); SARS COV2 PCR INHOUSE NEGATIVE (Negative)
--- NOTE | 2025-01-24 14:06 | ED.GENADULT ---
HPI - General Adult General Chief complaint: General Medical Stated complaint: Weakness, Chest Pain, High Blood Pressure, Ab Pain Time Seen by Provider: 01/24/25 13:17 History of Present Illness HPI narrative: Patient is an 89-year-old female presents today with having chest pain and generalized malaise the chest pain is on the left side. It goes to the shoulder. It is not associated with shortness of breath or diaphoresis. Feels generally weak very tired not quite herself had been eating and drinking less than usual. Has a cough but it is baseline. Patient denies any worsening in the cough has a history of asthma in the past. Normally takes Trelegy. Patient denies any history of congestive heart failure no leg swelling. Had a cardiac catheterization done at [facility] in 2020. Related Data Home Medications ?Medication ?Instructions ?Recorded ?Confirmed ezetimibe 10 mg tablet 1 tab PO DAILY 02/23/21 11/26/23 fluticasone propionate 50 2 spray intranasal DAILY 02/23/21 11/26/23 mcg/actuation nasal spray,suspension levothyroxine 50 mcg tablet 1 tab PO DAILY 02/23/21 11/26/23 montelukast 10 mg tablet 1 tab PO DAILY 02/23/21 11/26/23 omeprazole 20 mg capsule,delayed 1 cap PO DAILY 02/23/21 11/26/23 release timolol maleate 0.5 % eye drops 1 drp ophthalmic-Left QAM 02/23/21 11/26/23 hydrocodone 5 mg-acetaminophen 325 1 tab PO QID PRN Pain 03/08/21 11/26/23 mg tablet calcium 500 mg (as 1 tab PO DAILY 11/26/23 11/26/23 carbonate)-vitamin D3 10 mcg (400 unit) tablet (Calcium 500 + D) cholecalciferol (vitamin D3) 50 50 mcg PO DAILY 11/26/23 11/26/23 mcg (2,000 unit) capsule (Vitamin D3) diphenhydramine HCl 50 mg capsule 50 mg PO DAILY PRN Itching 11/26/23 11/26/23 (Banophen) fluticasone fur. 200 mcg-umeclid 1 ea inhalation DAILY 11/26/23 11/26/23 62.5 mcg-vilant 25 mcg inhalat.powder (Trelegy Ellipta) losartan 100 mg tablet 100 mg PO DAILY 11/26/23 11/26/23 Previous Rx's ?Medication ?Instructions ?Recorded amlodipine 5 mg tablet 5 mg PO DAILY #30 tabs 11/28/23 hydrochlorothiazide 25 mg tablet 25 mg PO DAILY #30 tabs 11/28/23 psyllium (Hydrocil Instant oral 1 packet PO DAILY #30 ea 11/28/23 packet) cyclobenzaprine 5 mg tablet 5 mg PO TID PRN muscle spasm 7 01/02/24 days #21 tabs Allergies Allergy/AdvReac Type Severity Reaction Status Date / Time oxycodone [From PERCOCET] Allergy Mild UNKNOWN Verified 01/24/25 13:03 pregabalin [From LYRICA] Allergy Mild UNKNOWN Verified 01/24/25 13:03 Sulfa (Sulfonamide Allergy Unknown HIVES Verified 01/24/25 13:03 Antibiotics) [SULFA(SULFONAMIDE ANTIBIOTICS)] Review of Systems Review of Systems: Positive generalized malaise weakness Yes all other systems are reviewed and are negative PMFSH Past Medical History Attestation statement: The following information was validated with the patient. Medical History Sinusitis Joint pain Depression COVID-19 vaccine series completed Hx of chest pain Back pain Headache Hypertension Spondylolysis Arthritis Asthma Hypothyroid HLD (hyperlipidemia) GERD (gastroesophageal reflux disease) Surgical History Hx of cardiac catheterization History of nasal surgery History of esophagogastroduodenoscopy (EGD) Hx of colonoscopy History of hysterectomy Social History Social History Household Members: None Housing: Apartment Are you a primary home care physical therapist to a significant other at home: No Do you presently have visiting nurse or other home services: No Alcohol intake: current Alcohol intake frequency: holidays/special occasions only Patient Tobacco Use Status: Former Tobacco user Tobacco use type: Cigarette Years Smoked: 20 Substance Use Type: Marijuana Advance Directives: Yes Advance Directives Information Provided: Yes Advance Directives on File: No Advance Directives Date on File: 02/23/21 service: No Physical Exam ED Vital Signs: Vital Signs - 24 hr 01/24/25 12:59 Temperature 97.7 F Pulse Rate 47 L Respiratory Rate 18 Blood Pressure 113/43 L Pulse Oximetry 99 Oxygen Delivery Method Room Air BMI result Body Mass Index 22.3 Appearance: Alert. Oriented X3. No acute distress. Eyes: Pupils equal, round and reactive to light. ENT: Pharynx normal. Neck: Normal inspection. Neck supple. No lymph nodes noted. No crepitus CVS: Normal heart rate and rhythm. Pulses normal. Normal S1 and S2 Respiratory: No respiratory distress. Breath sounds normal. No Wheezing. No rales Abdomen: Soft and nontender. No rigidity. No distention. good BS x4 Skin: Skin warm and dry. Normal skin color. Normal skin turgor. Extremities: No lower extremity edema. Neurovascular intact to all extremities. No Lacerations. No Rash Neuro: Oriented X 3. No motor deficit. No sensory deficit. Moving all extermities. No slurred speech Medical Decision Making Medical Decision Making [facility] Narrative: My interpretation patient's EKG showed a sinus rhythm heart rate is 45 GA QRS QTC normal no acute ST segment elevation. Patient's troponin was negative. I reviewed patient's old records including previous catheterization report from [facility] which showed no large vessel occlusion. Patient's COVID flu RSV were all negative. Troponin was negative. Patient's labs did show an elevated creatinine of 2 this is new. Will admit patient for further evaluation IV fluids started. Patient denies any abdominal pain. No difficulty urinating less likely secondary to post renal issues nevertheless a CT was ordered. Differential Diagnosis Differential Diagnoses: The differential diagnosis associated with the presentation includes Acute renal failure, dehydration, weakness, flu, COVID, RSV, pneumonia, UTI Admission/Observation Consideration of admission/observation: Escalation of care including admission/observation considered Consult Healthcare Provider Management of the patient was discussed with: Hospitalist Lab Data [facility] Lab Attestation statement: I reviewed the patient's lab results. 01/24/25 13:10 01/24/25 13:10 Labs: Lab Results 01/24/25 Range/Units 13:10 WBC 10.6 (4.8-10.8) X10*3/uL RBC 4.28 (4.20-5.50) X10*6/uL Hgb 12.1 (12.0-16.0) g/dl Hct 35.8 L (37.0-47.0) % MCV 83.6 (80.0-98.0) fL MCH 28.3 (27.0-33.0) pg MCHC 33.8 (31.0-35.0) g/dl RDW 14.4 (11.0-16.0) % Plt Count 190 (160-400) X10*3/uL MPV 10.8 (9.4-12.3) fL Immature Gran % (Auto) 0.5 H (0.0-0.4) % Neut % (Auto) 66.6 (45-73) % Lymph % (Auto) 24.4 (20-40) % Orange % (Auto) 5.7 (2-11) % Eos % (Auto) 2.4 (0-4) % Baso % (Auto) 0.4 (0-2) % Lymph # (Auto) 2.6 (1.2-4.9) X10*3/uL Orange # (Auto) 0.6 (0.1-1.2) X10*3/uL Eos # (Auto) 0.3 (0.0-0.4) X10*3/uL Baso # (Auto) 0.0 (0.0-0.2) X10*3/uL Abs Immat Gran (auto) 0.05 H (0.00-0.03) X10*3/uL Absolute Neuts (auto) 7.1 (2.0-8.3) x10*3/uL Absolute Nucleated RBC 0.000 (0.0-0.012) X10*3/uL Nucleated RBC % (auto) 0.0 (0.0-0.2) /100WBC Sodium 142 (135-145) mmol/L Potassium 3.6 (3.3-5.1) mmol/L Chloride 111 H (96-108) mmol/L Carbon Dioxide 23 (22-29) mmol/L Anion Gap 12 (12-20) BUN 37 H (9-16) mg/dL Creatinine 2.08 H (0.5-1.4) mg/dL Estim Creat Clear Calc 15.8 Estimated GFR 22 Random Glucose 114 (60-115) mg/dL Calcium 9.5 (8.4-10.2) mg/dL Magnesium 1.9 (1.6-2.6) mg/dL Total Bilirubin 0.5 (0.0-1.0) mg/dL AST 55 H (5-31) U/L ALT 38 H (0-31) U/L Alkaline Phosphatase 52 (39-117) U/L Troponin I High Sens 15.2 (<3.5-17.0) ng/L Total Protein 7.2 (6.5-8.0) g/dL Albumin 4.0 (3.5-5.0) g/dL Lipase 28 (8-78) U/L Influenza Type A (PCR) NEGATIVE (Negative) Influenza Type B (PCR) NEGATIVE (Negative) RSV RNA Qual (PCR) NEGATIVE (Negative) SARS-CoV-2 RNA (RT-PCR) NEGATIVE (Negative) Independent Interpretation I performed an independent interpretation of an: EKG (My interpretation patient's EKG as above) and Plain X-Ray (My interpretation of the chest x-ray was grossly negative) Radiology Impression Discussion of test interpretation with radiology: I have reviewed the radiologist's reading. Independent Historian Clinical information obtained from an independent historian. History obtained from or confirmed by: Other (Additional history obtained from family) External Record Review External record reviewed: Inpatient record and Office record Chronic Conditions Asthma Discharge Plan Discharge Clinical Impression: Acute renal insufficiency Patient Disposition: Admitted As Inpatient Prescriptions: No Action levothyroxine 50 mcg tablet 1 tab PO DAILY omeprazole 20 mg capsule,delayed release(DR/EC) 1 cap PO DAILY montelukast 10 mg tablet 1 tab PO DAILY timolol maleate 0.5 % drops 1 drp ophthalmic-Left QAM fluticasone propionate 50 mcg/actuation spray,suspension 2 spray intranasal DAILY ezetimibe 10 mg tablet 1 tab PO DAILY cyclobenzaprine 5 mg tablet 5 mg PO TID PRN (Reason: muscle spasm) 7 Days Qty: 21 0RF Trelegy Ellipta 200-62.5-25 mcg blister with device 1 ea inhalation DAILY diphenhydramine HCl [Banophen] 50 mg Capsule 50 mg PO DAILY PRN (Reason: Itching) losartan 100 mg tablet 100 mg PO DAILY calcium carbonate-vitamin D3 [Calcium 500 + D] 500 mg-10 mcg (400 unit) Tablet 1 tab PO DAILY cholecalciferol (vitamin D3) [Vitamin D3] 50 mcg (2,000 unit) Capsule 50 mcg PO DAILY Hydrocil Instant Packet 1 packet PO DAILY Qty: 30 0RF amlodipine 5 mg Tablet 5 mg PO DAILY Qty: 30 0RF Protocol: Hold for SBP< HOLD for SBP < : 90 hydrochlorothiazide 25 mg Tablet 25 mg PO DAILY Qty: 30 0RF Protocol: Hold for SBP< HOLD for SBP < : 90 hydrocodone-acetaminophen 5-325 mg tablet 1 tab PO QID PRN (Reason: Pain) Print Language: Swazi
--- NOTE | 2025-01-24 14:42 | P.HPHOSP_ITS ---
History of Present Illness Date of Service: 01/24/25 Attending physician on admission: Desmond Horton Chief Complaint: chest pain 89-year-old female with history of GERD, hyperlipidemia, hypertension, hypothyroidism, chronic low back pain with right-sided sciatica, post herpetic neuralgia, osteopenia presented to the ED earlier today for evaluation of chest pain. She states she has longstanding lower left-sided chest pain that has been intermittent over the last few months and has been more frequent over the last 2 days. She states she feels she had a bubble in her chest as if she needs to burp. She rates this as a 3/10 currently but occasionally gets sharp pains of pain rated a 10/10. She feels this radiate to left arm and through the chest to the back. Denies any improvement or worsening of pain with changes in position. She denies any associated dyspnea, orthopnea, palpitations. She does report positional lightheadedness and nausea but no vomiting. She states the symptoms have also been ongoing for months but worsening since Friday. Feels the symptoms are more continuous. She is also reporting epigastric pain that worsens when she is hungry and worsens after she has eaten. As a result, she has not been eating as much but states her fluid intake has not worsened. She states she drinks about 2 glasses of water every 3 hours. No fevers, chills, diarrhea. Since arrival, patient has been bradycardic in the 40s (75 @PCP office 01/06/25) but blood pressures stable. Hematology studies unremarkable. Creatinine 2.08, baseline around 1.2. Electrolyte levels normal except for chloride 111. AST 55, ALT 38. Troponin 15.2, BNP 238. Negative for COVID, RSV, flu . CXR shows possible cardiomegaly vs pericardial effusion vs mild interstitial edema. In the ED, has received normal saline. Review of Systems 2 Review of Systems: Yes all other systems are reviewed and are negative [facility] Medical History Sinusitis Joint pain Depression COVID-19 vaccine series completed Hx of chest pain Back pain Headache Hypertension Spondylolysis Arthritis Asthma Hypothyroid HLD (hyperlipidemia) GERD (gastroesophageal reflux disease) Surgical History Hx of cardiac catheterization History of nasal surgery History of esophagogastroduodenoscopy (EGD) Hx of colonoscopy History of hysterectomy Social History Household Members: None Housing: Apartment Are you a primary after school caregiver to a significant other at home: No Do you presently have visiting nurse or other home services: No Alcohol intake: current Alcohol intake frequency: holidays/special occasions only Patient Tobacco Use Status: Former Tobacco user Tobacco use type: Cigarette Years Smoked: 20 Smoked in Last 30 Days: No Use of substances other than those prescribed or required for medical reasons: No Substance Use Type: Marijuana Advance Directives: Yes Advance Directives Information Provided: Yes Advance Directives on File: No Advance Directives Date on File: 02/23/21 Nutrition Risks: No Nutritional Risk service: No Meds Allergies Allergy/AdvReac Type Severity Reaction Status Date / Time oxycodone [From PERCOCET] Allergy Mild UNKNOWN Verified 01/24/25 13:03 pregabalin [From LYRICA] Allergy Mild UNKNOWN Verified 01/24/25 13:03 Sulfa (Sulfonamide Allergy Unknown HIVES Verified 01/24/25 13:03 Antibiotics) [SULFA(SULFONAMIDE ANTIBIOTICS)] Active Medications: Current Medications Sodium Chloride (Ns) 500 mls @ 999 mls/hr IV .Q31M ELVIA Stop: 01/24/25 14:45 Home Medications ?Medication ?Instructions ?Recorded ?Confirmed ?Last Taken ?Type ezetimibe 10 mg tablet 1 tab PO DAILY 02/23/21 01/24/25 11/25/23 History levothyroxine 50 mcg tablet 1 tab PO DAILY 02/23/21 01/24/25 11/25/23 History montelukast 10 mg tablet 1 tab PO DAILY 02/23/21 01/24/25 11/25/23 History omeprazole 20 mg capsule,delayed 2 cap PO DAILY 02/23/21 01/24/25 11/25/23 History release timolol maleate 0.5 % eye drops 1 drp ophthalmic-Left DAILY 02/23/21 01/24/25 11/25/23 History hydrocodone 5 mg-acetaminophen 325 1 tab PO Q6H PRN Severe Pain 03/08/21 01/24/25 Unknown History mg tablet (Scale Score 7-10) cholecalciferol (vitamin D3) 50 50 mcg PO DAILY 11/26/23 01/24/25 Unknown History mcg (2,000 unit) capsule (Vitamin D3) fluticasone fur. 200 mcg-umeclid 1 ea inhalation DAILY 11/26/23 01/24/25 11/25/23 History 62.5 mcg-vilant 25 mcg inhalat.powder (Trelegy Ellipta) amlodipine 10 mg tablet 10 mg PO DAILY 01/24/25 01/24/25 Unknown History cetirizine 10 mg tablet 10 mg PO DAILY PRN 01/24/25 01/24/25 Unknown History allergies/itching clonidine HCl 0.1 mg tablet 0.2 mg PO BID 01/24/25 01/24/25 Unknown History losartan 100 1 tab PO DAILY 01/24/25 01/24/25 Unknown History mg-hydrochlorothiazide 25 mg tablet rosuvastatin 40 mg tablet 40 mg PO DAILY 01/24/25 01/24/25 Unknown History Physical Exam 2 Vital Signs and Narrative: Vital Signs: Last Vital Signs Temp 97.7 F 01/24/25 12:59 Pulse 47 L 01/24/25 12:59 Resp 18 01/24/25 12:59 BP 113/43 L 01/24/25 12:59 Pulse Ox 99 01/24/25 12:59 O2 Del Method Room Air 01/24/25 12:59 BMI result Body Mass Index 22.3 Constitutional - Awake and Alert, No apparent distress Eyes - PERRLA, EOMI Cardiovascular - S1S2, RRR, No edema Chest - reproducible ttp left lower chest Respiratory - Normal lung expansion, Normal respiratory effort, No respiratory distress, CTA bilaterally Gastrointestinal - epigastric. ND; +BS; No rebound or guarding Extremities - no calf tenderness bilaterally, no swelling Skin - Warm/Dry Neurological - Alert & oriented x3 Psychological - Appropriate affect Results Labs 01/24/25 13:10 01/24/25 13:10 Labs: Laboratory Results - last 24 hr 01/24/25 13:10 MCV 83.6 MCH 28.3 MCHC 33.8 RDW 14.4 Plt Count 190 MPV 10.8 Immature Gran % (Auto) 0.5 H Neut % (Auto) 66.6 Lymph % (Auto) 24.4 [place] % (Auto) 5.7 Eos % (Auto) 2.4 Baso % (Auto) 0.4 Lymph # (Auto) 2.6 [place] # (Auto) 0.6 Eos # (Auto) 0.3 Baso # (Auto) 0.0 Abs Immat Gran (auto) 0.05 H Absolute Neuts (auto) 7.1 Absolute Nucleated RBC 0.000 Nucleated RBC % (auto) 0.0 Anion Gap 12 Estim Creat Clear Calc 15.8 Estimated GFR 22 Random Glucose 114 Calcium 9.5 Magnesium 1.9 Total Bilirubin 0.5 AST 55 H ALT 38 H Alkaline Phosphatase 52 Total Protein 7.2 Albumin 4.0 Lipase 28 Influenza Type A (PCR) NEGATIVE Influenza Type B (PCR) NEGATIVE RSV RNA Qual (PCR) NEGATIVE SARS-CoV-2 RNA (RT-PCR) NEGATIVE Imaging Radiologist's Impressions: Impressions Chest X-Ray 01/24/25 13:20 IMPRESSION: Cardiomegaly versus pericardial effusion. Mild interstitial edema in the correct clinical settings. Electronically signed by: Taras Fischer MD 01/24/2025 01:33 PM EDT RP Assessment and Plan (1) Acute renal insufficiency: Status: Acute Plan 89-year-old female with history of GERD, hyperlipidemia, hypertension, hypothyroidism, chronic low back pain with right-sided sciatica, post herpetic neuralgia, osteopenia admitted for further management of KILO Acute kidney injury- suspect prerenal CKD stage 3 at baseline urine studies pending IVF Follow I&O Hold nephrotoxins Follow renal funtion/lytes Acute bradycadia has had intermittent episodes in past, had been in the 70s at pcp earlier this month, now sustaining 40s EKG without any blocks. Not on any bb or ccb cardiology consult Positional lightheadedness ?symptomatic bradycardia vs orthostatic hypotension Check orthostatic VS IVF Chronic chest pain/LUQ pain/epigastric pain atypical in nature. Trop wnl, EKG without acute ischemic changes ?gastric in etiology CT abd.pelvis pending increase prilosec, add carafate outpt follow up Hypothyroidism Levothyroxine Hypertension Hold losartan, hydrochlorothiazide. Continue amlodipine Monitor blood pressures Chronic low back pain with sciatica Continue home meds Unspecified asthma No exacerbation Continue maintenance inhalers, albuterol p.r.n. GERD PPI DVT prophylaxis-Lovenox Full code Patient requires inpatient stay at least 2 midnights for management of acute kidney injury requiring IV fluid resuscitation and close monitoring of renal function electrolyte Levels Quality Stroke Does the patient have a stroke diagnosis?: No VTE Prior VTE?: No VTE Risk Level:: Medical - moderate - high VTE Device Contraindication: Treatment Not Indicated VTE Drug Contraindication: N/A - Med Ordered
[2025-01-24 15:08] LABS: B Type Natriuretic Peptide 236 pg/mL (<100)
[2025-01-24] MEDS: 0.9 % Sodium Chloride 500 ML 999 ML IV (15:39)
[2025-01-24 16:09] LABS: TSH reflex Free T4 3.46 uIU/mL (0.32-4.0)
--- NOTE | 2025-01-24 16:09 | MHC.EDTECH ---
This pct assumed care of Patient at 1500 ,Orthostatics vitals taken ,1600 vitals taken ,Patient was assisted unto bedside commode ,urine sample collected and sent to lab ,Patient belongings list done ,Patient son at bedside .Call hutton within Pt reach ,All safety measure in Place .
[2025-01-24 16:16] LABS: Appearance Urine Clear; Color Urine Yellow; Glucose Urine UA Negative (Negative); Leukocyte Esterase Urine Small (1+) (Negative); Nitrite Urine Negative (Negative); UMIC TRIGGER UACC YES; Urine Blood Trace (Negative); Urine Ketones Negative (Negative); Urine Protein 30 (1+) mg/dL (Neg-Trace)
[2025-01-24 16:23] LABS: Bacteria Urine None Seen (None Seen); RBC Urine 0-2 /HPF (0-2); Squamous Epithelial Cell Urine 0-2 /HPF (0-2); UACC Culture Trigger YES; WBC Urine 0-5 /HPF (0-5)
[2025-01-24] MEDS: Enoxaparin Sodium 30 MG/0.3 ML SYRINGE SUBCUT (16:36)
[2025-01-24] MEDS: Sucralfate 1 GM TABLET PO ×2 (16:37→21:28)
--- NOTE | 2025-01-24 16:38 | PHA.MEDREC ---
Addendum entered by Diogenes Peralta 01/24/25 16:47: reviewed Original Note: Pharmacy Consult ? Medication Reconciliation Pharmacy has completed the medication reconciliation. Spoke with patient to confirm medications. She confirmed she still uses hydrocodone w/ tylenol prn, timolol is in her left eye, and omeprazole is 2 caps daily. She reports cetirizine is prn and the clonidine was recently increased to 0.2 mg bid so she takes 2 tabs of the 0.1 mg tabs bid. Patient said she took her medications last night.
--- NOTE | 2025-01-24 16:40 | PC.NURSE ---
a&ox4. 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 frequent PVCs noted. pt currently on RA w/o difficulty - no sob/wob noted. respirations even/unlabored. pt presents to the ED c/o left sided chest pain radiating to LUE and into upper back x 2 days. pt also reports epigastric pain that worsens s/p eating. labs/ekg obtained in triage. 20gIV placed in the right hand - IVF administered per provider order. pt currently pending to go to CT at this time. plan of care ongoing. call hutton placed within reach.
--- NOTE | 2025-01-24 18:00 | PC.NURSE ---
1:1 assist to the commode. pt urinated approx. 200cc of clear, pale yellow urine. pt assisted back into bed without difficulty. repositioned to comfort. call hutton placed within reach.
--- NOTE | 2025-01-24 18:38 | MHC.EDTECH ---
1800 rounding done ,vitals taken ,Patient was assisted with bed odell ,void ,care given ,Patient was set up with dinner ,Patient son continue to be at bedside ,NO apparent distress noted ,Plan of care continue .
[2025-01-24] MEDS: Omeprazole 40 MG CAPSULE.DR PO (19:06)
--- NOTE | 2025-01-24 19:10 | PC.NURSE ---
pt medicated per provider order. pt otherwise offers no acute complaints. 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 pt remains on RA w/o difficulty. no sob/wob noted. respirations even/unlabored. family bedside for support. plan of care ongoing. call hutton placed within reach.
[2025-01-24] MEDS: HYDROcodone Bit/Acetam 5/325 TABLET 1 TAB PO (21:28)
[2025-01-24] MEDS: 0.9 % Sodium Chloride Flush 3 ML SYRINGE IVFLUSH (23:38)
[2025-01-24] MEDS: Lactated Ringers 1,000 ML 100 ML IVCONT (23:38)
[2025-01-25] VITALS (10 sets, daily range): BP systolic 96–183; BP diastolic 49–94; PULSE 46–98; RESP 15–18; TEMP 36.5–37.3; O2SAT 97–100; BMI 21.5
--- NOTE | 2025-01-25 | ECG_ITS ---
Test Reason : bradycardia Blood Pressure : */* mmHG Vent. Rate : 60 BPM Atrial Rate : 60 BPM P-R Int : 184 ms QRS Dur : 92 ms QT Int : 446 ms P-R-T Axes : 64 -2 132 degrees QTcB Int : 446 ms Normal sinus rhythm Left ventricular hypertrophy with repolarization abnormality ( R in aVL , Sokolow-Olivares , [place] product , Romhilt-Parikh ) Abnormal ECG When compared with ECG of 24-Jan-2025 12:51, QT has lengthened Referred By: Suzi Keenan Electronically Signed By: SONIDO JOHNSON MD
[2025-01-25] MEDS: HYDROcodone Bit/Acetam 5/325 TABLET 1 TAB PO ×2 (04:50→19:52)
[2025-01-25] MEDS: Omeprazole 40 MG CAPSULE.DR PO ×2 (06:58→15:45)
[2025-01-25] MEDS: Sucralfate 1 GM TABLET PO ×4 (07:38→19:52)
[2025-01-25 07:56] LABS: Anion Gap 13 (12-20); Blood Urea Nitrogen 24 mg/dL (9-16); Calcium 9.8 mg/dL (8.4-10.2); Carbon Dioxide 21 mmol/L (22-29); Chloride 111 mmol/L (96-108); Creatinine Clr Calc Pharmacy 22.2; Estimated Glomerular Filt Rate 33; Glucose Random 100 mg/dL (60-115); Potassium 3.5 mmol/L (3.3-5.1); Sodium 141 mmol/L (135-145)
[2025-01-25] MEDS: Lactated Ringers 1,000 ML 100 ML IVCONT ×2 (08:37→18:02)
--- NOTE | 2025-01-25 08:38 | PC.NURSE ---
arrived at this time to the unit
[2025-01-25] MEDS: Cholecalciferol (Vitamin D3) 25 MCG TABLET 50 MCG PO (08:42)
[2025-01-25] MEDS: amLODIPine Besylate 10 MG TABLET PO (08:42)
[2025-01-25] MEDS: Montelukast Sodium 10 MG TABLET PO (08:42)
[2025-01-25] MEDS: Levothyroxine Sodium 50 MCG TABLET PO (08:43)
[2025-01-25] MEDS: Atorvastatin Calcium 80 MG TABLET PO (08:43)
[2025-01-25] MEDS: Ezetimibe 10 MG TABLET PO (08:43)
[2025-01-25] MEDS: cloNIDine HCL 0.2 MG TABLET PO (08:43)
--- NOTE | 2025-01-25 09:14 | P.CONCA_ITS ---
History of Present Illness History of Present Illness Date of Service: 01/25/25 Requesting physician: Suzi Keenan Consult reason: chest pain Chief complaint: chest pain Narrative: I was consulted to see [place] because of left-sided chest pain, sinus bradycardia. Patient was also noted to have mildly elevated BNP. Patient was 89-year-old female vague historian. Patient while I was interviewing said she was feeling dizzy lying down in bed feeling like the world was spinning. This is dizziness that brought her to the hospital in addition to the left-sided chest pain. She said this chest pain started about on Friday and has been on and off mostly on where she feels the Polka like chest pain in in the 4th to 5th intercostal space. Patient pointing towards the pain. Pain is not worse with deep breathing and coughing however he is worse when you press on it. Her EKG was nonischemic and troponins x2 have been negative. When she came in she was noted to have sinus bradycardia. She had no syncopal episodes at home. She was also noted to have acute kidney injury. She says that she was drinking enough water but not eating well as she was not feeling well. She denies any diarrhea. Denies any fever or chills at home. No orthopnea, PND, leg edema. Her BNP was also noted to be elevated to 140 range. Echocardiogram last year showed hypertensive heart disease LV EF of greater than 70% with elevated filling pressures by diastolic criteria. Review of Systems 2 Constitutional: Constitutional: Denies body ache(s), Denies chills, Denies fever(s), Reports headache(s) and Reports poor appetite Eyes: Eyes: Reports no additional eye complaints ENT: Reports dizziness and Reports headache(s) Cardiovascular: Cardiovascular: Denies leg edema, Denies lightheadedness, Denies Loss of Consciousness, Denies palpitations, Denies dyspnea and Reports other (Focal precordial chest pain) Respiratory: Respiratory: Reports no additional respiratory complaints and Denies dyspnea Gastrointestinal: Gastrointestinal: Reports no additional gastrointestinal complaints Genitourinary: Genitourinary: Reports no additional female genitourinary complaints Neurologic: Reports dizziness and Reports headache(s) Endocrine: Endocrine: Denies palpitations PMFSH Past Medical History Medical History Sinusitis Joint pain Depression COVID-19 vaccine series completed Hx of chest pain Back pain Headache Hypertension Spondylolysis Arthritis Asthma Hypothyroid HLD (hyperlipidemia) GERD (gastroesophageal reflux disease) Surgical History Surgical History Hx of cardiac catheterization History of nasal surgery History of esophagogastroduodenoscopy (EGD) Hx of colonoscopy History of hysterectomy Social History Social History Household Members: None Housing: Apartment Are you a primary senior care assistant to a significant other at home: No Do you presently have visiting nurse or other home services: No Alcohol intake: current Alcohol intake frequency: holidays/special occasions only Patient Tobacco Use Status: Former Tobacco user Tobacco use type: Cigarette Years Smoked: 20 Smoked in Last 30 Days: No Use of substances other than those prescribed or required for medical reasons: Yes Substance Use Type: Marijuana Do you feel safe in your current relationship?: No Current Relationship Advance Directives: Yes Advance Directives Information Provided: Yes Advance Directives on File: No Advance Directives Date on File: 02/23/21 Do you have a plan to hurt others: No Plan Recently lost weight without trying: No Nutrition Risks: No Nutritional Risk Patient : No : No Poor oral hygiene: No service: No Meds Allergies Allergy/AdvReac Type Severity Reaction Status Date / Time oxycodone [From PERCOCET] Allergy Mild UNKNOWN Verified 01/24/25 13:03 pregabalin [From LYRICA] Allergy Mild UNKNOWN Verified 01/24/25 13:03 Sulfa (Sulfonamide Allergy Unknown HIVES Verified 01/24/25 13:03 Antibiotics) [SULFA(SULFONAMIDE ANTIBIOTICS)] Active Medications: Current Medications Acetaminophen (Acetaminophen 325 Mg Tablet) 650 mg PO Q6H PRN PRN Reason: Pain, Mild 1-3,fever,headache Hydrocodone Bitart/Acetaminophen (Hydrocodone Bit/Acetam 5/325 Tablet) 1 tab PO Q6H PRN PRN Reason: Severe Pain (Scale Score 7-10) Last Admin: 01/25/25 04:50 Dose: 1 tab Amlodipine Besylate (Amlodipine Besylate 10 Mg Tablet) 10 mg PO DAILY [facility]; Protocol Last Admin: 01/25/25 08:42 Dose: 10 mg Atorvastatin Calcium (Atorvastatin Calcium 80 Mg Tablet) 80 mg PO DAILY [facility] Last Admin: 01/25/25 08:43 Dose: 80 mg Calcium Carbonate (Calcium Carbonate 750 Mg Tab.Chew) 750 mg PO Q4H PRN PRN Reason: Heartburn Clonidine HCl (Clonidine Hcl 0.2 Mg Tablet) 0.2 mg PO BID [facility]; Protocol Last Admin: 01/25/25 08:43 Dose: 0.2 mg Ezetimibe (Ezetimibe 10 Mg Tablet) 10 mg PO DAILY [facility] Last Admin: 01/25/25 08:43 Dose: 10 mg Enoxaparin Sodium (Enoxaparin Sodium 30 Mg/0.3 Ml Syringe) 30 mg SUBCUT Q24H [facility] Last Admin: 01/24/25 16:36 Dose: 30 mg Fluticasone/Umeclidinium/Vilanterol (Fluticasone/Umeclidinium/Vilanterol 200/62.5/25 Blst.W.Dev) 1 puff INHALE RDAILY [facility] Lactated Ringer's (Lr) 1,000 mls @ 100 mls/hr IVCONT .Q10H [facility] Last Admin: 01/25/25 08:37 Dose: 100 mls/hr Levothyroxine Sodium (Levothyroxine Sodium 50 Mcg Tablet) 50 mcg PO DAILY [facility] Last Admin: 01/25/25 08:43 Dose: 50 mcg Loratadine (Loratadine 10 Mg Tablet) 10 mg PO DAILY PRN PRN Reason: allergies/itching Magnesium Hydroxide (Milk Of Magnesia 30 Ml Oral.Susp) 30 ml PO DAILY PRN PRN Reason: Constipation Melatonin (Melatonin 3 Mg Tablet) 6 mg PO BEDTIME PRN PRN Reason: Insomnia Montelukast Sodium (Montelukast Sodium 10 Mg Tablet) 10 mg PO DAILY [facility] Last Admin: 01/25/25 08:42 Dose: 10 mg Omeprazole (Omeprazole 40 Mg Capsule.Dr) 40 mg PO BID@0630,1630 [facility] Last Admin: 01/25/25 06:58 Dose: 40 mg Sodium Chloride (0.9 % Sodium Chloride Flush 3 Ml Syringe) 3 ml IVFLUSH QSHIFT [facility] Last Admin: 01/25/25 07:39 Dose: Not Given Sucralfate (Sucralfate 1 Gm Tablet) 1 gm PO QIDACHS [facility] Last Admin: 01/25/25 07:38 Dose: 1 gm Vitamin D (Cholecalciferol (Vitamin D3) 25 Mcg Tablet) 50 mcg PO DAILY [facility] Last Admin: 01/25/25 08:42 Dose: 50 mcg Home Medications ?Medication ?Instructions ?Recorded ?Confirmed ?Last Taken ?Type ezetimibe 10 mg tablet 1 tab PO DAILY 02/23/21 01/24/25 11/25/23 History levothyroxine 50 mcg tablet 1 tab PO DAILY 02/23/21 01/24/25 11/25/23 History montelukast 10 mg tablet 1 tab PO DAILY 02/23/21 01/24/25 11/25/23 History omeprazole 20 mg capsule,delayed 2 cap PO DAILY 02/23/21 01/24/25 11/25/23 History release timolol maleate 0.5 % eye drops 1 drp ophthalmic-Left DAILY 02/23/21 01/24/25 11/25/23 History hydrocodone 5 mg-acetaminophen 325 1 tab PO Q6H PRN Severe Pain 03/08/21 01/24/25 Unknown History mg tablet (Scale Score 7-10) cholecalciferol (vitamin D3) 50 50 mcg PO DAILY 11/26/23 01/24/25 Unknown History mcg (2,000 unit) capsule (Vitamin D3) fluticasone fur. 200 mcg-umeclid 1 ea inhalation DAILY 11/26/23 01/24/25 11/25/23 History 62.5 mcg-vilant 25 mcg inhalat.powder (Trelegy Ellipta) amlodipine 10 mg tablet 10 mg PO DAILY 01/24/25 01/24/25 Unknown History cetirizine 10 mg tablet 10 mg PO DAILY PRN 01/24/25 01/24/25 Unknown History allergies/itching clonidine HCl 0.1 mg tablet 0.2 mg PO BID 01/24/25 01/24/25 Unknown History losartan 100 1 tab PO DAILY 01/24/25 01/24/25 Unknown History mg-hydrochlorothiazide 25 mg tablet rosuvastatin 40 mg tablet 40 mg PO DAILY 01/24/25 01/24/25 Unknown History Physical Exam 2 Vital Signs: Vital Signs: Last Vital Signs Temp 99.1 F 01/25/25 09:00 Pulse 69 01/25/25 09:00 Resp 18 01/25/25 09:00 BP 183/79 H 01/25/25 09:00 Pulse Ox 99 03/25/25 09:00 O2 Del Method Room Air 01/25/25 09:00 BMI result Body Mass Index 21.5 Const: General: cooperative, comfortable, no acute distress, alert and awake Nutritional Appearance: thin Orientation/consciousness: patient oriented x3 Limitations: no limitations HEENT: Head: Yes normocephalic and Yes atraumatic Neck: Neck: Yes trachea midline, Yes supple and Yes no JVD Resp: Effort & Inspection: normal respiratory effort Auscultation: clear to auscultation bilaterally Cardio: Jugular venous distension: no JVD Palpation: normal PMI Rate: r egular rate Rhythm: regular rhythm Heart sounds: S1 normal heart sound present, S2 normal heart sound present, no click, no gallops, no murmurs and no rubs GI: Auscultation: normal bowel sounds Skin: General skin exam: no rashes or lesions noted Neuro: General: patient oriented x3 and no focal motor deficits Extrem: General: Yes no clubbing, cyanosis or edema Objective Labs and Meds 01/24/25 13:10 01/25/25 07:10 Lab results: Laboratory Results - last 24 hr 01/24/25 01/24/25 01/24/25 13:10 16:06 16:07 WBC 10.6 RBC 4.28 Hgb 12.1 Hct 35.8 L MCV 83.6 MCH 28.3 MCHC 33.8 RDW 14.4 Plt Count 190 MPV 10.8 Immature Gran % (Auto) 0.5 H Neut % (Auto) 66.6 Lymph % (Auto) 24.4 [place] % (Auto) 5.7 Eos % (Auto) 2.4 Baso % (Auto) 0.4 Lymph # (Auto) 2.6 [place] # (Auto) 0.6 Eos # (Auto) 0.3 Baso # (Auto) 0.0 Abs Immat Gran (auto) 0.05 H Absolute Neuts (auto) 7.1 Absolute Nucleated RBC 0.000 Nucleated RBC % (auto) 0.0 Sodium 142 Potassium 3.6 Chloride 111 H Carbon Dioxide 23 Anion Gap 12 BUN 37 H Creatinine 2.08 H Estim Creat Clear Calc 15.8 Estimated GFR 22 Random Glucose 114 Calcium 9.5 Magnesium 1.9 Total Bilirubin 0.5 AST 55 H ALT 38 H Alkaline Phosphatase 52 Troponin I High Sens 15.2 B-Natriuretic Peptide 236 H Total Protein 7.2 Albumin 4.0 Lipase 28 TSH 3.46 Urine Color Yellow Urine Appearance Clear Urine pH 6.0 Ur Specific [place] 1.010 Urine Protein 30 (1+) H Urine Glucose (UA) Negative Urine Ketones Negative Urine Blood Trace Urine Nitrite Negative Ur Leukocyte Esterase Small (1+) H Urine RBC 0-2 Urine WBC 0-5 Ur Squamous Epith Cells 0-2 Urine Bacteria None Seen Hyaline Casts 3-5 Ur Random Sodium 66.0 Urine Creatinine 80.70 Influenza Type A (PCR) NEGATIVE Influenza Type B (PCR) NEGATIVE RSV RNA Qual (PCR) NEGATIVE SARS-CoV-2 RNA (RT-PCR) NEGATIVE 01/25/25 07:10 WBC RBC Hgb Hct MCV MCH MCHC RDW Plt Count MPV Immature Gran % (Auto) Neut % (Auto) Lymph % (Auto) [place] % (Auto) Eos % (Auto) Baso % (Auto) Lymph # (Auto) [place] # (Auto) Eos # (Auto) Baso # (Auto) Abs Immat Gran (auto) Absolute Neuts (auto) Absolute Nucleated RBC Nucleated RBC % (auto) Sodium 141 Potassium 3.5 Chloride 111 H Carbon Dioxide 21 L Anion Gap 13 BUN 24 H Creatinine 1.48 H Estim Creat Clear Calc 22.2 Estimated GFR 33 Random Glucose 100 Calcium 9.8 Magnesium Total Bilirubin AST ALT Alkaline Phosphatase Troponin I High Sens B-Natriuretic Peptide Total Protein Albumin Lipase TSH Urine Color Urine Appearance Urine pH Ur Specific [place] Urine Protein Urine Glucose (UA) Urine Ketones Urine Blood Urine Nitrite Ur Leukocyte Esterase Urine RBC Urine WBC Ur Squamous Epith Cells Urine Bacteria Hyaline Casts Ur Random Sodium Urine Creatinine Influenza Type A (PCR) Influenza Type B (PCR) RSV RNA Qual (PCR) SARS-CoV-2 RNA (RT-PCR) Imaging Radiologist's impression: Impressions Chest X-Ray 01/24/25 13:20 IMPRESSION: Cardiomegaly versus pericardial effusion. Mild interstitial edema in the correct clinical settings. Electronically signed by: Taras Fischer MD 01/24/2025 01:33 PM EDT Assessment and Plan (1) Non-cardiac chest pain: Status: Acute Patient with chest pain which has been present for many days and sharp and reproducible unlikely to be cardiac in origin. Most likely musculoskeletal probably from costochondritis. No further cardiac workup is indicated at this point time. There is troponins being negative. EKG changes are suggestive of hypertensive heart disease. (2) Sinus bradycardia: Status: Acute Transient sinus bradycardia which has not resolved. Unlikely to be cause of her dizziness says she is constantly dizzy even now with normal heart rate. Possibly related to clonidine in the setting of acute renal insufficiency as well as use of timolol in the setting of acute renal insufficiency. Try to taper clonidine to 0.1 mg b.i.d. and use alternative antihypertensives. (3) Elevated brain natriuretic peptide (BNP) level: Status: Acute Elevated BNP in this elderly woman with diastolic dysfunction and acute renal insufficiency. No clinical signs of congestive heart failure. Continue aggressive control blood pressure. High likelihood of congestive heart failure in the future. At this point time better blood pressure control is indicated. Continue amlodipine therapy. I would taper clonidine as above and add hydralazine for blood pressure control. Consider renal duplex. From cardiac perspective with normal further workup is indicated. Will follow up if need be. Thank you for allowing me to partake in her care Procedures Date of Service Date of Service: 01/25/25
[2025-01-25 09:43] LABS: Basophils Absolute Auto 0.1 X10*3/uL (0.0-0.2); Basophils Percent Auto 0.5 % (0-2); Eosinophils Absolute Auto 0.3 X10*3/uL (0.0-0.4); Eosinophils Percent Auto 2.4 % (0-4); Hematocrit 42.4 % (37.0-47.0); Hemoglobin 14.5 g/dl (12.0-16.0); Imm Gran Abs Auto 0.03 X10*3/uL (0.00-0.03); Imm Gran Pct Auto 0.3 % (0.0-0.4); Lymphocytes Percent Auto 27.2 % (20-40); MANUAL DIFF FLAG SCAN; Mean Corpuscular HGB Conc 34.2 g/dl (31.0-35.0); Mean Corpuscular Hemoglobin 28.6 pg (27.0-33.0); Mean Corpuscular Volume 83.6 fL (80.0-98.0); Monocytes Absolute Auto 0.6 X10*3/uL (0.1-1.2); Monocytes Percent Auto 5.5 % (2-11); Neutrophils Absolute Auto 7.1 x10*3/uL (2.0-8.3); Neutrophils Percent Auto 64.1 % (45-73); PLT CLUMP 1; Red Blood Count 5.07 X10*6/uL (4.20-5.50); Red Cell Distribution Width 14.1 % (11.0-16.0); SCAN SMEAR FLAG 1
[2025-01-25 09:50] LABS: Platelet Count 165 X10*3/uL (160-400); White Blood Count 11.1 X10*3/uL (4.8-10.8)
[2025-01-25 09:52] LABS: SLIDE REVIEW VERIFIED
[2025-01-25] MEDS: Fluticasone/Umeclidinium/Vilanterol 200/62.5/25 BLST.W.DEV 1 PUFF INHALE (11:31)
--- NOTE | 2025-01-25 12:09 | HO.PM.IMPN ---
Subjective Subjective Date of Service: 01/25/25 Review of Systems Follow up chest ian, KILO and bradycardia Physical Exam Vital Signs: Vital Signs: Last Vital Signs Temp 99.1 F 01/25/25 09:00 Pulse 60 01/25/25 11:35 Resp 18 01/25/25 11:35 BP 102/51 L 01/25/25 10:59 Pulse Ox 99 01/25/25 09:00 O2 Del Method Room Air 01/25/25 09:00 BMI result Body Mass Index 21.5 Appearing in no acute distress lung sounds are clear to auscultation heart regular rate rhythm, clear S1, S2 positive bowel sounds, abdomen is soft, nontender neuro patient is alert x3, no focal deficits Objective Data Active Medications Acetaminophen (Acetaminophen 325 Mg Tablet) 650 mg PO Q6H PRN PRN Reason: Pain, Mild 1-3,fever,headache Hydrocodone Bitart/Acetaminophen (Hydrocodone Bit/Acetam 5/325 Tablet) 1 tab PO Q6H PRN PRN Reason: Severe Pain (Scale Score 7-10) Last Admin: 01/25/25 04:50 Dose: 1 tab Documented By: OSKAR Amlodipine Besylate (Amlodipine Besylate 10 Mg Tablet) 10 mg PO DAILY [facility]; Protocol Last Admin: 01/25/25 08:42 Dose: 10 mg Documented By: NI Atorvastatin Calcium (Atorvastatin Calcium 80 Mg Tablet) 80 mg PO DAILY [facility] Last Admin: 01/25/25 08:43 Dose: 80 mg Documented By: NI Calcium Carbonate (Calcium Carbonate 750 Mg Tab.Chew) 750 mg PO Q4H PRN PRN Reason: Heartburn Clonidine HCl (Clonidine Hcl 0.2 Mg Tablet) 0.2 mg PO BID [facility]; Protocol Last Admin: 01/25/25 08:43 Dose: 0.2 mg Documented By: NI Ezetimibe (Ezetimibe 10 Mg Tablet) 10 mg PO DAILY [facility] Last Admin: 01/25/25 08:43 Dose: 10 mg Documented By: NI Enoxaparin Sodium (Enoxaparin Sodium 30 Mg/0.3 Ml Syringe) 30 mg SUBCUT Q24H [facility] Last Admin: 01/24/25 16:36 Dose: 30 mg Documented By: TAMARA Fluticasone/Umeclidinium/Vilanterol (Fluticasone/Umeclidinium/Vilanterol 200/62.5/25 Blst.W.Dev) 1 puff INHALE RDAILY [facility] Last Admin: 01/25/25 11:31 Dose: 1 puff Documented By: GARRICK Lactated Ringer's (Lr) 1,000 mls @ 100 mls/hr IVCONT .Q10H [facility] Last Admin: 01/25/25 08:37 Dose: 100 mls/hr Documented By: NI Levothyroxine Sodium (Levothyroxine Sodium 50 Mcg Tablet) 50 mcg PO DAILY [facility] Last Admin: 01/25/25 08:43 Dose: 50 mcg Documented By: NI Loratadine (Loratadine 10 Mg Tablet) 10 mg PO DAILY PRN PRN Reason: allergies/itching Magnesium Hydroxide (Milk Of Magnesia 30 Ml Oral.Susp) 30 ml PO DAILY PRN PRN Reason: Constipation Melatonin (Melatonin 3 Mg Tablet) 6 mg PO BEDTIME PRN PRN Reason: Insomnia Montelukast Sodium (Montelukast Sodium 10 Mg Tablet) 10 mg PO DAILY [facility] Last Admin: 01/25/25 08:42 Dose: 10 mg Documented By: NI Omeprazole (Omeprazole 40 Mg Capsule.Dr) 40 mg PO BID@0630,1630 [facility] Last Admin: 01/25/25 06:58 Dose: 40 mg Documented By: OSKAR Sodium Chloride (0.9 % Sodium Chloride Flush 3 Ml Syringe) 3 ml IVFLUSH QSHIFT [facility] Last Admin: 01/25/25 07:39 Dose: Not Given Documented By: HUGO Non-Admin Reason: IV Running Sucralfate (Sucralfate 1 Gm Tablet) 1 gm PO QIDACHS [facility] Last Admin: 01/25/25 11:41 Dose: 1 gm Documented By: NI Vitamin D (Cholecalciferol (Vitamin D3) 25 Mcg Tablet) 50 mcg PO DAILY [facility] Last Admin: 01/25/25 08:42 Dose: 50 mcg Documented By: NI Labs 01/25/25 08:51 01/25/25 07:10 Labs: Laboratory Results - last 24 hr 01/24/25 01/24/25 01/24/25 13:10 16:06 16:07 MCV 83.6 MCH 28.3 MCHC 33.8 RDW 14.4 Plt Count 190 MPV 10.8 Immature Gran % (Auto) 0.5 H Neut % (Auto) 66.6 Lymph % (Auto) 24.4 [place] % (Auto) 5.7 Eos % (Auto) 2.4 Baso % (Auto) 0.4 Lymph # (Auto) 2.6 [place] # (Auto) 0.6 Eos # (Auto) 0.3 Baso # (Auto) 0.0 Abs Immat Gran (auto) 0.05 H Absolute Neuts (auto) 7.1 Absolute Nucleated RBC 0.000 Nucleated RBC % (auto) 0.0 Smear Tech's Comments Anion Gap 12 Estim Creat Clear Calc 15.8 Estimated GFR 22 Random Glucose 114 Calcium 9.5 Magnesium 1.9 Total Bilirubin 0.5 AST 55 H ALT 38 H Alkaline Phosphatase 52 B-Natriuretic Peptide 236 H Total Protein 7.2 Albumin 4.0 Lipase 28 TSH 3.46 Urine Color Yellow Urine Appearance Clear Urine pH 6.0 Ur Specific [place] 1.010 Urine Protein 30 (1+) H Urine Glucose (UA) Negative Urine Ketones Negative Urine Blood Trace Urine Nitrite Negative Ur Leukocyte Esterase Small (1+) H Urine RBC 0-2 Urine WBC 0-5 Ur Squamous Epith Cells 0-2 Urine Bacteria None Seen Hyaline Casts 3-5 Ur Random Sodium 66.0 Urine Creatinine 80.70 Influenza Type A (PCR) NEGATIVE Influenza Type B (PCR) NEGATIVE RSV RNA Qual (PCR) NEGATIVE SARS-CoV-2 RNA (RT-PCR) NEGATIVE 01/25/25 01/25/25 07:10 08:51 MCV 83.6 MCH 28.6 MCHC 34.2 RDW 14.1 Plt Count 165 MPV Not Reportable Immature Gran % (Auto) 0.3 Neut % (Auto) 64.1 Lymph % (Auto) 27.2 [place] % (Auto) 5.5 Eos % (Auto) 2.4 Baso % (Auto) 0.5 Lymph # (Auto) 3.0 [place] # (Auto) 0.6 Eos # (Auto) 0.3 Baso # (Auto) 0.1 Abs Immat Gran (auto) 0.03 Absolute Neuts (auto) 7.1 Absolute Nucleated RBC 0.000 Nucleated RBC % (auto) 0.0 Smear Tech's Comments VERIFIED Anion Gap 13 Estim Creat Clear Calc 22.2 Estimated GFR 33 Random Glucose 100 Calcium 9.8 Magnesium Total Bilirubin AST ALT Alkaline Phosphatase B-Natriuretic Peptide Total Protein Albumin Lipase TSH Urine Color Urine Appearance Urine pH Ur Specific [place] Urine Protein Urine Glucose (UA) Urine Ketones Urine Blood Urine Nitrite Ur Leukocyte Esterase Urine RBC Urine WBC Ur Squamous Epith Cells Urine Bacteria Hyaline Casts Ur Random Sodium Urine Creatinine Influenza Type A (PCR) Influenza Type B (PCR) RSV RNA Qual (PCR) SARS-CoV-2 RNA (RT-PCR) Microbiology Microbiology Results: Microbiology 01/24/25 Unknown Urine Culture - Preliminary Urine clean catch - Clean Catch Midstream Culture too young to evaluate. Assessment and Plan (1) Sinus bradycardia: Status: Acute (2) Acute renal insufficiency: Status: Acute Plan 89-year-old female with history of GERD, hyperlipidemia, hypertension, hypothyroidism, chronic low back pain with right-sided sciatica, post herpetic neuralgia, osteopenia admitted for further management of KILO Acute kidney injury- suspect prerenal CKD stage 3 at baseline urine studies pending IVF Follow I&O Hold nephrotoxins Follow renal funtion/lytes Acute bradycadia has had intermittent episodes in past, had been in the 70s at pcp earlier this month, ocassional 40s EKG without any blocks. Stopped clonidine (recently started) and Timolol cardiology following Positional lightheadedness ?symptomatic bradycardia vs orthostatic hypotension Check orthostatic VS IVF Chronic chest pain/LUQ pain/epigastric pain atypical in nature. Trop wnl, EKG without acute ischemic changes ?gastric in etiology CT abd pelvis negative IV pepcid, carafate outpt follow up Hypothyroidism Levothyroxine Hypertension with hypotension Hold losartan, hydrochlorothiazide d/t KILO and hypotension Continue amlodipine Monitor blood pressures Chronic low back pain with sciatica Continue home meds Unspecified asthma No exacerbation Continue maintenance inhalers, albuterol p.r.n. GERD PPI DVT prophylaxis-Lovenox Full code Quality Stroke Does the patient have a stroke diagnosis?: No VTE Prior VTE?: No VTE Risk Level:: Medical - moderate - high VTE Device Contraindication: Treatment Not Indicated VTE Drug Contraindication: N/A - Med Ordered
[2025-01-25] MEDS: Famotidine/PF 20 MG/2 ML VIAL IVPUSH (12:17)
[2025-01-25] MEDS: Enoxaparin Sodium 30 MG/0.3 ML SYRINGE SUBCUT (14:16)
--- NOTE | 2025-01-25 16:21 | MHC.CM.PN ---
PATIENT LIVES IN APARTMENT ALONE. AMBULATES W/ CANE PRN. HAS HOME MAKING SERVICES 1X/WK. PCP ALE MORRIS MD HCP ON FILE AND VERIFIED. DP: GOAL IS HOME, RESUME HOME MAKING SERVICES, SON TO TRANSPORT. CM WILL CONTINUE TO FOLLOW.
[2025-01-25] MEDS: Melatonin 3 MG TABLET 6 MG PO (19:52)
[2025-01-26 03:22] VITALS: BP 139/64; PULSE 54; RESP 16; TEMP 36.1; O2SAT 97
[2025-01-26] MEDS: Lactated Ringers 1,000 ML 100 ML IVCONT ×3 (03:41→23:51)
[2025-01-26] MEDS: Omeprazole 40 MG CAPSULE.DR PO ×2 (05:54→15:33)
[2025-01-26] MEDS: Sucralfate 1 GM TABLET PO ×4 (06:35→21:02)
[2025-01-26] MEDS: HYDROcodone Bit/Acetam 5/325 TABLET 1 TAB PO ×3 (06:35→21:02)
[2025-01-26 07:29] VITALS: BP 154/67; PULSE 51; RESP 19; TEMP 36.8; O2SAT 98
--- NOTE | 2025-01-26 07:44 | HO.PM.IMPN ---
Subjective Subjective Date of Service: 01/26/25 Interval History: Seen and examined this morning Interval history: Resting comfortably. HR improved. She is experiencing discomfort in the left low back into the left groin. No numbness or tingling. Reports significant improvement in lightheadedness and chest pain. No dyspnea or palpitations. She has been able to ambulate to the bathroom without any lightheadedness. Review of Systems Review of Systems: Yes all other systems are reviewed and are negative Physical Exam Vital Signs: Vital Signs: Last Vital Signs Temp 98.3 F 01/26/25 07:29 Pulse 51 01/26/25 07:29 Resp 19 01/26/25 07:29 BP 154/67 H 01/26/25 07:29 Pulse Ox 98 01/26/25 07:29 O2 Del Method Room Air 01/26/25 07:29 BMI result Body Mass Index 21.5 Constitutional - Awake and Alert, No apparent distress Eyes - PERRLA, EOMI Cardiovascular - S1S2, RRR, HR 60, No edema Respiratory - Normal lung expansion, Normal respiratory effort, No respiratory distress, CTA bilaterally Gastrointestinal - NT / ND; +BS; No rebound or guarding Extremities - no calf tenderness bilaterally, no swelling Skin - Warm/Dry MSK- tenderness to palpation over the left paraspinal muscles into the left groin. No midline tenderness noted. Neurological - Alert & oriented x3, 5/5 strength bilateral lower extremities. Sensation intact Psychological - Appropriate affect Objective Data Active Medications Acetaminophen (Acetaminophen 325 Mg Tablet) 650 mg PO Q6H PRN PRN Reason: Pain, Mild 1-3,fever,headache Hydrocodone Bitart/Acetaminophen (Hydrocodone Bit/Acetam 5/325 Tablet) 1 tab PO Q6H PRN PRN Reason: Severe Pain (Scale Score 7-10) Last Admin: 01/26/25 06:35 Dose: 1 tab Documented By: ANABEL Amlodipine Besylate (Amlodipine Besylate 10 Mg Tablet) 10 mg PO DAILY [facility]; Protocol Last Admin: 01/25/25 08:42 Dose: 10 mg Documented By: NI Atorvastatin Calcium (Atorvastatin Calcium 80 Mg Tablet) 80 mg PO DAILY [facility] Last Admin: 01/25/25 08:43 Dose: 80 mg Documented By: NI Calcium Carbonate (Calcium Carbonate 750 Mg Tab.Chew) 750 mg PO Q4H PRN PRN Reason: Heartburn Ezetimibe (Ezetimibe 10 Mg Tablet) 10 mg PO DAILY [facility] Last Admin: 01/25/25 08:43 Dose: 10 mg Documented By: NI Enoxaparin Sodium (Enoxaparin Sodium 30 Mg/0.3 Ml Syringe) 30 mg SUBCUT Q24H [facility] Last Admin: 01/25/25 14:16 Dose: 30 mg Documented By: NI Fluticasone/Umeclidinium/Vilanterol (Fluticasone/Umeclidinium/Vilanterol 200/62.5/25 Blst.W.Dev) 1 puff INHALE RDAILY [facility] Last Admin: 01/25/25 11:31 Dose: 1 puff Documented By: BRESNE Lactated Ringer's (Lr) 1,000 mls @ 100 mls/hr IVCONT .Q10H [facility] Last Admin: 01/26/25 03:41 Dose: 100 mls/hr Documented By: ANABEL Levothyroxine Sodium (Levothyroxine Sodium 50 Mcg Tablet) 50 mcg PO DAILY [facility] Last Admin: 01/25/25 08:43 Dose: 50 mcg Documented By: NI Loratadine (Loratadine 10 Mg Tablet) 10 mg PO DAILY PRN PRN Reason: allergies/itching Magnesium Hydroxide (Milk Of Magnesia 30 Ml Oral.Susp) 30 ml PO DAILY PRN PRN Reason: Constipation Melatonin (Melatonin 3 Mg Tablet) 6 mg PO BEDTIME PRN PRN Reason: Insomnia Last Admin: 01/25/25 19:52 Dose: 6 mg Documented By: ANABEL Montelukast Sodium (Montelukast Sodium 10 Mg Tablet) 10 mg PO DAILY [facility] Last Admin: 01/25/25 08:42 Dose: 10 mg Documented By: NI Omeprazole (Omeprazole 40 Mg Capsule.Dr) 40 mg PO BID@0630,1630 [facility] Last Admin: 01/26/25 05:54 Dose: 40 mg Documented By: ANABEL Sodium Chloride (0.9 % Sodium Chloride Flush 3 Ml Syringe) 3 ml IVFLUSH QSHIFT [facility] Last Admin: 01/26/25 00:30 Dose: Not Given Documented By: ANABEL Non-Admin Reason: IV Running Sucralfate (Sucralfate 1 Gm Tablet) 1 gm PO QIDACHS [facility] Last Admin: 01/26/25 06:35 Dose: 1 gm Documented By: ANABEL Vitamin D (Cholecalciferol (Vitamin D3) 25 Mcg Tablet) 50 mcg PO DAILY [facility] Last Admin: 01/25/25 08:42 Dose: 50 mcg Documented By: NI Labs 01/25/25 08:51 01/26/25 07:56 Labs: Laboratory Results - last 24 hr 01/25/25 01/25/25 07:10 08:51 MCV 83.6 MCH 28.6 MCHC 34.2 RDW 14.1 Plt Count 165 MPV Not Reportable Immature Gran % (Auto) 0.3 Neut % (Auto) 64.1 Lymph % (Auto) 27.2 Curry % (Auto) 5.5 Eos % (Auto) 2.4 Baso % (Auto) 0.5 Lymph # (Auto) 3.0 Curry # (Auto) 0.6 Eos # (Auto) 0.3 Baso # (Auto) 0.1 Abs Immat Gran (auto) 0.03 Absolute Neuts (auto) 7.1 Absolute Nucleated RBC 0.000 Nucleated RBC % (auto) 0.0 Smear Tech's Comments VERIFIED Anion Gap 13 Estim Creat Clear Calc 22.2 Estimated GFR 33 Random Glucose 100 Calcium 9.8 Microbiology Microbiology Results: Microbiology 01/24/25 Unknown Urine Culture - Preliminary Urine clean catch - Clean Catch Midstream Culture too young to evaluate. Assessment and Plan (1) Sinus bradycardia: Status: Acute (2) Acute renal insufficiency: Status: Acute Plan 89-year-old female with history of GERD, hyperlipidemia, hypertension, hypothyroidism, chronic low back pain with right-sided sciatica, post herpetic neuralgia, osteopenia admitted for further management of KILO Acute kidney injury- suspect prerenal CKD stage 3 at baseline. Creat trending down. 1.42, baseline 0.81 urine studies pending IVF Follow I&O Hold nephrotoxins Follow renal funtion/lytes Acute bradycadia has had intermittent episodes in past, had been in the 70s at pcp earlier this month, ocassional 40s EKG without any blocks. Stopped clonidine (recently started) and Timolol cardiology following Positional lightheadedness resolved, likely orthostatic Left low back/groin pain lidocaine patches, tylenol, wam compresses Chronic chest pain/LUQ pain/epigastric pain- resolved atypical in nature. Trop wnl, EKG without acute ischemic changes ?gastric in etiology CT abd pelvis negative IV pepcid given x1. Continue omeprazole and carafate outpt follow up Hypothyroidism Levothyroxine Hypertension with hypotension Hold losartan, hydrochlorothiazide d/t KILO and hypotension Continue amlodipine Monitor blood pressures Chronic low back pain with sciatica Continue home meds Unspecified asthma No exacerbation Continue maintenance inhalers, albuterol p.r.n. GERD PPI Glaucoma Hold timolol due to bradycardia Follow-up with ophthalmology for further recommendations DVT prophylaxis-Lovenox Full code Patient requires ongoing inpatient stay for ongoing cardiac monitoring due to bradycardia, now with significant medication changes which will require close monitoring of vital signs Quality Stroke Does the patient have a stroke diagnosis?: No VTE Prior VTE?: No VTE Risk Level:: Medical - moderate - high VTE Device Contraindication: Treatment Not Indicated VTE Drug Contraindication: N/A - Med Ordered
[2025-01-26] MEDS: Montelukast Sodium 10 MG TABLET PO (08:06)
[2025-01-26] MEDS: Atorvastatin Calcium 80 MG TABLET PO (08:06)
[2025-01-26] MEDS: Cholecalciferol (Vitamin D3) 25 MCG TABLET 50 MCG PO (08:06)
[2025-01-26] MEDS: Levothyroxine Sodium 50 MCG TABLET PO (08:06)
[2025-01-26] MEDS: amLODIPine Besylate 10 MG TABLET PO (08:06)
[2025-01-26] MEDS: Ezetimibe 10 MG TABLET PO (08:06)
[2025-01-26] MEDS: Fluticasone/Umeclidinium/Vilanterol 200/62.5/25 BLST.W.DEV 1 PUFF INHALE (08:26)
[2025-01-26 08:27] VITALS: PULSE 51; RESP 19; O2SAT 98
[2025-01-26 08:53] LABS: Anion Gap 12 (12-20); Blood Urea Nitrogen 18 mg/dL (9-16); Calcium 9.6 mg/dL (8.4-10.2); Carbon Dioxide 26 mmol/L (22-29); Chloride 108 mmol/L (96-108); Creatinine Clr Calc Pharmacy 23.1; Estimated Glomerular Filt Rate 35; Glucose Random 95 mg/dL (60-115); Potassium 3.8 mmol/L (3.3-5.1); Sodium 142 mmol/L (135-145)
--- NOTE | 2025-01-26 13:39 | MHC.CM.PN ---
per rounds pt not medically stable dc plan remains home
[2025-01-26] MEDS: Lidocaine 4 % Patch ADH..PATCH 2 PATCH TRANSDERMA (15:34)
[2025-01-26] MEDS: Enoxaparin Sodium 30 MG/0.3 ML SYRINGE SUBCUT (15:35)
[2025-01-26 15:37] VITALS: BP 146/67; PULSE 72; RESP 14; TEMP 37.2; O2SAT 97
[2025-01-26 19:51] VITALS: BP 133/65; PULSE 75; RESP 18; TEMP 37.1; O2SAT 98
[2025-01-26] MEDS: Melatonin 3 MG TABLET 6 MG PO (21:03)
[2025-01-27 03:24] VITALS: BP 169/73; PULSE 60; RESP 18; TEMP 37.1; O2SAT 97
[2025-01-27] MEDS: Sucralfate 1 GM TABLET PO ×2 (05:52→11:57)
[2025-01-27] MEDS: HYDROcodone Bit/Acetam 5/325 TABLET 1 TAB PO ×2 (05:52→11:57)
[2025-01-27] MEDS: Omeprazole 40 MG CAPSULE.DR PO (05:53)
[2025-01-27 07:35] VITALS: BP 182/79; PULSE 64; RESP 18; TEMP 36.6; O2SAT 96
[2025-01-27] MEDS: Ezetimibe 10 MG TABLET PO (08:03)
[2025-01-27] MEDS: amLODIPine Besylate 10 MG TABLET PO (08:03)
[2025-01-27] MEDS: Atorvastatin Calcium 80 MG TABLET PO (08:03)
[2025-01-27] MEDS: 0.9 % Sodium Chloride Flush 3 ML SYRINGE IVFLUSH (08:03)
[2025-01-27] MEDS: Levothyroxine Sodium 50 MCG TABLET PO (08:03)
[2025-01-27] MEDS: Cholecalciferol (Vitamin D3) 25 MCG TABLET 50 MCG PO (08:03)
[2025-01-27] MEDS: Montelukast Sodium 10 MG TABLET PO (08:03)
[2025-01-27] MEDS: Lidocaine 4 % Patch ADH..PATCH 2 PATCH TRANSDERMA (08:04)
[2025-01-27] MEDS: Fluticasone/Umeclidinium/Vilanterol 200/62.5/25 BLST.W.DEV 1 PUFF INHALE (08:31)
[2025-01-27 08:32] VITALS: PULSE 75; RESP 16; O2SAT 97
--- NOTE | 2025-01-27 08:43 | MHC.CM.PN ---
PT rec [facility]. CM reviewed recommendation w/ patient and son, Mario. They would like further discuss and will update CM with decision. They are agreeable to referrals to [facility] (no preference) and [facility] while deciding, and report they are leaning toward home w/ services.
[2025-01-27 11:10] LABS: Anion Gap 12 (12-20); Blood Urea Nitrogen 14 mg/dL (9-16); Carbon Dioxide 24 mmol/L (22-29); Chloride 109 mmol/L (96-108); Creatinine Clr Calc Pharmacy 29.3; Estimated Glomerular Filt Rate 46; Glucose Random 182 mg/dL (60-115); Potassium 4.1 mmol/L (3.3-5.1); Sodium 141 mmol/L (135-145)
[2025-01-27 11:34] VITALS: BP 118/57; PULSE 67; RESP 18; O2SAT 97
--- NOTE | 2025-01-27 13:02 | P.DS_ITS ---
DS: Providers Provider Date of Service: 01/27/25 Date of admission: 01/24/25 15:15 Date of discharge: 01/27/25 Primary care physician: Gerardo Teresa MD Consults: 01/24/25 15:38 Consult to Cardiology Routine Consulting Provider: [facility] Reason for consultation: bradycardia, lightheaded Attending physician on discharge: David Khan Discharging clinician: Madhavi Santos DS: Diagnosis Discharge Diagnosis (1) Sinus bradycardia: Status: Acute (2) Acute renal insufficiency: Status: Acute DS: Summary Hospital Course Hospital Course: From H&P on the day of admission 89-year-old female with history of GERD, hyperlipidemia, hypertension, hypothyroidism, chronic low back pain with right- sided sciatica, post herpetic neuralgia, osteopenia presented to the ED earlier today for evaluation of chest pain. She states she has longstanding lower left- sided chest pain that has been intermittent over the last few months and has been more frequent over the last 2 days. She states she feels she had a bubble in her chest as if she needs to burp. She rates this as a 3/10 currently but occasionally gets sharp pains of pain rated a 10/10. She feels this radiate to left arm and through the chest to the back. Denies any improvement or worsening of pain with changes in position. She denies any associated dyspnea, orthopnea, palpitations. She does report positional lightheadedness and nausea but no vomiting. She states the symptoms have also been ongoing for months but worsening since Friday. Feels the symptoms are more continuous. She is also reporting epigastric pain that worsens when she is hungry and worsens after she has eaten. As a result, she has not been eating as much but states her fluid intake has not worsened. She states she drinks about 2 glasses of water every 3 hours. No fevers, chills, diarrhea. Since arrival, patient has been bradycardic in the 40s (75 @PCP office 01/06/25) but blood pressures stable. Hematology studies unremarkable. Creatinine 2.08, baseline around 1.2. Electrolyte levels normal except for chloride 111. AST 55, ALT 38. Troponin 15.2, BNP 238. Negative for COVID, RSV, flu . CXR shows possible cardiomegaly vs pericardial effusion vs mild interstitial edema. In the ED, has received normal saline. Acute kidney injury- suspect prerenal Losartan and hydrochlorothiazide placed on hold. CKD stage 3 at baseline. Creat trending down to 1.12 with IV fluid. baseline 0.81. Acute bradycadia has had intermittent episodes in past, had been in the 70s at pcp earlier this month, occasional 40s. EKG without any blocks. Stopped clonidine (recently started) and Timolol Positional lightheadedness. resolved, likely orthostatic Chronic chest pain/LUQ pain/epigastric pain- resolved atypical in nature. Trop wnl, EKG without acute ischemic changes. CT abd pelvis negative. Continue omeprazole. outpt follow up. aseen by cardiology, No further inpatient cardiac workup recommended Hypothyroidism Levothyroxine Hypertension with hypotension Hold losartan, hydrochlorothiazide d/t KILO and hypotension Continue amlodipine. Continues to have few high blood pressure readings but overall improved. may need further med adjustment, d/c home with vna services for close monitoring Chronic low back pain with sciatica Continue home meds Seen by Physical therapy. Recommended short-term rehab however family has elected to take her home with VNA services. Time Attestation Discharge Coordination Time (in mins): 36 Quality: Safe Use of Opioids Does Pt have an Active Cancer Diagnosis on the Problem List?: No Quality: Stroke Does the patient have a stroke diagnosis?: No Physical Exam Vital Signs: Vital Signs: Last Vital Signs Temp 97.8 F 01/27/25 07:35 Pulse 67 01/27/25 11:34 Resp 18 01/27/25 11:34 BP 118/57 L 01/27/25 11:34 Pulse Ox 97 01/27/25 11:34 O2 Del Method Room Air 01/27/25 11:34 BMI result Body Mass Index 21.5 Const: General: cooperative, comfortable, alert and awake Nutritional Appearance: average body habitus Resp: Effort & Inspection: normal respiratory effort, able to speak in complete sentences, no respiratory distress and no use of accessory muscles GI: Inspection: No distended Palpation (GI): Soft to palpation DS: Data Data Completed and Pending Labs on day of discharge: Laboratory Results - last 24 hr 01/27/25 10:16 Sodium 141 Potassium 4.1 Chloride 109 H Carbon Dioxide 24 Anion Gap 12 BUN 14 Creatinine 1.12 Estim Creat Clear Calc 29.3 Estimated GFR 46 Random Glucose 182 H Calcium 10.0 Discharge Plan Discharge Anticipated Discharge Date/Time: 01/27/25 13:09 Patient Disposition: Home Health Service Discharge Diagnosis: KILO Bradycardia Referrals: [facility] [Outside] - 3-5 Days (Fabricio will call you to schedule home physical therapy appointments starting next week. ) Gerardo Teresa MD [Primary Care Provider] - 1 Week Discharge Medications: Continued levothyroxine 50 mcg tablet 1 tab PO DAILY omeprazole 20 mg capsule,delayed release(DR/EC) 2 cap PO DAILY montelukast 10 mg tablet 1 tab PO DAILY ezetimibe 10 mg tablet 1 tab PO DAILY Trelegy Ellipta 200-62.5-25 mcg blister with device 1 ea inhalation DAILY cholecalciferol (vitamin D3) [Vitamin D3] 50 mcg (2,000 unit) Capsule 50 mcg PO DAILY cetirizine 10 mg tablet 10 mg PO DAILY PRN (Reason: allergies/itching) amlodipine 10 mg tablet 10 mg PO DAILY rosuvastatin 40 mg tablet 40 mg PO DAILY hydrocodone-acetaminophen 5-325 mg tablet 1 tab PO Q6H PRN (Reason: Severe Pain (Scale Score 7-10)) Discontinued timolol maleate 0.5 % drops 1 drp ophthalmic-Left DAILY clonidine HCl 0.1 mg tablet 0.2 mg PO BID losartan-hydrochlorothiazide 100-25 mg tablet 1 tab PO DAILY Discharge Orders: Discharge Order (Routine); Ordered 01/27/25 Ordered By: Madhavi Santos Activity on Discharge: As tolerated Stand Alone Forms: Patient Portal Discharge page Print Language: Persian Care Plan Goals: See below Health Concerns: Bradycardia KILO on CKD 3 High blood pressure Plan of Treatment: Heart rate improved after stopping clonidine Kidney function getting better. Stop taking clonidine losartan/hydrochlorothiazide for now Stop taking timolol, call uniforms sales representative for alternative medication options Call to schedule outpatient follow-up with PCP for close monitoring of blood pressure/kidney function Assessment: See discharge summary
--- NOTE | 2025-01-27 13:18 | W.MHC.F2F ---
Service Date Service Date: 01/27/25 Encounter Date of encounter: 01/27/25 Reasons for Services Signs and symptoms assessed: Needs nursing home for close blood pressure monitoring Reason for nursing home: other MD Overseeing Care: Gerardo Teresa Homebound: Leaving the home is medically contraindicated at this time without the asist of a device and/or another person due th the listed conditions above and below. Reason homebound: weakness related to hospital stay Certification: Based on the above findings, I certify that this patient is confined to the home and needs intermittent nursing home care, physical therapy and/or speech therapy, or continues to need occupational therapy. The patient is under my care, and I have initiated the establishment of the plan of care. The patient will be followed by a physician who will periodically review the plan of care. Time Spent With Patient Time: Total time managing care of this patient today ____ minutes.
== END 2025-01-27 15:40 | disposition home health service (06) | DRG 684 ==
LOC: HO.ED 14:28 → HO.EDOVER 15:23 → HO.S3 01-25 07:19
PROVIDERS: Physician Assistant; Physician Assistant Medical; Admitting Provider Nurse Practitioner Acute Care; Emergency Provider Emergency Medicine Emergency Medical Services; PCP Internal Medicine; Visit Provider Physician Assistant Medical
DX: N17.9 Acute kidney failure, unspecified (principal); E03.9 Hypothyroidism, unspecified; I12.9 Hypertensive chronic kidney disease with stage 1 through stage 4 chronic kidney disease, or unspecified chronic kidney disease; N18.30 Chronic kidney disease, stage 3 unspecified; K21.9 Gastro-esophageal reflux disease without esophagitis; R00.1 Bradycardia, unspecified; M54.41 Lumbago with sciatica, right side; I95.9 Hypotension, unspecified; T46.5X5A Adverse effect of other antihypertensive drugs, initial encounter; Z20.822 Contact with and (suspected) exposure to COVID-19; Z87.891 Personal history of nicotine dependence; Z79.890 Hormone replacement therapy; Z79.899 Other long term (current) drug therapy
CPT/HCPCS: 0241U; 36415; 71045; 71250; 74176; 80048; 80053; 81001; 82570; 83690; 83735; 83880; 84300; 84443; 84484; 85025; 87086; 93005; 94640; 97162; 99285; J1650; J7120

== ENCOUNTER → 2025-01-24 12:52 | Outpatient (BNV) | payer MEDICARE, MEDICAID, SELFPAY | PROVIDERS: Emergency Provider Emergency Medicine Emergency Medical Services; PCP Internal Medicine; Visit Provider Radiology Diagnostic Radiology | DX: R07.9 Chest pain, unspecified (principal); N28.1 Cyst of kidney, acquired | CPT/HCPCS: 71045; 71250; 74176 ==

== ENCOUNTER 2025-01-24 15:15 | Outpatient (BNV) | payer MEDICARE, MEDICAID, SELFPAY | END 2025-01-25 07:50 | PROVIDERS: Admitting Provider Nurse Practitioner Acute Care; Emergency Provider Emergency Medicine Emergency Medical Services; PCP Internal Medicine; Visit Provider Internal Medicine Cardiovascular Disease | DX: R94.31 Abnormal electrocardiogram [ECG] [EKG] (principal); R00.1 Bradycardia, unspecified | CPT/HCPCS: 93010 ==

== ENCOUNTER → 2025-01-24 15:15 | Outpatient (BNV) | payer MEDICARE, MEDICAID, SELFPAY | PROVIDERS: Admitting Provider Nurse Practitioner Acute Care; Emergency Provider Emergency Medicine Emergency Medical Services; PCP Internal Medicine; Visit Provider Internal Medicine Cardiovascular Disease | DX: R07.89 Other chest pain (principal); R00.1 Bradycardia, unspecified; R79.89 Other specified abnormal findings of blood chemistry | CPT/HCPCS: 93010; 99222 ==

== ENCOUNTER → 2025-01-24 15:15 | Outpatient (BNV) | payer MEDICARE, MEDICAID, SELFPAY | PROVIDERS: Admitting Provider Nurse Practitioner Acute Care; Emergency Provider Emergency Medicine Emergency Medical Services; PCP Internal Medicine; Visit Provider Nurse Practitioner Acute Care | DX: R00.1 Bradycardia, unspecified (principal); N28.9 Disorder of kidney and ureter, unspecified | CPT/HCPCS: 99232 ==